=== PATIENT | female | born 1945 | race Caucasian/White ===

== ENCOUNTER → 2017-07-29 15:54 | Outpatient (CLI) | payer MEDICARE, OTHER, SELFPAY | PROVIDERS: Family Provider Family Medicine; PCP Family Medicine; Visit Provider Family Medicine | DX: R30.0 Dysuria (principal) | CPT/HCPCS: 87086; 87088 ==

== ENCOUNTER → 2017-09-05 12:55 | Outpatient (CLI) | payer MEDICARE, OTHER, SELFPAY ==
--- NOTE | 2017-09-05 12:58 | CT_ITS ---
STUDY: CT CHEST WITHOUT CONTRAST REASON FOR EXAM: Female, 71 years old. COPD /EMPHYSEMA FOLLOW UP PRIOR SMOKER-QUIT RADIATION DOSAGE (If Supplied By Facility): CTDIvol = ( 20.13 ) mGy, DLP = ( 726.59 ) mGycm TECHNIQUE: Transaxial imaging was performed without the administration of intravenous contrast material. Individualized dose optimization techniques were used for this CT. COMPARISON: 39 FINDINGS: There is no pneumothorax. There are emphysematous changes of the lungs with emphysematous blebs. There is no demonstrated pleural abnormality. There are calcifications of the coronary arteries. Normal mediastinum. Normal hilar regions. Normal pulmonary arteries. There is atherosclerotic calcification of the aortic arch with tortuosity and elongation of the aortic arch and descending thoracic aorta. There are multi-level degenerative changes of the thoracic spine. The gallbladder is not visualized. CT/Chest without Contrast IMPRESSION: Emphysematous changes of the lungs. There are coronary arterial calcifications. Electronically Signed: Saroj Dumont MD at 17:41 EDT , Service support ,
[2017-09-05 14:03] LABS: Erythrocyte Sedimentation Rate 16 mm/hr (0-30)
[2017-09-05 14:15] LABS: Rheumatoid Factor < 10.0 IU/mL (<15)
[2017-09-07 14:26] LABS: Angiotensin Convert Enzyme 26 U/L (14-82)
[2017-09-07 14:31] LABS: ANTINUCLEAR ANTIBODIES DIRECT Positive (Negative)
== END ==
PROVIDERS: Family Provider Family Medicine; PCP Family Medicine; Visit Provider Internal Medicine Pulmonary Disease
DX: J44.9 Chronic obstructive pulmonary disease, unspecified (principal)
CPT/HCPCS: 36415; 71250; 82164; 85652; 86038; 86431

== ENCOUNTER → 2017-12-12 07:13 | Outpatient (CLI) | payer MEDICARE, OTHER, SELFPAY ==
[2017-12-12 07:45] LABS: Absolute Lymphocyte Count 1.83 X10^3/ul (0.83-4.51); Absolute Neutrophil Count 5.8 X10^3/uL (2.0-7.7); Basophil# 0.09 X10^3/uL; Eosinophil# 0.28 X10^3/uL; Eosinophils% 3.2 % (0-5); Hematocrit 43.3 % (37-47); Hemoglobin 13.3 g/dl (12.0-15.0); Lymphocyte # 1.83 X10^3/ul (4.0); Lymphocyte % 20.7 % (19-41); Mean Corp Hgb Conc 30.7 g/gl (32-36); Mean Corpuscular Hgb 25.7 pg (27.0-32.0); Mean Corpuscular Volume 83.6 fL (81-99); Mean Platelet Vol. 10.1 fl (6.2-12.0); Monocyte# 0.89 X10^3/uL; Neutrophil # 5.76 X10^3/uL (2.7-7.7); Platelet Count 228 K/mm3 (150-450); RBC Distribution Width CV 13.5 % (11.6-14.6); RBC Distribution Width SD 41.1 fl (35.1-43.9); Red Blood Count 5.18 M/mm3 (4.2-5.4); White Blood Count 8.9 K/mm3 (4.4-11.0)
[2017-12-12 07:46] LABS: POSITIVE COUNT NO; POSITIVE DIFFERENTIAL NO; POSITIVE MORPHOLOGY NO
[2017-12-12 08:23] LABS: Hemoglobin A1c 6.7 % (4.2-6.3)
[2017-12-12 08:40] LABS: ALB/GLOB Ratio 0.9 RATIO (0.9-2.4); AST(SGOT) 73 U/L (15-37); Alanine Aminotransfer ALT/SGPT 84 U/L (13-56); Albumin, Serum 3.4 g/dL (3.2-5.0); Alkaline Phosphatase 145 U/L (45-117); Anion Gap 6 (5-15); BUN 10 mg/dL (7-18); BUN/Creat Ratio 11.8 RATIO (10-20); Calcium,Total 9.1 mg/dL (8.5-10.1); Chloride 101 mmol/L (98-107); Cholesterol 146 mg/dL (200); Creatinine, Serum 0.85 mg/dL (0.55-1.02); EST Glomerular Filtration Rate 70 mL/min (>60); Est Glom Filt Rate - Afr Amer 85 mL/min (>60); Globulin 3.9 g/dL (2.2-4.2); Glucose 105 mg/dL (74-106); High Density Lipoprotein 38 mg/dL; Potassium 4.7 mmol/L (3.5-5.1); Protein, Total 7.3 g/dL (6.4-8.2); Sodium Level 140 mmol/L (136-145); Thyroid Stim Hormone (TSH) 0.97 uIU/mL (0.358-3.74); Triglycerides 174 mg/dL; Very Low Density Lipoprotein 35 mg/dL (5-40)
== END ==
PROVIDERS: Family Provider Family Medicine; PCP Family Medicine; Visit Provider Family Medicine
DX: E11.9 Type 2 diabetes mellitus without complications (principal); E78.5 Hyperlipidemia, unspecified; E03.9 Hypothyroidism, unspecified; R53.83 Other fatigue; E55.9 Vitamin D deficiency, unspecified
CPT/HCPCS: 36415; 80053; 80061; 82306; 83036; 84443; 85025

== ENCOUNTER → 2018-03-06 08:00 | Outpatient (CLI) | payer MEDICARE, OTHER, SELFPAY | PROVIDERS: Family Provider Family Medicine; PCP Family Medicine; Visit Provider Family Medicine | DX: Z12.31 Encounter for screening mammogram for malignant neoplasm of breast (principal) | CPT/HCPCS: 77063; 77067 ==

== ENCOUNTER → 2018-05-02 10:42 | Outpatient (CLI) | payer MEDICARE, OTHER, SELFPAY ==
[2018-05-02 11:40] LABS: Erythrocyte Sedimentation Rate 19 mm/hr (0-30)
[2018-05-03 16:08] LABS: Anti-Scleroderma-70 AB <0.2 AI (0.0-0.9); RNP Ab 0.3 AI (0.0-0.9); SJOGREN'S Anti-SS-A test < 0.2 AI (0.0-0.9); SJOGREN'S Anti-SS-B test < 0.2 AI (0.0-0.9); Smith Ab <0.2 AI (0.0-0.9)
[2018-05-04 12:09] LABS: Anti-dsDNA Ab <1 IU/mL (0-9)
== END ==
PROVIDERS: Family Provider Family Medicine; PCP Family Medicine; Referring Provider Internal Medicine Pulmonary Disease; Visit Provider Internal Medicine Pulmonary Disease
DX: J84.10 Pulmonary fibrosis, unspecified (principal); R76.0 Raised antibody titer
CPT/HCPCS: 36415; 85652; 86225; 86235

== ENCOUNTER → 2018-12-04 | Outpatient (CLI) | payer MEDICARE, OTHER, SELFPAY ==
[2018-11-06 10:32] VITALS: BMI 33.4
[2018-12-04 10:21] LABS: Absolute Lymphocyte Count 1.45 X10^3/ul (0.83-4.51); Absolute Neutrophil Count 4.6 X10^3/uL (2.0-7.7); Basophil# 0.07 X10^3/uL; Eosinophil# 0.27 X10^3/uL; Eosinophils% 3.7 % (0-5); Hematocrit 41.6 % (37-47); Hemoglobin 12.8 g/dl (12.0-15.0); Lymphocyte # 1.45 X10^3/ul (4.0); Lymphocyte % 19.9 % (19-41); Mean Corp Hgb Conc 30.8 g/gl (32-36); Mean Corpuscular Volume 81.4 fL (81-99); Mean Platelet Vol. 10.1 fl (6.2-12.0); Monocyte# 0.86 X10^3/uL; Monocyte% 11.8 % (0-10); Neutrophil # 4.63 X10^3/uL (2.7-7.7); Neutrophil % 63.3 % (47-70); Platelet Count 289 K/mm3 (150-450); RBC Distribution Width CV 14.4 % (11.6-14.6); RBC Distribution Width SD 41.9 fl (35.1-43.9); Red Blood Count 5.11 M/mm3 (4.2-5.4); White Blood Count 7.3 K/mm3 (4.4-11.0)
[2018-12-04 10:31] LABS: POSITIVE COUNT NO; POSITIVE DIFFERENTIAL NO; POSITIVE MORPHOLOGY NO
[2018-12-04 10:47] LABS: Microalbumin,Random Urine < 5.0 mg/L (NO RANGE EST.)
[2018-12-04 10:51] LABS: Hemoglobin A1c 6.9 % (4.2-6.3)
[2018-12-04 10:53] LABS: ALB/GLOB Ratio 0.8 RATIO (0.9-2.4); AST(SGOT) 63 U/L (15-37); Alanine Aminotransfer ALT/SGPT 46 U/L (13-56); Alkaline Phosphatase 119 U/L (45-117); Anion Gap 4 (5-15); BUN 7 mg/dL (7-18); BUN/Creat Ratio 9.6 RATIO (10-20); Chloride 100 mmol/L (98-107); Cholesterol 170 mg/dL (200); Creatinine, Serum 0.73 mg/dL (0.55-1.02); EST Glomerular Filtration Rate 83 mL/min (>60); Est Glom Filt Rate - Afr Amer 101 mL/min (>60); Globulin 3.9 g/dL (2.2-4.2); Glucose 102 mg/dL (74-106); High Density Lipoprotein 37 mg/dL; Potassium 4.7 mmol/L (3.5-5.1); Protein, Total 6.9 g/dL (6.4-8.2); Sodium Level 137 mmol/L (136-145); T4 Free Direct 1.12 ng/dL (0.76-1.46); Thyroid Stim Hormone (TSH) 1.27 uIU/mL (0.358-3.74); Triglycerides 211 mg/dL; Very Low Density Lipoprotein 42 mg/dL (5-40)
== END | disposition home or self-care (01) ==
LOC: LAB 10:03
PROVIDERS: Family Provider Family Medicine; PCP Family Medicine; Referring Provider Family Medicine; Visit Provider Family Medicine
DX: E11.9 Type 2 diabetes mellitus without complications (principal); E03.9 Hypothyroidism, unspecified; E78.5 Hyperlipidemia, unspecified; R53.83 Other fatigue; Z51.81 Encounter for therapeutic drug level monitoring
CPT/HCPCS: 36415; 80053; 80061; 82043; 82570; 83036; 84439; 84443; 85025

== ENCOUNTER → 2018-12-14 | Outpatient (CLI) | payer MEDICARE, OTHER, SELFPAY ==
[2018-11-06 10:32] VITALS: BMI 33.4
--- NOTE | 2018-12-14 08:43 | RAD_ITS ---
HISTORY: CHRONIC PAIN, NKI ADDITIONAL HISTORY: None provided. COMPARISON: None TECHNIQUE: Right shoulder 4 views Number of images including paperwork: 4 FINDINGS: BONES: No acute fracture. JOINTS: No subluxation. Mild degenerative changes of the glenohumeral joint. Moderate degenerative changes of the acromion clavicular joint. SOFT TISSUES: No distinct foreign body. Mild apical pleural parenchymal scarring. RAD/Shoulder min 2 Views IMPRESSION: Degenerative changes without acute osseous abnormality. at 2220 Reported and signed by: Ifeoma Ramsey MD Electronically Signed: Ifeoma Ramsey MD at 22:20 EDT Tel , Service support ,
--- NOTE | 2018-12-14 08:46 | ECHOD_ITS ---
Reason For Study: murmur Procedure This was a 2D Doppler, Color Flow transthoracic echocardiogram. The study was technically difficult. Exam performed in department. Left Ventricle Normal LV size. Sigmoid septum. Left ventricular systolic function is normal. The estimated ejection fraction is 65 %. Diastolic function is indeterminate. No regional wall motion abnormalities noted. Right Ventricle Normal RV size. Normal systolic function. Atria The left atrium is mildly enlarged. Normal right atrium. Aneurysmal atrial septum. No doppler evidence for ASD. Mitral Valve There is mild mitral annular calcification. Mild diffuse mitral valve thickening. Equivocal mitral valve prolapse. Mild (1+) mitral valve insufficiency. Tricuspid Valve Normal tricuspid valve. Mild to moderate (1-2+) eccentric tricuspid valve insufficiency. Right ventricular systolic pressure estimated to be 37 mmHg. Aortic Valve Trisinus/trileaflet aortic valve. Mild diffuse aortic valve thickening. Pulmonic Valve The pulmonic valve is not well visualized. Mild (1+) pulmonic valve insufficiency. Great Vessels Normal sized aortic root. Pericardium/Pleural No pericardial effusion. MMode/2D Measurements & Calculations LVIDd: 4.2 cm IVSd: 1.7 cm Ao root diam: 3.0 cm LVIDs: 2.9 cm LVPWd: 1.0 cm RVDd: 3.5 cm FS: 30.3 % LAV(MOD-bp): 81.0 ml LA A4 area: 24.6 cm2 LA dimension(2D): 4.1 cm LAV(MOD-bp) Indexed: 40.9 ml/m2 LAV(MOD-sp2): 77.7 ml LAV(MOD-sp4): 85.0 ml RA A4 area: 17.2 cm2 Time Measurements MV dec time: 0.27 sec Doppler Measurements & Calculations MV E max erick: 71.0 cm/sec Lat Peak E' Erick: 10.1 cm/sec Med Peak E' Erick: 7.4 cm/sec MV A max erick: 80.2 cm/sec E/E' lat: 7.0 E/E' med: 9.7 MV E/A: 0.88 Ao V2 max: 141.8 cm/sec LV V1 max: 123.1 cm/sec PA V2 max: 85.9 cm/sec Ao max P.0 mmHg LV V1 max P.1 mmHg TR max erick: 292.8 cm/sec TR max P.4 mmHg Interpretation Summary Left ventricular systolic function is normal. The estimated ejection fraction is 65 %. Sigmoid septum. The left atrium is mildly enlarged. Aneurysmal atrial septum. There is mild mitral annular calcification. Equivocal mitral valve prolapse. Mild diffuse mitral valve thickening. Mild (1+) mitral valve insufficiency. Mild to moderate (1-2+) eccentric tricuspid valve insufficiency. Mild diffuse aortic valve thickening. Mild (1+) pulmonic valve insufficiency. Right ventricular systolic pressure estimated to be 37 mmHg. Diastolic function is indeterminate. Ordering Physician: Giancarlo Rodríguez Referring Physician: Lisa Lang Performed By: Belgica Alvares, JEY, RVT
== END | disposition home or self-care (01) ==
LOC: CVS 08:41
PROVIDERS: Family Provider Family Medicine; PCP Family Medicine; Referring Provider Internal Medicine Cardiovascular Disease; Visit Provider Internal Medicine Cardiovascular Disease
DX: I34.1 Nonrheumatic mitral (valve) prolapse (principal); I36.9 Nonrheumatic tricuspid valve disorder, unspecified; I47.1 Supraventricular tachycardia; I49.1 Atrial premature depolarization; I49.3 Ventricular premature depolarization; M25.511 Pain in right shoulder
CPT/HCPCS: 73030; 93306

== ENCOUNTER → 2019-04-03 | Outpatient (CLI) | payer MEDICARE, OTHER, SELFPAY ==
[2018-11-06 10:32] VITALS: BMI 33.4
--- NOTE | 2019-04-03 14:41 | CT_ITS ---
STUDY: CT PELVIS WITH CONTRAST REASON FOR EXAM: Female, 73 years old. Pelvic pain. Diabetes. RADIATION DOSAGE (If Supplied By Facility): CTDIvol = ( 17.64 ) mGy, DLP = ( 625.55 ) mGycm TECHNIQUE: Transaxial imaging of the pelvis was performed without oral contrast. IV/Oral Isovue 300 100ml was administered intravenously. Individualized dose optimization techniques were used for this CT. COMPARISON: None. FINDINGS: Normal urinary bladder. Normal visualized small intestine. There are multiple colonic diverticula of the sigmoid colon consistent with chronic diverticulosis. There is no pelvic fluid. There is no pelvic lymphadenopathy or mass lesion. There is atrophy of the uterus. There is diffuse atherosclerotic calcification of the pelvic arteries with elongation and tortuosity. Normal abdominal wall. There are diffuse degenerative changes of the visualized lumbar spine. Severe anterolisthesis of L5 seen in there is severe degenerative disc disease at L5-S1. CT/Pelvis WITH IV Contrast IMPRESSION: Degenerative changes of the lower lumbar spine. Otherwise no acute ecchymotic. Electronically Signed: John Tang MD at 14:32 EDT , Service support ,
[2019-04-03 15:01] LABS: CREATININE FINGERSTICK 0.6 mg/dL (0.55-1.02); EGFR FINGERSTICK > 60.0000 mL/min (>60)
--- NOTE | 2019-04-03 15:16 | BI_ITS ---
BILATERAL DIGITAL MAMMOGRAM WITH TOMOSYNTHESIS: Mediolateraloblique and craniocaudal views demonstrate a small 1 cm lobulated masslike lesion seen in the lateral aspect of the left breast at about the 2:00 position. This is of uncertain etiology and was not seen previously, on the prior exam obtained on 03/06/2018. Although this has a smooth margin and probably represents a fibroadenoma the new appearance of this lesion is suspicious and a follow-up targeted left breast ultrasound in the superior lateral positioning is recommended for additional evaluation. No cluster of microcalcifications or architectural distortion is seen. No evidence of skin thickening is identified. Breast Density: The breast tissue is almost entirely fatty. CAD was used to assist in final assessment. IMPRESSION: A lobular 1 cm nodular density seen in the lateral aspect of the left breast of uncertain etiology. This probably represents a fibroadenoma or possibly a cyst, however, since was previously not seen a tumor cannot be completely excluded and a targeted left breast ultrasound is recommended for further evaluation. FINAL ASSESSMENT: BI-RAD CATEGORY 0 INCOMPLETE: (NEEDS ADDITIONAL IMAGINING EVALUATION) YEARLY MAMMOGRAM RECOMMENDED Approximately 10% of breast cancers are not detected by mammography. A normal mammogram should not delay biopsy of a clinically suspicious abnormality. Electronically Signed: Monster Stanton, at 20:21 EDT Tel , Service support , BI/SCREEN MAMM (CAD) W/DENISE HOOPER
== END | disposition home or self-care (01) ==
PROVIDERS: Family Provider Family Medicine; PCP Family Medicine; Referring Provider Family Medicine; Visit Provider Family Medicine
DX: R10.2 Pelvic and perineal pain (principal); K41.20 Bilateral femoral hernia, without obstruction or gangrene, not specified as recurrent; Z12.31 Encounter for screening mammogram for malignant neoplasm of breast
CPT/HCPCS: 72193; 77063; 77067; Q9967

== ENCOUNTER → 2019-04-05 | Outpatient (CLI) | payer MEDICARE, OTHER, SELFPAY ==
[2018-11-06 10:32] VITALS: BMI 33.4
--- NOTE | 2019-04-05 15:07 | US_ITS ---
STUDY: ULTRASOUND BREAST - LEFT REASON FOR EXAM: Female, 73 years old. Ultrasound of a nodular density in the superior lateral left breast TECHNIQUE: Axial and longitudinal images of the LEFT breast were performed with a high resolution ultrasound transducer. COMPARISON: Previous mammogram taken on 04/03/2019 FINDINGS: LEFT Breast: There is a lobular 9 x 6 x 5 mm nodular density corresponding to a lobular density noted on the recent mammogram in the superior lateral aspect of the right breast. This lobular density has good through-transmission with a well-defined margin in good back wall and represents a simple cyst. US/Breast Limited Unilateral IMPRESSION: The lobular density in the left breast represents a small simple cyst. ASSESSMENT CATEGORY: FINAL ASSESSMENT: BI-RAD CATEGORY II (BENIGN FINDING) YEARLY MAMMOGRAPHY RECOMMENDED Electronically Signed: Monster Stanton, at 7:55 EDT Tel , Service support ,
== END | disposition home or self-care (01) ==
LOC: OPUS 15:01
PROVIDERS: Family Provider Family Medicine; PCP Family Medicine; Referring Provider Family Medicine; Visit Provider Family Medicine
DX: R92.2 Inconclusive mammogram (principal)
CPT/HCPCS: 76642

== ENCOUNTER → 2019-06-15 08:19 | Outpatient (CLI) | payer MEDICARE, OTHER, SELFPAY ==
[2018-11-06 10:32] VITALS: BMI 33.4
--- NOTE | 2019-06-15 08:35 | RAD_ITS ---
STUDY: X-RAY CHEST REASON FOR EXAM: Female, 73 years old. Chest pain TECHNIQUE: PA and lateral views of the chest. COMPARISON: 12/23/2014 FINDINGS: Right hemidiaphragm remains elevated but stable. There is no demonstrated pleural abnormality. Normal size heart. Normal mediastinum and scot. Normal visualized pulmonary arteries. Normal visualized aortic arch and descending thoracic aorta. There is demineralization of the osseous structures. Normal visualized ribs, clavicles, and shoulders. There is no demonstrated abnormality of the visualized soft tissue structures of the upper abdomen. RAD/Chest PA and Lateral IMPRESSION: 1. No acute cardiopulmonary process. Stable exam. Electronically Signed: Harsh Gale MD (Brooks) at 12:33 EST , Service support ,
[2019-06-15 09:01] LABS: Erythrocyte Sedimentation Rate 7 mm/hr (0-30)
[2019-06-15 09:03] LABS: Absolute Lymphocyte Count 1.54 X10^3/uL (0.83-4.51); Absolute Neutrophil Count 5.6 X10^3/uL (2.0-7.7); Basophil# 0.11 X10^3/uL; Basophil% 1.3 % (0-1); Eosinophil# 0.26 X10^3/uL; Eosinophils% 3.1 % (0-5); Hematocrit 42.2 % (37-47); Hemoglobin 12.6 g/dL (12.0-15.0); Lymphocyte # 1.54 X10^3/ul (4.0); Lymphocyte % 18.5 % (19-41); Mean Corp Hgb Conc 29.9 g/dL (32-36); Mean Corpuscular Hgb 25.3 pg (27.0-32.0); Mean Corpuscular Volume 84.7 fL (81-99); Mean Platelet Vol. 11.1 fl (6.2-12.0); Monocyte# 0.76 X10^3/uL; Monocyte% 9.1 % (0-10); NRBC Flagged by Analyzer 0 % (0-5); Neutrophil # 5.63 X10^3/uL (2.7-7.7); Neutrophil % 67.6 % (47-70); Platelet Count 226 K/mm3 (150-450); RBC Distribution Width CV 13.8 % (11.6-14.6); RBC Distribution Width SD 42.5 fl (35.1-43.9); Red Blood Count 4.98 M/mm3 (4.2-5.4); White Blood Count 8.3 K/mm3 (4.4-11.0)
[2019-06-15 09:16] LABS: Vitamin D,25 Hydroxy 50.9 ng/mL (29.95-100.01)
[2019-06-15 09:18] LABS: ALB/GLOB Ratio 0.9 RATIO (0.9-2.4); AST(SGOT) 46 U/L (15-37); Alanine Aminotransfer ALT/SGPT 46 U/L (13-56); Albumin, Serum 3.4 g/dL (3.2-5.0); Alkaline Phosphatase 128 U/L (45-117); Anion Gap 2 (5-15); BUN 8 mg/dL (7-18); BUN/Creat Ratio 9.9 RATIO (10-20); CRP 8.68 mg/L (0.0-3.0); Calcium,Total 8.6 mg/dL (8.5-10.1); Chloride 104 mmol/L (98-107); Creatinine, Serum 0.81 mg/dL (0.55-1.02); EST Glomerular Filtration Rate 74 mL/min (>60); Est Glom Filt Rate - Afr Amer 90 mL/min (>60); Free T3 2.7 pg/mL (2.18-3.98); Globulin 3.7 g/dL (2.2-4.2); Glucose 106 mg/dL (74-106); Potassium 4.9 mmol/L (3.5-5.1); Protein, Total 7.1 g/dL (6.4-8.2); Sodium Level 140 mmol/L (136-145); T4 Free Direct 1.36 ng/dL (0.76-1.46); Thyroid Stim Hormone (TSH) 1.12 uIU/mL (0.358-3.74)
== END ==
PROVIDERS: Family Provider Family Medicine; PCP Family Medicine; Referring Provider Family Medicine; Visit Provider Family Medicine
DX: E03.9 Hypothyroidism, unspecified (principal); M79.10 Myalgia, unspecified site; R07.9 Chest pain, unspecified; E55.9 Vitamin D deficiency, unspecified; R53.83 Other fatigue; M25.50 Pain in unspecified joint; Z51.81 Encounter for therapeutic drug level monitoring
CPT/HCPCS: 36415; 71046; 80053; 82306; 84439; 84443; 84481; 85025; 85652; 86140

== ENCOUNTER 2020-03-20 15:25 | Inpatient (IN) | payer MEDICARE, OTHER, SELFPAY ==
[2019-11-12 10:38] VITALS: BMI 31.6
[2020-03-20] VITALS (17 sets, daily range): BP systolic 107–146; BP diastolic 57–81; PULSE 60–79; RESP 11–18; TEMP 36.1–36.9; O2SAT 92–97; BMI 33.6; BMI 33.2
--- NOTE | 2020-03-20 15:35 | EKG12_ITS ---
Test Reason : AM EKG Blood Pressure : / mmHG Vent. Rate : 084 BPM Atrial Rate : 084 BPM P-R Int : 182 ms QRS Dur : 090 ms QT Int : 358 ms P-R-T Axes : 061 058 037 degrees QTc Int : 423 ms Normal sinus rhythm with sinus arrhythmia Normal ECG When compared with ECG of 20-MAR-2020 22:50, MANUAL COMPARISON REQUIRED, DATA IS UNCONFIRMED Confirmed by SUPA PHILLIPS, GREGORY ([id number]), editor magazine ANNITA ZAYAS ([id number]) on 03/25/2020 12:41:18 PM Referred By: LEEANNA Confirmed By:GREGORY COWART MD
--- NOTE | 2020-03-20 15:36 | ED.VISSUMM ---
- ER Visit Summary Date of Service: 03/20/20 Chief Complaint: [Chest pain] History of Present Illness: The patient is a 74 F [presents to the emergency department complaint of pain in her chest since around 9 AM. Discomfort is been continuous. She describes a tightness that radiates into her right shoulder. She feels somewhat short of breath with it. Patient she states that she tried her inhaler and seemed to maybe make a little bit of a difference and improvement. She currently rates her pain a 6 out of 10. She denies nausea or vomiting. She denies recent travel or surgery. Denies recent illness. She has had no COVID-19 exposures. Patient has history of COPD, GERD, diabetes, high cholesterol, history of SVT. Patient does not wear home oxygen. Patient tells me she had a stress test years ago and she thinks she had a heart cath more than 2 years ago that was unremarkable.] Physical Examination: [HEENT-PERRLA, EOMI. Cranial nerves II through XII grossly intact. TMs clear. Mucous membranes moist. No adenopathy. Cardiovascular-regular rate and rhythm without murmur or ectopy Lungs-clear to auscultation, chest wall stable without crepitus or subcu emphysema Abdomen-normoactive bowel sounds, soft, nontender, no rebound or rigidity, no peritoneal signs. Extremities-intact ?4, normal range of motion, normal pulses, atraumatic] Test Results: [EKG obtained arrival shows sinus rhythm with a ventricular rate of 70 bpm with no acute ST segment changes.] Chest x-ray obtained showed nothing acute. CBC with differential showed white count 12.9, hemoglobin 12.9, hematocrit 43, placed 232. Chemistries unremarkable. Troponin was less than 0.15. D-dimer was 0.61 however when corrected for age it is normal. Emergency Department Course and Treatment: [ Established on arrival. Patient was given normal saline. Patient given aspirin and sublingual nitro which resolved her pain. Patient had an inch of Nitropaste placed to the anterior chest wall. Patient received Tylenol for headache.] Treatment Plan: [Admit for further work-up and evaluation of her chest pain] Disposition: [Admit] Impression: [Chest pain-rule out acute coronary syndrome] This note was generated with [employer] software. It may contain incorrect words, spelling, and punctuation that were not noted in review of the chart prior to signing ED Disposition - Plan for ED Patient: Referrals: Lisa Lang DO [Primary Care Provider] -
[2020-03-20] MEDS: Aspirin 81 MG TAB.CHEW 324 MG PO (15:42)
[2020-03-20] MEDS: Nitroglycerin SL (ED/IMG/CATH) 0.4 MG TABLET SUBLINGUAL ×2 (15:43→15:48)
[2020-03-20] MEDS: 0.9% Normal Saline 1,000 ML 150 ML IV (15:44)
--- NOTE | 2020-03-20 15:55 | RAD_ITS ---
STUDY: X-RAY CHEST REASON FOR EXAM: Female, 74 years old. CHEST PAIN TECHNIQUE: AP portable COMPARISON: 06/15/2019 FINDINGS: Nonspecific elevation of the right hemidiaphragm.. Lungs are clear. There is no demonstrated pleural abnormality. Normal size heart. Normal mediastinum and scot. Normal visualized pulmonary arteries. Mildly calcified aortic arch and descending thoracic aorta. Dorsal spine and shoulders demonstrate mild degenerative change. Normal visualized ribs, clavicles, and shoulders. There is no demonstrated abnormality of the visualized soft tissue structures of the upper abdomen. No significant change since prior exam RAD/Chest 1 View (Portable) IMPRESSION: No acute cardiopulmonary pathology Electronically Signed: Tucker Ojeda MD at 16:14 EDT , Service support ,
[2020-03-20 16:00] LABS: Absolute Lymphocyte Count 1.78 X10^3/uL (0.83-4.51); Absolute Neutrophil Count 9.8 X10^3/uL (2.0-7.7); Basophil# 0.09 X10^3/uL; Basophil% 0.7 % (0-1); Eosinophil# 0.17 X10^3/uL; Eosinophils% 1.3 % (0-5); Hematocrit 43.5 % (37-47); Hemoglobin 12.9 g/dL (12.0-15.0); Lymphocyte # 1.78 X10^3/ul (4.0); Lymphocyte % 13.8 % (19-41); Mean Corp Hgb Conc 29.7 g/dL (32-36); Mean Corpuscular Hgb 25.2 pg (27.0-32.0); Mean Corpuscular Volume 85.1 fL (81-99); Monocyte# 1.04 X10^3/uL; Monocyte% 8.1 % (0-10); NRBC Flagged by Analyzer 0 % (0-5); Neutrophil # 9.77 X10^3/uL (2.7-7.7); Neutrophil % 75.7 % (47-70); Platelet Count 232 K/mm3 (150-450); RBC Distribution Width CV 13.5 % (11.6-14.6); RBC Distribution Width SD 42.2 fl (35.1-43.9); Red Blood Count 5.11 M/mm3 (4.2-5.4); White Blood Count 12.9 K/mm3 (4.4-11.0)
[2020-03-20] MEDS: Nitroglycerin Oint 1 INCH PACKET TRANSDERM. (16:03)
[2020-03-20] MEDS: Acetaminophen 500 MG Tablet 1000 MG PO (16:03)
[2020-03-20 16:11] LABS: Anion Gap 5 (5-15); BUN 8 mg/dL (7-18); BUN/Creat Ratio 10.3 RATIO (10-20); Chloride 102 mmol/L (98-107); Creatinine, Serum 0.78 mg/dL (0.55-1.02); EST Glomerular Filtration Rate 77 mL/min (>60); Est Glom Filt Rate - Afr Amer 94 mL/min (>60); Glucose 80 mg/dL (74-106); Potassium 3.9 mmol/L (3.5-5.1); Sodium Level 140 mmol/L (136-145)
[2020-03-20 16:49] LABS: D-Dimer Quantitative (DVT/PE) 0.61 FEU/ug/m (0.27-0.49)
--- NOTE | 2020-03-20 17:18 | PCM.HP.STD ---
<Valerie Ruiz STAFFING ADMINISTRATOR - Last Filed: 03/20/20 17:37> Problem List (1) Ectopic atrial tachycardia Status: Chronic (2) Premature ventricular contraction Status: Chronic (3) Premature atrial contraction Status: Chronic (4) Pure hypercholesterolemia Status: Chronic (5) Nonrheumatic mitral (valve) prolapse Status: Chronic (6) Nonrheumatic tricuspid valve disorder Status: Chronic (7) Paroxysmal SVT (supraventricular tachycardia) Status: Chronic (8) Abnormal EKG Status: Resolved (9) Angina pectoris Status: Acute (10) Right carotid bruit Status: Chronic History of Present Illness Date of Admission: 03/20/20 Chief Complaint: Chest tightness. The patient is a 74 year old F who presents to the emergency room due to chest pain. Patient reports chest tightness which began this morning and has continued throughout the day. She reports some pain radiation to her right shoulder area. She used her albuterol inhaler with mild improvement in symptoms. She denies any aggravating factors including activity. She denies shortness of breath, cough, fever, chills, lightheadedness. She denies recent illness. She states she has some mild underlying emphysema and occasionally has a cough and tightness in her chest. Her past medical history includes PACs/PVCs/ectopic atrial tachycardia, mitral valve prolapse/tricuspid valve regurgitation, hyperlipidemia, type 2 diabetes mellitus, anxiety, depression, hypothyroidism. Past Medical History Past Medical History (Chronic Problems): Chronic Problems (Last Reviewed 11/12/19 @ 10:42 by Bruna Armenta) Ectopic atrial tachycardia (Chronic) Premature ventricular contraction (Chronic) Premature atrial contraction (Chronic) Pure hypercholesterolemia (Chronic) Nonrheumatic mitral (valve) prolapse (Chronic) Nonrheumatic tricuspid valve disorder (Chronic) Paroxysmal SVT (supraventricular tachycardia) (Chronic) Right carotid bruit (Chronic) Medical History: Medical History (Last Reviewed 11/12/19 @ 10:42 by Bruna Armenta) Ectopic atrial tachycardia (Acute) I47.1 Premature ventricular contraction (Chronic) I49.3 Premature atrial contraction (Chronic) I49.1 Pure hypercholesterolemia (Chronic) E78.00 Nonrheumatic mitral (valve) prolapse (Chronic) I34.1 Nonrheumatic tricuspid valve disorder (Chronic) I36.9 Paroxysmal SVT (supraventricular tachycardia) (Chronic) I47.1 Palpitations (Acute) R00.2 Diabetes mellitus type 2, noninsulin dependent E11.9 GERD (gastroesophageal reflux disease) K21.9 COPD (chronic obstructive pulmonary disease) J44.9 Hyperlipidemia (Inactive) E78.5 Allergies cyclobenzaprine Allergy (Verified 03/20/20 15:26) Unknown diclofenac Allergy (Verified 03/20/20 15:26) Unknown trifluoperazine Allergy (Verified 03/20/20 15:26) Unknown Home Medications: Ambulatory Orders Medication Instructions Recorded Duloxetine Hcl [Cymbalta] 60 mg PO DAILY 02/17/15 Ergocalciferol [Vitamin D] 50,000 unit PO WE 02/17/15 Esomeprazole Mag Trihydrate 40 mg PO DAILY 02/17/15 [Nexium] Metoprolol(XL)Succ [Toprol Xl 100 mg PO DAILY 02/17/15 (Beta Mustapha)] Pravastatin [Pravachol] 20 mg PO QHS 02/17/15 albuterol sulfate 90 mcg/actuation 2 puff INHALATION Q4H PRN g 11/12/19 aerosol inhaler amitriptyline 10 mg tablet 20 mg PO QHS tab 11/12/19 metformin 500 mg tablet 500 mg PO TIDCM tab 11/12/19 Levothyroxine [Synthroid] 100 mcg PO DAILY 03/20/20 Multivitamin 1 tab PO DAILY 03/20/20 Surgical History: Surgical History (Last Reviewed 03/20/20 @ 17:29 by Valerie Ruiz NP, STAFFING ADMINISTRATOR-C) History of breast surgery Z98.890 Rt History of cholecystectomy Z98.890, Z90.49 History of tonsillectomy Z98.890, Z90.89 Psychiatric History: No pertinent psych hx 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 Smoking Status: Former smoker Alcohol: None Drugs: None - *Family History Maternal Family History: Family History (Last Reviewed 03/20/20 @ 17:29 by Valerie Ruiz NP, STAFFING ADMINISTRATOR-C) Mother Heart disease Brother Myocardial infarction, Onset Age: 63 Brother Diabetes Paternal Family History: Family History (Last Reviewed 03/20/20 @ 17:29 by Valerie Ruiz NP, STAFFING ADMINISTRATOR-C) Mother Heart disease Brother Myocardial infarction, Onset Age: 63 Brother Diabetes History Items: Heart Disease Review of Systems Constitutional: Denies: Chills, Fever, Weight Change HEENT: Denies: Head Aches, Sinus Congestion, Sinus Drainage Cardiovascular: Reports: Chest Tightness. Denies: Edema, Light Headedness, Palpitations, Syncope Respiratory: Denies: Cough, Shortness of breath at rest, Sputum production Gastrointestinal: Denies: Abdominal Pain, Nausea, Vomiting Genitourinary: Denies: Dysuria Musculoskeletal: Denies: Joint Pain, Joint Tenderness Skin: Denies: Rash, Wounds Neurological: Denies: Numbness, Tingling, Focal weakness Psychiatric: Denies: Anxiety, Depression, Homicidal Ideations, Suicidal Ideations Hematologic/ Lymphatic: Denies: Easy Bruising, Easy Bleeding VTE Information - Inpt Only VTE Present on Admission: No VTE Mechan Device Prophylaxis: None VTE Pharm Prophylaxis ordered?: Yes - Physical Exam Vitals/I&O's: Vital Signs Temp Pulse Resp BP Pulse Ox 97.8 F 64 16 128/61 H 97 03/20/20 17:05 03/20/20 17:05 03/20/20 17:05 03/20/20 17:05 03/20/20 17:05 Oxygen Flow Rate (L/min) 2 Oxygen Delivery Method Room Air Weight: 208 lb 6.4 oz Body Mass Index (BMI) 33.6 General: Alert, Oriented x3, Cooperative HEENT: Atraumatic, PERRLA, EOMI, Normocephalic Neck: Supple, No JVD, Negative Carotid Bruits Lungs: Clear to auscultation, Diminished Cardiovascular: Regular rate, No murmurs Abdomen: Bowel Sounds Present, Soft, Non Tender, Non-Distended, Obese Extremities: No clubbing, No cyanosis, No edema, Capillary Refill Less than 3 Seconds Skin: No rashes, No breakdown Musculoskeletal: No Tenderness to Palpation of Joints or Extremities Neurological: Cranial nerves II-XII grossly intact, Neuro grossly intact Psych/Mental Status: Normal Affect, Appropriate Laboratory Results 03/20/20 15:30: WBC 12.9 H, RBC 5.11, Hgb 12.9, Hct 43.5, MCV 85.1, MCH 25.2 L, MCHC 29.7 L, RDW Std Deviation 42.2, RDW Coeff of Fernie 13.5, Plt Count 232, MPV 11.0, Immature Gran % (Auto) 0.400, Neut % (Auto) 75.7 H, Lymph % (Auto) 13.8 L, [place] % (Auto) 8.1, Eos % (Auto) 1.3, Baso % (Auto) 0.7, Absolute Neuts (auto) 9.8 H, Absolute Lymphs (auto) 1.78, Nucleated RBC % 0 03/20/20 15:30: D-Dimer Quant (PE/DVT) 0.61 H* 03/20/20 15:30: Sodium 140, Potassium 3.9, Chloride 102, Carbon Dioxide 33.0 H, Anion Gap 5, BUN 8, Creatinine 0.78, Estim Creat Clear Calc 46.90, Est GFR (MDRD) Af Amer 94, Est GFR (MDRD) Non-Af 77, BUN/Creatinine Ratio 10.3, Glucose 80, Calcium 9.0, Troponin I < 0.015 Current Medications Sodium Chloride () 1,000 mls @ 150 mls/hr IV .Q6H40M LESLI Last Admin: 03/20/20 15:44 Dose: 150 mls/hr Documented by: Nitroglycerin (Nitrostat) 0.4 mg SUBLINGUAL Q5M PRN PRN Reason: Chest pain Last Admin: 03/20/20 15:48 Dose: 0.4 mg Documented by: Assessment/Plan All Active Problems (Last Reviewed 11/12/19 @ 10:42 by Bruna Armenta) Abnormal EKG (Resolved) Angina pectoris (Acute) 1. Chest pain, atypical-initial troponin negative. EKG without ST-T changes. Trend enzymes. Plan for stress test in a.m. Chest x-ray unremarkable. Heart cath in 2014 showed normal coronary arteries. 2. PACs/PVCs/ectopic atrial tachycardia- follows with Dr. Rodríguez. Denies recent palpitations. Continue metoprolol. 3. Mitral valve prolapse/tricuspid valve regurgitation-mild per echo November 2018. 4. Hyperlipidemia-continue statin. 5. Type 2 diabetes mellitus-hold oral regimen. Accu-Cheks with sliding scale insulin. 6. Anxiety/depression-continue duloxetine, amitriptyline. 7. Hypothyroidism-continue Synthroid regimen. DVT prophylaxis-Lovenox subcu This patient was seen by ARMANI Finney under the supervision of Dr. Bird. <Estefani Bird - Last Filed: 03/20/20 17:58> History of Present Illness The patient is a 74 year old F [] Past Medical History Medical History: Medical History (Last Reviewed 11/12/19 @ 10:42 by Bruna Armenta) Ectopic atrial tachycardia (Acute) I47.1 Premature ventricular contraction (Chronic) I49.3 Premature atrial contraction (Chronic) I49.1 Pure hypercholesterolemia (Chronic) E78.00 Nonrheumatic mitral (valve) prolapse (Chronic) I34.1 Nonrheumatic tricuspid valve disorder (Chronic) I36.9 Paroxysmal SVT (supraventricular tachycardia) (Chronic) I47.1 Palpitations (Acute) R00.2 Diabetes mellitus type 2, noninsulin dependent E11.9 GERD (gastroesophageal reflux disease) K21.9 COPD (chronic obstructive pulmonary disease) J44.9 Hyperlipidemia (Inactive) E78.5 Allergies cyclobenzaprine Allergy (Verified 03/20/20 15:26) Unknown diclofenac Allergy (Verified 03/20/20 15:26) Unknown trifluoperazine Allergy (Verified 03/20/20 15:26) Unknown Surgical History: Surgical History (Last Reviewed 03/20/20 @ 17:29 by Valerie Ruiz NP, STAFFING ADMINISTRATOR-C) History of breast surgery Z98.890 Rt History of cholecystectomy Z98.890, Z90.49 History of tonsillectomy Z98.890, Z90.89 - *Family History Maternal Family History: Family History (Last Reviewed 03/20/20 @ 17:29 by Valerie Ruiz NP, STAFFING ADMINISTRATOR-C) Mother Heart disease Brother Myocardial infarction, Onset Age: 63 Brother Diabetes Paternal Family History: Family History (Last Reviewed 03/20/20 @ 17:29 by Valerie Ruiz NP, STAFFING ADMINISTRATOR-C) Mother Heart disease Brother Myocardial infarction, Onset Age: 63 Brother Diabetes - Physical Exam Vitals/I&O's: Vital Signs Temp Pulse Resp BP Pulse Ox 97.8 F 64 16 128/61 H 97 03/20/20 17:05 03/20/20 17:05 03/20/20 17:05 03/20/20 17:05 03/20/20 17:05 Oxygen Flow Rate (L/min) 2 Oxygen Delivery Method Room Air Weight: 208 lb 6.4 oz Body Mass Index (BMI) 33.6 Laboratory Results 03/20/20 15:30: WBC 12.9 H, RBC 5.11, Hgb 12.9, Hct 43.5, MCV 85.1, MCH 25.2 L, MCHC 29.7 L, RDW Std Deviation 42.2, RDW Coeff of Fernie 13.5, Plt Count 232, MPV 11.0, Immature Gran % (Auto) 0.400, Neut % (Auto) 75.7 H, Lymph % (Auto) 13.8 L, [place] % (Auto) 8.1, Eos % (Auto) 1.3, Baso % (Auto) 0.7, Absolute Neuts (auto) 9.8 H, Absolute Lymphs (auto) 1.78, Nucleated RBC % 0 03/20/20 15:30: D-Dimer Quant (PE/DVT) 0.61 H* 03/20/20 15:30: Sodium 140, Potassium 3.9, Chloride 102, Carbon Dioxide 33.0 H, Anion Gap 5, BUN 8, Creatinine 0.78, Estim Creat Clear Calc 46.90, Est GFR (MDRD) Af Amer 94, Est GFR (MDRD) Non-Af 77, BUN/Creatinine Ratio 10.3, Glucose 80, Calcium 9.0, Troponin I < 0.015 Current Medications Sodium Chloride () 1,000 mls @ 150 mls/hr IV .Q6H40M LESLI Last Admin: 03/20/20 15:44 Dose: 150 mls/hr Documented by: Nitroglycerin (Nitrostat) 0.4 mg SUBLINGUAL Q5M PRN PRN Reason: Chest pain Last Admin: 03/20/20 15:48 Dose: 0.4 mg Documented by: Assessment/Plan Patient seen by Valerie LOMELI under my supervision Patient is a 74 y/o with a PMH as outlined who was admitted via the ED on 03/20/2020 with a complaint of chest pain. Chest pain she described as pressure-like and tightness in her chest. She denied any palpitations or dizziness, nausea vomiting or diarrhea. She had no aggravating or relieving factors loose and was given to the ED, chest pain was relieved by sublingual nitroglycerin. Initial troponin was negative and EKG showed no acute ST changes. O/E: Vital Signs Temp Pulse Resp BP Pulse Ox 97.8 F 64 16 128/61 H 97 03/20/20 17:05 03/20/20 17:05 03/20/20 17:05 03/20/20 17:05 03/20/20 17:05 General: Alert, Oriented x3, Cooperative HEENT: Atraumatic, PERRLA, EOMI, Normocephalic Neck: Supple, No JVD, Negative Carotid Bruits Lungs: Clear to auscultation, Diminished Cardiovascular: Regular rate, No murmurs Abdomen: Bowel Sounds Present, Soft, Non Tender, Non-Distended, Obese Extremities: No clubbing, No cyanosis, No edema, Capillary Refill Less than 3 Seconds Skin: No rashes, No breakdown Musculoskeletal: No Tenderness to Palpation of Joints or Extremities Neurological: Cranial nerves II-XII grossly intact, Neuro grossly intact Psych/Mental Status: Normal Affect, Appropriate She is being admitted to be managed for chest pain to r/o ACS. Initial troponin was negative. We will cycle troponins x3. She did have a heart cath in 2014 which showed normal coronaries. Chest x-ray was also unremarkable. To have stress test in the morning if troponins are negative. Rest as per ARMANI Finney's notes which I have reviewed and endorsed. Code status: Full code Patient and daughter counseled extensively about different types of CODE STATUS including full code, DNR CCA and DNR CCA. Patient elects to be full code. Total [id number] time 16 minutes. OBSV E&M: 82388 Initial observation care L2 Procedures: 18016 Advncd Care Plan 30 Min
--- NOTE | 2020-03-20 18:15 | EKG12_ITS ---
Test Reason : ADMISSION EKG Blood Pressure : / mmHG Vent. Rate : 065 BPM Atrial Rate : 065 BPM P-R Int : 198 ms QRS Dur : 090 ms QT Int : 430 ms P-R-T Axes : 061 055 042 degrees QTc Int : 447 ms Normal sinus rhythm with sinus arrhythmia Normal ECG When compared with ECG of 20-MAR-2020 15:33, MANUAL COMPARISON REQUIRED, DATA IS UNCONFIRMED Confirmed by SUPA PHILLIPS, GREGORY ([id number]), order editor ANNITA ZAYAS ([id number]) on 03/25/2020 12:41:39 PM Referred By: LEEANNA Confirmed By:GREGORY COWART MD
[2020-03-20] MEDS: Pravastatin 20 MG Tablet PO (21:16)
[2020-03-20] MEDS: Amitriptyline 10 MG Tablet 20 MG PO (21:16)
[2020-03-20 21:41] LABS: Bedside Glucose 148 mg/dL (70-110)
--- NOTE | 2020-03-20 22:34 | EKG12_ITS ---
Test Reason : CP Blood Pressure : / mmHG Vent. Rate : 067 BPM Atrial Rate : 067 BPM P-R Int : 194 ms QRS Dur : 094 ms QT Int : 404 ms P-R-T Axes : 053 054 041 degrees QTc Int : 426 ms Normal sinus rhythm Normal ECG When compared with ECG of 20-MAR-2020 18:44, MANUAL COMPARISON REQUIRED, DATA IS UNCONFIRMED Confirmed by SUPA PHILLIPS, GREGORY ([id number]), newspaper or periodical editor ANNITA ZAYAS ([id number]) on 03/25/2020 12:41:30 PM Referred By: LEEANNA Confirmed By:GREGORY COWART MD
--- NOTE | 2020-03-20 22:37 | NURSING ---
Addendum entered by Feli Iglesias 03/21/20 00:46: CP increased to 8/10 around 0000, aggravated by movement/changing position. CP in back, right arm/breast, and chest area. MD notified, 4th troponin and x1 dose morphine 1 mg IV ordered. Cnocha Iglesias RN Addendum entered by Feli Iglesias 03/20/20 23:17: Nitro SL given x3, CP down to 5/10, still in back/breast/arm/chest. Tylenol given for headache. VS stable, BP 118/63, HR 67. MD notified. Concha Iglesias RN Original Note: This RN entered the room around 2230, pt c/o of chest pain 8/10 radiating from her sternum to her right arm/breast area. VS obtained, BP 126/56, HR 65, SpO2 95% 2 L, RR 18. Pt denies shortness of breath. EKG ordered, called RT to obtain. Concha Iglesias RN
[2020-03-20] MEDS: Nitroglycerin (INPATIENT USE) 0.4 MG TAB.SUBL SUBLINGUAL ×3 (22:50→23:10)
[2020-03-20] MEDS: Acetaminophen 325 MG Tablet 650 MG PO (23:06)
[2020-03-21] VITALS (16 sets, daily range): BP systolic 104–124; BP diastolic 53–67; PULSE 62–101; RESP 14–20; TEMP 36.3–37.6; O2SAT 92–97
[2020-03-21] MEDS: Morphine 2 MG/ML Syringe 1 MG IV (00:14)
[2020-03-21] MEDS: 0.9% Saline Lock 10 ML Syringe IV ×6 (00:15→21:59)
[2020-03-21] MEDS: LORazepam 2 MG/ML Syringe 0.5 MG IV (02:44)
[2020-03-21] MEDS: Ondansetron 4 MG/2 ML Vial IV (04:58)
--- NOTE | 2020-03-21 05:00 | EKG12_ITS ---
Test Reason : CP Blood Pressure : / mmHG Vent. Rate : 070 BPM Atrial Rate : 070 BPM P-R Int : 184 ms QRS Dur : 088 ms QT Int : 392 ms P-R-T Axes : 040 054 045 degrees QTc Int : 423 ms Normal sinus rhythm Normal ECG Confirmed by CELESTINE PHILLIPS, DIAMOND ([id number]), telegraph editor ANNITA ZAYAS ([id number]) on 03/27/2020 12:49:11 P M Referred By: TRISH Confirmed By:JEAN MARIE SPRAGUE MD
[2020-03-21 05:09] LABS: Absolute Lymphocyte Count 0.92 X10^3/uL (0.83-4.51); Absolute Neutrophil Count 11.7 X10^3/uL (2.0-7.7); Basophil# 0.06 X10^3/uL; Basophil% 0.4 % (0-1); Eosinophil# 0.06 X10^3/uL; Eosinophils% 0.4 % (0-5); Hemoglobin 12.1 g/dL (12.0-15.0); Lymphocyte # 0.92 X10^3/ul (4.0); Lymphocyte % 6.5 % (19-41); Mean Corp Hgb Conc 29.5 g/dL (32-36); Mean Corpuscular Hgb 25.4 pg (27.0-32.0); Mean Corpuscular Volume 86.1 fL (81-99); Mean Platelet Vol. 10.1 fl (6.2-12.0); Monocyte# 1.27 X10^3/uL; NRBC Flagged by Analyzer 0 % (0-5); Neutrophil # 11.66 X10^3/uL (2.7-7.7); Neutrophil % 83.1 % (47-70); Platelet Count 182 K/mm3 (150-450); RBC Distribution Width CV 13.7 % (11.6-14.6); RBC Distribution Width SD 43.6 fl (35.1-43.9); Red Blood Count 4.76 M/mm3 (4.2-5.4); White Blood Count 14.1 K/mm3 (4.4-11.0)
[2020-03-21] MEDS: Aspirin E.C. 81 MG Tablet PO (06:03)
[2020-03-21] MEDS: Levothyroxine 100 MCG Tablet PO (06:03)
[2020-03-21] MEDS: Acetaminophen 325 MG Tablet 650 MG PO ×2 (06:08→16:38)
--- NOTE | 2020-03-21 06:30 | CT_ITS ---
HISTORY: CHEST PAIN, SOB ADDITIONAL HISTORY: None provided. EXAMINATION/TECHNIQUE: CTA Chest WO/W Contrast Injection PULMONARY EMBOLISM PROTOCOL: 2D and 3D images to include MIP and/or volume rendered images CONTRAST: IV 100mL [id number] Number of images including paperwork: 537 A radiation dose optimization technique was used for this scan. COMPARISON: CT chest 09/05/2017 FINDINGS: PULMONARY ARTERIES: No pulmonary arterial filling defects. AORTA AND GREAT VESSELS: Unremarkable. HEART/PERICARDIUM: Stably enlarged. Coronary calcification. Small amount of pericardial fluid. MEDIASTINUM: Unremarkable. ADENOPATHY: No pathologic appearing adenopathy. THYROID: Unremarkable visualized portions. LUNG PARENCHYMA: Left lower lobe opacity with volume loss. Dependent pulmonary opacities elsewhere suggestive of atelectasis. Emphysema. PLEURAL SPACES: Small left pleural effusion. UPPER ABDOMEN: Unremarkable. OSSEOUS AND SOFT TISSUE STRUCTURES: No acute skeletal findings. CT/CTA Chest W/WO Contrast IMPRESSION: 1. No pulmonary embolus detected. 2. Small left pleural effusion with associated left lower lobe atelectasis versus infiltrate. 3. Additional findings above. Individualized dose optimization techniques were used for this CT. at 0707 Reported and signed by: Ifeoma Ramsey MD Electronically Signed: Ifeoma Ramsey MD at 7:07 EDT Tel , Service support ,
[2020-03-21 07:41] LABS: Bedside Glucose 158 mg/dL (70-110)
[2020-03-21 08:52] LABS: BNP,B-Type NATRIURETIC PEPTIDE 161.4 pg/mL (0-100)
[2020-03-21] MEDS: Furosemide 40 MG/4 ML Vial IV (09:33)
[2020-03-21 10:39] LABS: M R Staph aureus DNA By PCR Negative (Negative); Probe Check PASS; Specimen Processing Control PASS
[2020-03-21] MEDS: Pantoprazole Sodium 40 MG Tablet PO (11:38)
[2020-03-21] MEDS: DULoxetine Hcl 60 MG Capsule PO (11:38)
[2020-03-21] MEDS: Metoprolol(XL)Succ 100 MG Tablet PO (11:38)
[2020-03-21] MEDS: guaiFENesin 1,200 MG Tablet 1200 MG PO ×2 (11:42→21:57)
--- NOTE | 2020-03-21 11:49 | PN_ITS ---
<Valerie Ruiz PITCH FILLER - Last Filed: 03/21/20 11:56> Subjective: Patient seen and examined. Denies further chest pain. Reports increased shortness of breath and cough overnight. Low-grade fever this morning. Placed on supplemental oxygen. - Physical Exam Vitals/I&O's: Vital Signs Temp Pulse Resp BP Pulse Ox 98.8 F 100 20 H 122/60 H 97 03/21/20 11:45 03/21/20 11:45 03/21/20 11:45 03/21/20 11:45 03/21/20 11:45 Oxygen Flow Rate (L/min) 4 Oxygen Delivery Method Nasal Cannula Weight: 206 lb Body Mass Index (BMI) 33.2 Intake and Output for Last 24 Hours 03/19/20 03/20/20 03/21/20 23:59 23:59 23:59 Intake Total 1140 / 1140 305 / 305 Balance 1140 / 1140 305 / 305 General: Alert, Oriented x3, Cooperative HEENT: Atraumatic, PERRLA, EOMI, Normocephalic Neck: Supple, No JVD, Negative Carotid Bruits Lungs: Diminished, - - Crackles left base Cardiovascular: Regular rate, No murmurs Abdomen: Bowel Sounds Present, Soft, Non Tender, Non-Distended Extremities: No clubbing, No cyanosis, No edema, Capillary Refill Less than 3 Seconds Skin: No rashes, No breakdown Musculoskeletal: No Tenderness to Palpation of Joints or Extremities Neurological: Cranial nerves II-XII grossly intact, Neuro grossly intact Psych/Mental Status: Normal Affect, Appropriate Microbiology Past 72 Hours 03/21/20 08:34 Interface Orders Respiratory Panel (PCR) - Final 03/21/20 09:53 Urine, Clean Catch Legionella Antigen - Final 03/21/20 09:53 Urine, Clean Catch Streptococcus pneumoniae Antigen (M - Final Laboratory Results 03/20/20 15:30: WBC 12.9 H, RBC 5.11, Hgb 12.9, Hct 43.5, MCV 85.1, MCH 25.2 L, MCHC 29.7 L, RDW Std Deviation 42.2, RDW Coeff of Fernie 13.5, Plt Count 232, MPV 11.0, Immature Gran % (Auto) 0.400, Neut % (Auto) 75.7 H, Lymph % (Auto) 13.8 L, [place] % (Auto) 8.1, Eos % (Auto) 1.3, Baso % (Auto) 0.7, Absolute Neuts (auto) 9.8 H, Absolute Lymphs (auto) 1.78, Nucleated RBC % 0 03/20/20 15:30: D-Dimer Quant (PE/DVT) 0.61 H* 03/20/20 15:30: Sodium 140, Potassium 3.9, Chloride 102, Carbon Dioxide 33.0 H, Anion Gap 5, BUN 8, Creatinine 0.78, Estim Creat Clear Calc 46.90, Est GFR (MDRD) Af Amer 94, Est GFR (MDRD) Non-Af 77, BUN/Creatinine Ratio 10.3, Glucose 80, Calcium 9.0, Troponin I < 0.015 03/20/20 18:57: Troponin I < 0.015 03/20/20 21:15: POC Glucose 148 H 03/20/20 21:38: Troponin I < 0.015 03/21/20 00:23: Troponin I < 0.015 03/21/20 04:55: WBC 14.1 H, RBC 4.76, Hgb 12.1, Hct 41.0, MCV 86.1, MCH 25.4 L, MCHC 29.5 L, RDW Std Deviation 43.6, RDW Coeff of Fernie 13.7, Plt Count 182, MPV 10.1, Immature Gran % (Auto) 0.600, Neut % (Auto) 83.1 H, Lymph % (Auto) 6.5 L, [place] % (Auto) 9.0, Eos % (Auto) 0.4, Baso % (Auto) 0.4, Absolute Neuts (auto) 11.7 H, Absolute Lymphs (auto) 0.92, Nucleated RBC % 0 03/21/20 04:55: B-Natriuretic Peptide 161.4 H 03/21/20 07:01: POC Glucose 158 H 03/21/20 08:30: MRSA (PCR) Negative 03/21/20 08:35: Lactic Acid 1.0 Current Medications Acetaminophen (Tylenol) 650 mg PO Q6H PRN PRN PRN Reason: Pain Score 1-10/Temp > 100.7 F Last Admin: 03/21/20 06:08 Dose: 650 mg Documented by: Albuterol Sulfate (Ventolin Aerosols) 2.5 mg INHALATION Q2H PRN PRN PRN Reason: SOB/Wheezing Albuterol/Ipratropium (Duoneb) 3 ml INHALATION Q6H.RT [facility] Amitriptyline HCl (Elavil) 20 mg PO QHS [facility] Last Admin: 03/20/20 21:16 Dose: 20 mg Documented by: Aspirin (Ecotrin) 81 mg PO DAILY@0800 [facility] Last Admin: 03/21/20 06:03 Dose: 81 mg Documented by: Duloxetine HCl (Cymbalta) 60 mg PO DAILY [facility] Last Admin: 03/21/20 11:38 Dose: 60 mg Documented by: Enoxaparin Sodium (Lovenox) 40 mg SC DAILY [facility] Guaifenesin (Robitussin) 20 ml PO Q4H PRN PRN PRN Reason: COUGH Guaifenesin (Mucinex) 1,200 mg PO BID [facility] Last Admin: 03/21/20 11:42 Dose: 1,200 mg Documented by: Ceftriaxone Sodium 2 gm/ (Sodium Chloride) 50 mls @ 100 mls/hr IV Q24 [facility] Stop: 03/28/20 10:01 Last Infusion: 03/21/20 09:34 Dose: Infused Documented by: Azithromycin 500 mg/ Dextrose 255 mls @ 250 mls/hr IV Q24 [facility] Stop: 03/26/20 10:01 Last Admin: 03/21/20 11:38 Dose: 250 mls/hr Documented by: Insulin Human Lispro (Humalog Kwikpen (Bkc)) 0 unit SC [facility]; Protocol Last Admin: 03/21/20 11:44 Dose: Not Given Documented by: Levothyroxine Sodium (Synthroid) 100 mcg PO DAILY@0600 [facility] Last Admin: 03/21/20 06:03 Dose: 100 mcg Documented by: Metoprolol Succinate (Toprol Xl (Beta Mustapha)) 100 mg PO DAILY [facility] Last Admin: 03/21/20 11:38 Dose: 100 mg Documented by: Nitroglycerin (Nitrostat) 0.4 mg SUBLINGUAL Q5M PRN PRN Reason: CARDIAC/CHEST PAIN Last Admin: 03/20/20 23:10 Dose: 1 tablet Documented by: Pantoprazole Sodium (Protonix) 40 mg PO DAILY [facility] Last Admin: 03/21/20 11:38 Dose: 40 mg Documented by: Pravastatin Sodium (Pravachol) 20 mg PO QHS [facility] Last Admin: 03/20/20 21:16 Dose: 20 mg Documented by: Sodium Chloride () 10 - 40 ml IV UD PRN PRN Reason: SALINE FLUSH Last Admin: 03/21/20 09:33 Dose: 10 ml Documented by: Medical Necessity - Tobacco Use Smoking Status: Former smoker Tobacco Use: Non-smoker, Secondhand, Cigarettes Assessment/Plan All Active Problems (Last Reviewed 11/12/19 @ 10:42 by Bruna Armenta) Abnormal EKG (Resolved) Angina pectoris (Acute) 1. Chest pain, atypical-initial troponin negative. EKG without ST-T changes. Heart cath in 2014 showed normal coronary arteries. Patient underwent nuclear stress test this morning, results pending. Continue aspirin. 2. Acute hypoxic respiratory insufficiency secondary to left lower lobe community-acquired pneumonia-patient developed shortness of breath and cough overnight. CTA obtained which was negative for PE. Left lower lobe infiltrate. Placed on IV Rocephin and IV azithromycin. Albuterol and DuoNeb aerosols. Sputum culture ordered. Respiratory panel negative. Continue supplement oxygen to maintain O2 at or above 90%. Wean as tolerated. 3. PACs/PVCs/ectopic atrial tachycardia- follows with Dr. Rodríguez. Denies recent palpitations. Continue metoprolol. 4. Mitral valve prolapse/tricuspid valve regurgitation-mild per echo November 2018. 5. Hyperlipidemia-continue statin. 6. Type 2 diabetes mellitus-hold oral regimen. Accu-Cheks with sliding scale insulin. 7. Anxiety/depression-continue duloxetine, amitriptyline. 8. Hypothyroidism-continue Synthroid regimen. DVT prophylaxis-Lovenox subcu This patient was seen by ARMANI Finney under the supervision of Dr. Fonseca. <Matthew Fonseca - Last Filed: 03/21/20 12:37> Subjective: History was taken from the patient. She has history of early emphysema and has appointment with Dr. Michelle. She has shortness of breath on exertion, MCCABE for about 10 days. She also has chronic cough and sometimes bring phlegm but there is no change in last 2 weeks. She felt mild chest pain/tightness from right to left chest across but she is not specific to the characteristic of pain will sometimes sharp and sometimes pressure. She had 4 troponins negative. 3 EKGs did not show any ischemic changes. She does not have history of ME or coronary artery disease. She has history of smoking started in teenage and quit about 30 years ago. Therefore probably 25 to 30 pack years of smoking cigarettes Physical exam General: Alert, Oriented x3, Cooperative HEENT: Atraumatic, PERRLA, EOMI, Normocephalic Oral: No Gingival or Mucosal Lesions/ Ulcerations Neck: Supple, No JVD, Negative Carotid Bruits Lungs: Air entry diminished in posterior half of left chest. No crepitation/rhonchi. Currently on 4 L of oxygen. No tachypnea. Cardiovascular: Regular rate, Regular Rhythm, Normal S1, Normal S2, No murmurs. Sinus rhythm on cardiac nurse specialist Abdomen: Bowel Sounds Present, Soft, Non Tender, Non-Distended : No renal angle tenderness. No suprapubic tenderness. Extremities: No edema, Capillary Refill Less than 3 Seconds Skin: No rashes, No breakdown Musculoskeletal: No Tenderness to Palpation of Joints or Extremities Neurological: Cranial nerves II-XII grossly intact, Deep Tendon Reflexes 2+/4 and Symmetrical, Neuro grossly intact Psych/Mental Status: Normal Affect, Appropriate. - Physical Exam Vitals/I&O's: Vital Signs Temp Pulse Resp BP Pulse Ox 98.8 F 100 20 H 122/60 H 97 03/21/20 11:45 03/21/20 11:45 03/21/20 11:45 03/21/20 11:45 03/21/20 11:45 Oxygen Flow Rate (L/min) 4 Oxygen Delivery Method Nasal Cannula Weight: 206 lb Body Mass Index (BMI) 33.2 Intake and Output for Last 24 Hours 03/19/20 03/20/20 03/21/20 23:59 23:59 23:59 Intake Total 1140 / 1140 305 / 305 Balance 1140 / 1140 305 / 305 Microbiology Past 72 Hours 03/21/20 08:34 Interface Orders Respiratory Panel (PCR) - Final 03/21/20 09:53 Urine, Clean Catch Legionella Antigen - Final 03/21/20 09:53 Urine, Clean Catch Streptococcus pneumoniae Antigen (M - Final Laboratory Results 03/20/20 15:30: WBC 12.9 H, RBC 5.11, Hgb 12.9, Hct 43.5, MCV 85.1, MCH 25.2 L, MCHC 29.7 L, RDW Std Deviation 42.2, RDW Coeff of Fernie 13.5, Plt Count 232, MPV 11.0, Immature Gran % (Auto) 0.400, Neut % (Auto) 75.7 H, Lymph % (Auto) 13.8 L, [place] % (Auto) 8.1, Eos % (Auto) 1.3, Baso % (Auto) 0.7, Absolute Neuts (auto) 9.8 H, Absolute Lymphs (auto) 1.78, Nucleated RBC % 0 03/20/20 15:30: D-Dimer Quant (PE/DVT) 0.61 H* 03/20/20 15:30: Sodium 140, Potassium 3.9, Chloride 102, Carbon Dioxide 33.0 H, Anion Gap 5, BUN 8, Creatinine 0.78, Estim Creat Clear Calc 46.90, Est GFR (MDRD) Af Amer 94, Est GFR (MDRD) Non-Af 77, BUN/Creatinine Ratio 10.3, Glucose 80, Calcium 9.0, Troponin I < 0.015 03/20/20 18:57: Troponin I < 0.015 03/20/20 21:15: POC Glucose 148 H 03/20/20 21:38: Troponin I < 0.015 03/21/20 00:23: Troponin I < 0.015 03/21/20 04:55: WBC 14.1 H, RBC 4.76, Hgb 12.1, Hct 41.0, MCV 86.1, MCH 25.4 L, MCHC 29.5 L, RDW Std Deviation 43.6, RDW Coeff of Fernie 13.7, Plt Count 182, MPV 10.1, Immature Gran % (Auto) 0.600, Neut % (Auto) 83.1 H, Lymph % (Auto) 6.5 L, [place] % (Auto) 9.0, Eos % (Auto) 0.4, Baso % (Auto) 0.4, Absolute Neuts (auto) 11.7 H, Absolute Lymphs (auto) 0.92, Nucleated RBC % 0 03/21/20 04:55: B-Natriuretic Peptide 161.4 H 03/21/20 07:01: POC Glucose 158 H 03/21/20 08:30: MRSA (PCR) Negative 03/21/20 08:35: Lactic Acid 1.0 03/21/20 11:44: POC Glucose 126 H Current Medications Acetaminophen (Tylenol) 650 mg PO Q6H PRN PRN PRN Reason: Pain Score 1-10/Temp > 100.7 F Last Admin: 03/21/20 06:08 Dose: 650 mg Documented by: Albuterol Sulfate (Ventolin Aerosols) 2.5 mg INHALATION Q2H PRN PRN PRN Reason: SOB/Wheezing Albuterol/Ipratropium (Duoneb) 3 ml INHALATION Q6H.RT [facility] Amitriptyline HCl (Elavil) 20 mg PO QHS [facility] Last Admin: 03/20/20 21:16 Dose: 20 mg Documented by: Aspirin (Ecotrin) 81 mg PO DAILY@0800 [facility] Last Admin: 03/21/20 06:03 Dose: 81 mg Documented by: Duloxetine HCl (Cymbalta) 60 mg PO DAILY [facility] Last Admin: 03/21/20 11:38 Dose: 60 mg Documented by: Enoxaparin Sodium (Lovenox) 40 mg SC DAILY [facility] Guaifenesin (Robitussin) 20 ml PO Q4H PRN PRN PRN Reason: COUGH Guaifenesin (Mucinex) 1,200 mg PO BID [facility] Last Admin: 03/21/20 11:42 Dose: 1,200 mg Documented by: Ceftriaxone Sodium 2 gm/ (Sodium Chloride) 50 mls @ 100 mls/hr IV Q24 [facility] Stop: 03/28/20 10:01 Last Infusion: 03/21/20 09:34 Dose: Infused Documented by: Azithromycin 500 mg/ Dextrose 255 mls @ 250 mls/hr IV Q24 [facility] Stop: 03/26/20 10:01 Last Admin: 03/21/20 11:38 Dose: 250 mls/hr Documented by: Insulin Human Lispro (Humalog Kwikpen (Bkc)) 0 unit SC [facility]; Protocol Last Admin: 03/21/20 11:44 Dose: Not Given Documented by: Levothyroxine Sodium (Synthroid) 100 mcg PO DAILY@0600 [facility] Last Admin: 03/21/20 06:03 Dose: 100 mcg Documented by: Metoprolol Succinate (Toprol Xl (Beta Mustapha)) 100 mg PO DAILY [facility] Last Admin: 03/21/20 11:38 Dose: 100 mg Documented by: Nitroglycerin (Nitrostat) 0.4 mg SUBLINGUAL Q5M PRN PRN Reason: CARDIAC/CHEST PAIN Last Admin: 03/20/20 23:10 Dose: 1 tablet Documented by: Pantoprazole Sodium (Protonix) 40 mg PO DAILY [facility] Last Admin: 03/21/20 11:38 Dose: 40 mg Documented by: Pravastatin Sodium (Pravachol) 20 mg PO QHS [facility] Last Admin: 03/20/20 21:16 Dose: 20 mg Documented by: Sodium Chloride () 10 - 40 ml IV UD PRN PRN Reason: SALINE FLUSH Last Admin: 03/21/20 09:33 Dose: 10 ml Documented by: Assessment/Plan This patient was seen in conjunction with Valerie ADDISON. I have independently interviewed and examined the patient and reviewed pertinent history, examination findings, laboratory and plan of management. I have reviewed the note and ag ree with the documented findings with the few additional points. In brief, patient is admitted for atypical chest pain it seems more pleuritic probably from pneumonia/pleuritis. Serial troponin and EKG are negative. Stress test as scheduled. BNP slightly elevated 161.4. Lasix 40 mg IV 1 dose ordered if BP permits more than 120 systolic. Patient recently had echo in November 2018 reported as EF 65% with normal LV systolic function. LA mildly enlarged. Mild MR, mild TR mild [place]. RVSP 37 mmHg. Patient also empirically started on IV Rocephin and Zithromax for left lower lobe consolidation/opacity. She has emphysema therefore COPD exacerbation as she is short of breath and hypoxic. On bronchodilator, IV Solu-Medrol, incentive spirometry and Mucinex. She has PVCs and PACs on cardiac nurse specialist. Diabetes mellitus type 2: On Accu-Cheks as mentioned above. Other comorbidities as mentioned above I have discussed my assessment with Valerie ADDISON and orders have been reviewed. Inpatient E&M: 34049 Subs Hosp L2
[2020-03-21 12:11] LABS: Bedside Glucose 126 mg/dL (70-110)
--- NOTE | 2020-03-21 12:48 | STRESSREP_ITS ---
Stress Test Report Date: 03-21-2020 Procedure: Pharmacologic stress nuclear imaging study Indications: Chest pain; cardiac dysrhythmia; mitral valve prolapse Consent: Per the patient Procedure: The patient underwent pharmacologic (Regadenoson) evaluation with a peak heart rate of 126 beats per minute (85%predicted maximal heart rate) and a peak blood pressure of 112/66 mmHg. The baseline ECG demonstrated sinus rhythm; nonspecific ST/T wave abnormality. The peak pharmacologic ECG demonstrated continued nonspecific ST/T wave abnormality. There was a 5 beat narrow complex tachycardia in recovery appearing compatible with an ectopic atrial rhythm/tachycardia. There was no complaint of chest discomfort during pharmacologic infusion or recovery. The examination was discontinued secondary to completion of protocol. Impression: 1. Pharmacologic (Regadenoson) evaluation 2. Peak pharmacologic ECG with continued nonspecific ST/T wave abnormality. 3. There were no cardiac dysrhythmias pretest, during pharmacologic infusion, or recovery. 4. Nuclear images pending Myocardial perfusion imaging study: Technique: The patient was injected with 13.7 millicuries of technetium 99m Cardiolite and subsequently rest SPECT Cardiolite nuclear imaging was obtained in the horizontal long, vertical long, and short axis views. The patient underwent pharmacologic (Regadenoson) evaluation with a peak heart rate of 126 beats per minute (85% percent predicted maximal heart rate) and a peak blood pressure of 112/66 mmHg. The patient was injected with 42.4 millicuries of technetium 99m Cardiolite and subsequently stress SPECT Cardiolite nuclear imaging was obtained in the horizontal long, vertical long, and short axis views. A gated Cardiolite study at peak stress was obtained. Interpretation: Rest and stress SPECT Cardiolite nuclear imaging status post realignment, normalization, and attenuation correction demonstrate relative uniform tracer uptake and myocardial perfusion appearing within normal limits. There is end systolic thickening and brightening. The gated Cardiolite study demonstrates myocardial thickening and inward wall motion. The reported LVEF is 55%. Impression: 1. Rest and stress SPECT Cardiolite nuclear imaging demonstrate relative uniform tracer uptake and myocardial perfusion appearing within normal limits. 2. The gated Cardiolite study reports an LVEF of 55%. This note was generated with [employer] software. It may contain incorrect words, spelling, and punctuation that were not noted in checking the note before signing.
[2020-03-21] MEDS: Ipratropium/Albuterol Sulfate 3 ML AMPUL.NEB INHALATION ×2 (13:22→20:06)
[2020-03-21] MEDS: Enoxaparin 40 MG/0.4 ML Syringe SC (13:23)
--- NOTE | 2020-03-21 15:20 | CASEMGMT ---
RN CM Assessment Note Introduced role of CM to patient in room. She is awake, alert and able to participate in assessment. The patient states she is independent, has no care needs. She lives with her daughter Faith and plans to return on discharge. Presentation: presented with shortness of breath. Diagnosis: chest pain, COPD PCP: Dr. Lang Specialists: none Insurance: [facility]erred [facility]acy: [facility] Pres[facility] Benefit: yes LNOK: Daefe and son. Hedy Ojeda is listed as next of kin. Living Arrangements: Lives in one story home with her daughter, Faith. States she has no care needs and is independent in ADL's. Patient drives and can do own shopping, cooking. Tranportation: drives DME: cane, does not use. May need Home Oxygen. Explained procedure for testing prior to dc. List of area DME suppliers reviewed with patient and she prefers [employer]. Green sheet is on chart for weekend discharge. HHC: no Patient DC Goals: Home DC Plan: Home. Patient may need home oxygen on dc. . CM available for discharge planning coordination. Contact CM for any concerns/needs that may arise. Andrew SHEIKH RN ACM
[2020-03-21 16:40] LABS: Bedside Glucose 169 mg/dL (70-110)
[2020-03-21] MEDS: Amitriptyline 10 MG Tablet 20 MG PO (21:56)
[2020-03-21] MEDS: Insulin Lispro 100 UNIT/ML INSULN.PEN SC (21:57)
[2020-03-21] MEDS: Pravastatin 20 MG Tablet PO (21:57)
[2020-03-21 22:16] LABS: Bedside Glucose 208 mg/dL (70-110)
[2020-03-22] VITALS (9 sets, daily range): BP systolic 114–116; BP diastolic 55–60; PULSE 70–83; RESP 18; TEMP 36.7–36.8; O2SAT 84–96
[2020-03-22] MEDS: Levothyroxine 100 MCG Tablet PO (06:26)
[2020-03-22] MEDS: Insulin Lispro 100 UNIT/ML INSULN.PEN SC ×2 (06:30→11:42)
[2020-03-22 06:40] LABS: Bedside Glucose 161 mg/dL (70-110)
[2020-03-22] MEDS: Ipratropium/Albuterol Sulfate 3 ML AMPUL.NEB INHALATION (07:02)
[2020-03-22 07:43] LABS: Absolute Lymphocyte Count 0.91 X10^3/uL (0.83-4.51); Absolute Neutrophil Count 12.1 X10^3/uL (2.0-7.7); Basophil# 0.02 X10^3/uL; Basophil% 0.1 % (0-1); Hematocrit 39.3 % (37-47); Hemoglobin 11.8 g/dL (12.0-15.0); Lymphocyte # 0.91 X10^3/ul (4.0); Lymphocyte % 6.5 % (19-41); Mean Corpuscular Volume 86.6 fL (81-99); Monocyte# 0.72 X10^3/uL; Monocyte% 5.2 % (0-10); NRBC Flagged by Analyzer 0 % (0-5); Neutrophil # 12.13 X10^3/uL (2.7-7.7); Neutrophil % 87.2 % (47-70); Platelet Count 193 K/mm3 (150-450); RBC Distribution Width CV 13.9 % (11.6-14.6); RBC Distribution Width SD 43.8 fl (35.1-43.9); Red Blood Count 4.54 M/mm3 (4.2-5.4); White Blood Count 13.9 K/mm3 (4.4-11.0)
[2020-03-22] MEDS: Aspirin E.C. 81 MG Tablet PO (07:48)
[2020-03-22 08:01] LABS: Anion Gap 3 (5-15); BUN 12 mg/dL (7-18); BUN/Creat Ratio 16.7 RATIO (10-20); Calcium,Total 8.8 mg/dL (8.5-10.1); Chloride 100 mmol/L (98-107); Creatinine, Serum 0.72 mg/dL (0.55-1.02); EST Glomerular Filtration Rate 84 mL/min (>60); Est Glom Filt Rate - Afr Amer 102 mL/min (>60); Glucose 167 mg/dL (74-106); Magnesium 2.2 mg/dL (1.6-2.6); Potassium 3.8 mmol/L (3.5-5.1); Sodium Level 136 mmol/L (136-145)
[2020-03-22] MEDS: guaiFENesin 1,200 MG Tablet 1200 MG PO (09:02)
[2020-03-22] MEDS: Pantoprazole Sodium 40 MG Tablet PO (09:02)
[2020-03-22] MEDS: Metoprolol(XL)Succ 100 MG Tablet PO (09:02)
[2020-03-22] MEDS: DULoxetine Hcl 60 MG Capsule PO (09:02)
[2020-03-22] MEDS: 0.9% Saline Lock 10 ML Syringe IV (09:05)
[2020-03-22] MEDS: Enoxaparin 40 MG/0.4 ML Syringe SC (09:08)
--- NOTE | 2020-03-22 10:34 | DCINST_ITS ---
You will use the following diet at home:: Calorie/Carbohydrate Controlled (specify 1200, 1400, etc) Discharge Activity: Return to Normal Activity Call your doctor if you observe: Shortness of breath, Dizziness, Fainting spells, Chest pain Allergies/Adverse Reactions: Allergies cyclobenzaprine Allergy (Verified 03/20/20 15:26) Unknown diclofenac Allergy (Verified 03/20/20 15:26) Unknown trifluoperazine Allergy (Verified 03/20/20 15:26) Unknown Medications to take at Discharge Duloxetine Hcl [Cymbalta] 60 mg PO DAILY 02/17/15 Ergocalciferol [Vitamin D] 50,000 unit PO WE 02/17/15 Esomeprazole Mag Trihydrate [Nexium] 40 mg PO DAILY 02/17/15 Metoprolol(XL)Succ [Toprol Xl (Beta Mustapha)] 100 mg PO DAILY 02/17/15 Pravastatin [Pravachol] 20 mg PO QHS 02/17/15 albuterol sulfate 90 mcg/actuation aerosol inhaler 2 puff INHALATION Q4H PRN g 11/12/19 amitriptyline 10 mg tablet 20 mg PO QHS tab 11/12/19 metformin 500 mg tablet 500 mg PO TIDCM tab 11/12/19 Levothyroxine [Synthroid] 100 mcg PO DAILY 03/20/20 Multivitamin 1 tab PO DAILY 03/20/20 Amox/Clavulanate Tablet [Augmentin Tablet] 875 mg PO Q12H #14 tab 03/22/20 Prednisone See Taper PO DAILY #30 tab 03/22/20 The following prescriptions were given: Amox/Clavulanate Tablet [Augmentin Tablet] 875 mg PO Q12H #14 tab Transmission Status: Pending to [id number] Prednisone See Taper PO DAILY #30 tab Transmission Status: Pending to [id number] Primary Care Physician: Lisa Lang DO [Primary Care Provider] - Please follow up with your Primary Care Physician in: 1 Week Test Results: Test results from this visit will be discussed in further detail at your follow- up appointment, if applicable. Please Follow Up With: Giancarlo Rodríguez MD When: As scheduled 04/16/2020 Please Follow Up With: Sravan Velasco DO - Pulmonary medicine When: 2 Weeks, follow up previous PFTs Proposed Discharge Date: 03/22/20
--- NOTE | 2020-03-22 10:40 | DS.PCM_ITS ---
<Valerie Ruiz [employer] - Last Filed: 03/22/20 10:49> Discharge Date and Diagnosis Date of Admission: 03/20/20 Date of Discharge: 03/22/20 - Primary Discharge Diagnosis Acute Problems: 1. Acute hypoxic respiratory insufficiency secondary to left lower lobe co mmunity-acquired pneumonia and probable exacerbation of COPD 2. Chest pain, atypical-ACS ruled out. Secondary to #1. 3. PACs/PVCs/ectopic atrial tachycardia 4. Mitral valve prolapse/tricuspid valve regurgitation 5. Hyperlipidemia 6. Type 2 diabetes mellitus 7. Anxiety/depression 8. Hypothyroidism - Secondary Discharge Diagnosis Chronic Problems: Chronic Problems (Last Reviewed 11/12/19 @ 10:42 by Bruna Armenta) Ectopic atrial tachycardia (Chronic) Premature ventricular contraction (Chronic) Premature atrial contraction (Chronic) Pure hypercholesterolemia (Chronic) Nonrheumatic mitral (valve) prolapse (Chronic) Nonrheumatic tricuspid valve disorder (Chronic) Paroxysmal SVT (supraventricular tachycardia) (Chronic) Right carotid bruit (Chronic) Hospital Course and Treatment Imaging Results: Diagnostic Data Chest X-Ray 03/20/20 15:55 IMPRESSION: No acute cardiopulmonary pathology Electronically Signed: Tucker Ojeda MD at 16:14 EDT , Service support , Chest CTA 03/21/20 06:30 IMPRESSION: 1. No pulmonary embolus detected. 2. Small left pleural effusion with associated left lower lobe atelectasis versus infiltrate. 3. Additional findings above. Individualized dose optimization techniques were used for this CT. at 0707 Reported and signed by: Ifeoma Ramsey MD Electronically Signed: Ifeoma Ramsey MD at 7:07 EDT Tel , Service support , Operations: None Procedures: Stress test Summary of Care Provided: The patient is a 74 year old F admitted 03/20/2020 due to chest tightness, shortness of breath and cough. 1. Acute hypoxic respiratory insufficiency secondary to left lower lobe community-acquired pneumonia and probable exacerbation of COPD- CTA obtained which was negative for PE. Left lower lobe infiltrate. Placed on IV Rocephin and IV azithromycin during admission. Augmentin at discharge to complete course. Sputum culture growing 4+ gram-positive cocci, 2+ WBC. Final pending. Respiratory panel negative. Prednisone taper at discharge. Ambulatory pulse ox completed and patient O2 84% on room air. Patient will need to continue 2 L nasal cannula continuous supplemental oxygen. She is ambulatory in the home. Patient had PFTs in 2017 which showed mild restrictive ventilatory defect with associated moderate reduction in diffusing capacity. Patient states she was told she has mild emphysema. She has not since followed up with pulmonary medicine. Follow-up with pulmonary medicine in 2 weeks. 2. Chest pain, atypical-ACS ruled out. Chest tightness secondary to #1. EKG without ST-T changes. Heart cath in 2014 showed normal coronary arteries. Patient underwent nuclear stress test which was negative for ischemia. LVEF 55%. 3. PACs/PVCs/ectopic atrial tachycardia- follows with Dr. Rodríguez. Denies recent palpitations. Continue metoprolol. 4. Mitral valve prolapse/tricuspid valve regurgitation-mild per echo November 2018. 5. Hyperlipidemia-continue statin. 6. Type 2 diabetes mellitus-continue home oral regimen. 7. Anxiety/depression-continue duloxetine, amitriptyline. 8. Hypothyroidism-continue Synthroid regimen. General: Alert, Oriented x3, Cooperative HEENT: Atraumatic, PERRLA, EOMI, Normocephalic Neck: Supple, No JVD, Negative Carotid Bruits Lungs: Diminished, clear to auscultation Cardiovascular: Regular rate, No murmurs Abdomen: Bowel Sounds Present, Soft, Non Tender, Non-Distended Extremities: No clubbing, No cyanosis, No edema, Capillary Refill Less than 3 Seconds Skin: No rashes, No breakdown Musculoskeletal: No Tenderness to Palpation of Joints or Extremities Neurological: Cranial nerves II-XII grossly intact, Neuro grossly intact Psych/Mental Status: Normal Affect, Appropriate Patient seen and examined prior to discharge. Physical assessment as noted above. Patient is stable for discharge with follow up recommendations as noted above. This patient was seen by ARMANI Finney under the supervision of Dr. Fonseca. - Physical Exam Vitals/I&O's: Vital Signs Temp Pulse Resp BP Pulse Ox 98.1 F 78 18 116/55 L 84 03/22/20 09:00 03/22/20 09:02 03/22/20 09:00 03/22/20 09:02 03/22/20 09:10 Oxygen Flow Rate (L/min) [ 1 AMBULATING on Room Air] Oxygen Flow Rate (L/min) [ 2 AMBULATION with Oxygen] Oxygen Flow Rate (L/min) 2 Oxygen Delivery Method Nasal Cannula Weight: 206 lb Body Mass Index (BMI) 33.2 Intake and Output for Last 24 Hours 03/20/20 03/21/20 03/22/20 23:59 23:59 23:59 Intake Total 1140 / 1140 1040 / 1280 480 / 480 Balance 1140 / 1140 1040 / 1280 480 / 480 Microbiology Past 72 Hours 03/21/20 11:50 Sputum, Expectorated/Coughed Gram Stain - Final 03/21/20 08:34 Interface Orders Respiratory Panel (PCR) - Final 03/21/20 09:53 Urine, Clean Catch Legionella Antigen - Final 03/21/20 09:53 Urine, Clean Catch Streptococcus pneumoniae Antigen (M - Final Laboratory Results 03/21/20 11:44: POC Glucose 126 H 03/21/20 16:32: POC Glucose 169 H 03/21/20 21:53: POC Glucose 208 H 03/22/20 06:20: Sodium 136, Potassium 3.8, Chloride 100, Carbon Dioxide 33.0 H, Anion Gap 3 L, BUN 12, Creatinine 0.72, Estim Creat Clear Calc 46.90, Est GFR (MDRD) Af Amer 102, Est GFR (MDRD) Non-Af 84, BUN/Creatinine Ratio 16.7, Glucose 167 H, Calcium 8.8, Magnesium 2.2 03/22/20 06:29: POC Glucose 161 H 03/22/20 06:35: WBC 13.9 H, RBC 4.54, Hgb 11.8 L, Hct 39.3, MCV 86.6, MCH 26.0 L , MCHC 30.0 L, RDW Std Deviation 43.8, RDW Coeff of Fernie 13.9, Plt Count 193, MPV 11.0, Immature Gran % (Auto) 1.000 H, Neut % (Auto) 87.2 H, Lymph % (Auto) 6.5 L , [facility] % (Auto) 5.2, Eos % (Auto) 0.0, Baso % (Auto) 0.1, Absolute Neuts (auto) 12.1 H, Absolute Lymphs (auto) 0.91, Nucleated RBC % 0 Current Medications Acetaminophen (Tylenol) 650 mg PO Q6H PRN PRN PRN Reason: Pain Score 1-10/Temp > 100.7 F Last Admin: 03/21/20 16:38 Dose: 650 mg Documented by: Albuterol Sulfate (Ventolin Aerosols) 2.5 mg INHALATION Q2H PRN PRN PRN Reason: SOB/Wheezing Albuterol/Ipratropium (Duoneb) 3 ml INHALATION Q6H.RT [facility] Last Admin: 03/22/20 07:02 Dose: 3 ml Documented by: Amitriptyline HCl (Elavil) 20 mg PO QHS [facility] Last Admin: 03/21/20 21:56 Dose: 20 mg Documented by: Aspirin (Ecotrin) 81 mg PO DAILY@0800 [facility] Last Admin: 03/22/20 07:48 Dose: 81 mg Documented by: Duloxetine HCl (Cymbalta) 60 mg PO DAILY [facility] Last Admin: 03/22/20 09:02 Dose: 60 mg Documented by: Enoxaparin Sodium (Lovenox) 40 mg SC DAILY [facility] Last Admin: 03/22/20 09:08 Dose: 40 mg Documented by: Guaifenesin (Mucinex) 1,200 mg PO BID [facility] Last Admin: 03/22/20 09:02 Dose: 1,200 mg Documented by: Ceftriaxone Sodium 2 gm/ (Sodium Chloride) 50 mls @ 100 mls/hr IV Q24 [facility] Stop: 03/28/20 10:01 Last Infusion: 03/21/20 09:34 Dose: Infused Documented by: Azithromycin 500 mg/ Dextrose 255 mls @ 250 mls/hr IV Q24 [facility] Stop: 03/26/20 10:01 Last Infusion: 03/21/20 13:27 Dose: Infused Documented by: Insulin Human Lispro (Humalog Kwikpen (Bkc)) 0 unit SC [facility]; Protocol Last Admin: 03/22/20 06:30 Dose: 1 units Documented by: Levothyroxine Sodium (Synthroid) 100 mcg PO DAILY@0600 [facility] Last Admin: 03/22/20 06:26 Dose: 100 mcg Documented by: Methylprednisolone (Solu-Medrol) 40 mg IV Q12 [facility] Last Admin: 03/22/20 09:05 Dose: 40 mg Documented by: Metoprolol Succinate (Toprol Xl (Beta Mustapha)) 100 mg PO DAILY [facility] Last Admin: 03/22/20 09:02 Dose: 100 mg Documented by: Nitroglycerin (Nitrostat) 0.4 mg SUBLINGUAL Q5M PRN PRN Reason: CARDIAC/CHEST PAIN Last Admin: 03/20/20 23:10 Dose: 1 tablet Documented by: Pantoprazole Sodium (Protonix) 40 mg PO DAILY [facility] Last Admin: 03/22/20 09:02 Dose: 40 mg Documented by: Pravastatin Sodium (Pravachol) 20 mg PO QHS [facility] Last Admin: 03/21/20 21:57 Dose: 20 mg Documented by: Sodium Chloride () 10 - 40 ml IV UD PRN PRN Reason: SALINE FLUSH Last Admin: 03/22/20 09:05 Dose: 10 ml Documented by: Discharge Diet: No Restrictions Discharge Activity: Return to Normal Activity Call your doctor if you observe: Shortness of breath, Dizziness, Fainting spells, Chest pain Home Medications: Medications to take at Discharge Duloxetine Hcl [Cymbalta] 60 mg PO DAILY 02/17/15 Ergocalciferol [Vitamin D] 50,000 unit PO WE 02/17/15 Esomeprazole Mag Trihydrate [Nexium] 40 mg PO DAILY 02/17/15 Metoprolol(XL)Succ [Toprol Xl (Beta Mustapha)] 100 mg PO DAILY 02/17/15 Pravastatin [Pravachol] 20 mg PO QHS 02/17/15 albuterol sulfate 90 mcg/actuation aerosol inhaler 2 puff INHALATION Q4H PRN g 11/12/19 amitriptyline 10 mg tablet 20 mg PO QHS tab 11/12/19 metformin 500 mg tablet 500 mg PO TIDCM tab 11/12/19 Levothyroxine [Synthroid] 100 mcg PO DAILY 03/20/20 Multivitamin 1 tab PO DAILY 03/20/20 Amox/Clavulanate Tablet [Augmentin Tablet] 875 mg PO Q12H #14 tab 03/22/20 Prednisone See Taper PO DAILY #30 tab 03/22/20 Following Prescriptions Were Given to Patient: Amox/Clavulanate Tablet [Augmentin Tablet] 875 mg PO Q12H #14 tab Transmission Status: Received by [facility] Prednisone See Taper PO DAILY #30 tab Transmission Status: Received by [facility] Primary Care Physician: Lisa Lang DO [Primary Care Provider] - Please follow up with your Primary Care Physician in: 1 Week Please Follow Up With: Giancarlo Rodríguez MD When: As scheduled 04/16/2020 Please Follow Up With: Sravan Velasco DO - Pulmonary medicine When: 2 Weeks, follow up previous PFTs Disposition: Home Minutes spent on discharge:: 35 Patient Condition:: Stable Medical Necessity - Tobacco Use Smoking Status: Former smoker Tobacco Use: Non-smoker, Secondhand, Cigarettes Meaningful Use Info Meaningful Use Diagnoses (Choose all that apply): None applicable <Matthew Fonseca - Last Filed: 03/22/20 13:56> Discharge Date and Diagnosis - Secondary Discharge Diagnosis Chronic Problems: Chronic Problems (Last Reviewed 11/12/19 @ 10:42 by Bruna Armenta) Ectopic atrial tachycardia (Chronic) Premature ventricular contraction (Chronic) Premature atrial contraction (Chronic) Pure hypercholesterolemia (Chronic) Nonrheumatic mitral (valve) prolapse (Chronic) Nonrheumatic tricuspid valve disorder (Chronic) Paroxysmal SVT (supraventricular tachycardia) (Chronic) Right carotid bruit (Chronic) Hospital Course and Treatment Summary of Care Provided: [facility] conjunction with [employer], Valerie. I have independently interviewed and examined the patient and reviewed pertinent history, examination findings, laboratory and plan of management. I have reviewed the note and agree with the documented findings with the few additional points. In brief, patient is admitted for atypical chest pain it seems more pleuritic probably from pneumonia/pleuritis. Serial troponin and EKG are negative. Stress test as scheduled. BNP slightly elevated 161. Lasix 40 mg IV 1 dose was given. Patient recently had echo in November 2018 reported as EF 65% with normal LV systolic function. LA mildly enlarged. Mild MR, mild TR mild NV. RVSP 37 mmHg. Patient had nuclear stress test which were negative for ischemia. Patient also empirically started on IV Rocephin and Zithromax for left lower lobe consolidation/opacity. She has COPD exacerbation as she is short of breath and hypoxic. On bronchodilator, IV Solu-Medrol, incentive spirometry and Mucinex. Patient is discharged on Augmentin, prednisone taper and Mucinex. 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 Diabetes mellitus type 2: On Accu-Cheks as mentioned above. Other comorbidities as mentioned above Discharge medication reconciliation done. Discharge follow-up instructions completed. Discharge process discussed with the patient and all questions were answered to patient's satisfaction. Total time spent, exact 35 minutes on discharge meds reconciliation, examination, coordination of care with nurses and ancillary staff, review of imaging and blood test and discussion with the patient on follow-up instructions I have discussed my assessment with [employer] and orders have been reviewed.[] - Physical Exam Vitals/I&O's: Vital Signs Temp Pulse Resp BP Pulse Ox 98.1 F 78 18 116/55 L 96 03/22/20 11:14 03/22/20 11:14 03/22/20 11:14 03/22/20 11:14 03/22/20 11:14 Oxygen Flow Rate (L/min) [ 1 AMBULATING on Room Air] Oxygen Flow Rate (L/min) [ 2 AMBULATION with Oxygen] Oxygen Flow Rate (L/min) 2 Oxygen Delivery Method Nasal Cannula Weight: 206 lb Body Mass Index (BMI) 33.2 Intake and Output for Last 24 Hours 03/20/20 03/21/20 03/22/20 23:59 23:59 23:59 Intake Total 1140 / 1140 1040 / 1280 720 / 720 Balance 1140 / 1140 1040 / 1280 720 / 720 Microbiology Past 72 Hours 03/21/20 11:50 Sputum, Expectorated/Coughed Gram Stain - Final 03/21/20 08:34 Interface Orders Respiratory Panel (PCR) - Final 03/21/20 09:53 Urine, Clean Catch Legionella Antigen - Final 03/21/20 09:53 Urine, Clean Catch Streptococcus pneumoniae Antigen (M - Final Laboratory Results 03/21/20 16:32: POC Glucose 169 H 03/21/20 21:53: POC Glucose 208 H 03/22/20 06:20: Sodium 136, Potassium 3.8, Chloride 100, Carbon Dioxide 33.0 H, Anion Gap 3 L, BUN 12, Creatinine 0.72, Estim Creat Clear Calc 46.90, Est GFR (MDRD) Af Amer 102, Est GFR (MDRD) Non-Af 84, BUN/Creatinine Ratio 16.7, Glucose 167 H, Calcium 8.8, Magnesium 2.2 03/22/20 06:29: POC Glucose 161 H 03/22/20 06:35: WBC 13.9 H, RBC 4.54, Hgb 11.8 L, Hct 39.3, MCV 86.6, MCH 26.0 L , MCHC 30.0 L, RDW Std Deviation 43.8, RDW Coeff of Fernie 13.9, Plt Count 193, MPV 11.0, Immature Gran % (Auto) 1.000 H, Neut % (Auto) 87.2 H, Lymph % (Auto) 6.5 L , [facility] % (Auto) 5.2, Eos % (Auto) 0.0, Baso % (Auto) 0.1, Absolute Neuts (auto) 12.1 H, Absolute Lymphs (auto) 0.91, Nucleated RBC % 0 03/22/20 11:41: POC Glucose 190 H Inpatient E&M: 39969 Disch Hosp
--- NOTE | 2020-03-22 11:02 | NURSING ---
[employer] faxed oxygen prescription, oxygen testing, face to face, demographics, and insurance information.
[2020-03-22 11:55] LABS: Bedside Glucose 190 mg/dL (70-110)
== END 2020-03-22 12:52 | disposition home or self-care (01) | DRG 194 ==
LOC: ED 15:54 → PCU 17:13
PROVIDERS: Family Medicine; Nurse Practitioner Family; Admitting Provider Student in an Organized Health Care Education/Training Program; Emergency Provider Emergency Medicine; PCP Family Medicine; Visit Provider Internal Medicine
DX: J18.9 Pneumonia, unspecified organism (principal); J44.0 Chronic obstructive pulmonary disease with (acute) lower respiratory infection; I47.1 Supraventricular tachycardia; J44.1 Chronic obstructive pulmonary disease with (acute) exacerbation; R09.02 Hypoxemia; R06.89 Other abnormalities of breathing; I49.3 Ventricular premature depolarization; I08.1 Rheumatic disorders of both mitral and tricuspid valves; E78.5 Hyperlipidemia, unspecified; E11.9 Type 2 diabetes mellitus without complications; F32.9 Major depressive disorder, single episode, unspecified; F41.9 Anxiety disorder, unspecified; E03.9 Hypothyroidism, unspecified; K21.9 Gastro-esophageal reflux disease without esophagitis; Z79.84 Long term (current) use of oral hypoglycemic drugs; Z79.51 Long term (current) use of inhaled steroids; Z79.899 Other long term (current) drug therapy; Z87.891 Personal history of nicotine dependence
CPT/HCPCS: 36415; 71045; 71275; 78452; 80048; 82962; 83605; 83735; 83880; 84484; 85025; 85379; 87040; 87070; 87205; 87449; 87633; 87641; 93005; 93017; 94640; 99285; A9500; J7030; Q9967; A4216; J0696; J1940; J2405; J2785

== ENCOUNTER → 2020-04-02 | Outpatient (CLI) | payer MEDICARE, OTHER, SELFPAY ==
[2020-03-20 18:25] VITALS: BMI 33.2
== END | disposition home or self-care (01) ==
LOC: MTLAB 14:45
PROVIDERS: PCP Family Medicine; Referring Provider Internal Medicine Gastroenterology; Visit Provider Internal Medicine Gastroenterology
DX: R19.7 Diarrhea, unspecified (principal)
CPT/HCPCS: 87493

== ENCOUNTER → 2020-04-05 | Outpatient (CLI) | payer MEDICARE, OTHER, SELFPAY ==
[2020-03-20 18:25] VITALS: BMI 33.2
[2020-04-05 09:00] LABS: AST(SGOT) 18 U/L (15-37); Alanine Aminotransfer ALT/SGPT 42 U/L (13-56); Albumin, Serum 3.1 g/dL (3.2-5.0); Alkaline Phosphatase 83 U/L (45-117); Bilirubin, Direct 0.14 mg/dL (0.00-0.30); Cholesterol 168 mg/dL (200); Globulin 3.7 g/dL (2.2-4.2); High Density Lipoprotein 48 mg/dL; Protein, Total 6.8 g/dL (6.4-8.2); Triglycerides 194 mg/dL; Very Low Density Lipoprotein 39 mg/dL (5-40)
== END | disposition home or self-care (01) ==
LOC: LAB 08:06
PROVIDERS: PCP Family Medicine; Referring Provider Internal Medicine Cardiovascular Disease; Visit Provider Internal Medicine Cardiovascular Disease
DX: E78.00 Pure hypercholesterolemia, unspecified (principal)
CPT/HCPCS: 36415; 80061; 80076

== ENCOUNTER → 2020-08-05 12:26 | Outpatient (CLI) | payer MEDICARE, OTHER, SELFPAY ==
[2020-04-16 10:09] VITALS: BMI 33.5
--- NOTE | 2020-08-05 12:29 | BI_ITS ---
MAMMOGRAPHY - BILATERAL SCREENING REASON FOR EXAM: Female, 74 years old. Routine annual screening examination. PERTINENT HISTORY: Aunt with breast cancer. History of prior right stereotactic and right excisional breast biopsies. TECHNIQUE: Digital bilateral breast denise (3D mammographic acquisition) in the CC and MLO projections. 2-D mediolateral oblique (MLO) and craniocaudad (CC) views of both breasts were obtained. CAD: Full Field Digital Mammography with Computer Added Detection was performed. COMPARISON: Comparison is made with prior study dated 04/03/2019. FINDINGS: Breast Composition: There are scattered areas of fibroglandular density. There are no dominant masses or suspicious calcifications. Stable 1 cm nodular density in the lateral anterior upper aspect of the left breast. This was demonstrated to be a cyst on prior sonogram. Stable benign appearing axillary lymph nodes. No other significant abnormalities are identified. There has been no significant change since the prior study. BI/SCRN MAMM (CAD)W/DENISE BILAT IMPRESSION: Stable bilateral screening mammogram. Yearly follow-up mammogram recommended. (A) ASSESSMENT CATEGORY: BIRADS Category 2: Benign. A letter regarding these results will be sent to the patient by the facility within 30 days. Approximately 10% of breast cancers are not detected by mammography. A normal mammogram should not delay biopsy of a clinically suspicious abnormality. [id number] Electronically Signed: Tino Garcia MD at 13:28 EST , Service support ,
--- NOTE | 2020-08-05 12:32 | BD_ITS ---
STUDY: DUAL ENERGY X-RAY ABSORPTIOMETRY / DXA REASON FOR EXAM: Female, 74 years old. 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 COMPARISON: Comparison is made with prior examination dated 05/14/2014. FINDINGS: Lumbar Spine (L1-L4): g/cm2 (1.132) / T-score (-0.4) / Z-score (1.3) Findings are suggestive of normal bone density with a low fracture risk. Left Femur Total: g/cm2 (0.993) / T-score (-0.1) / Z-score (1.5) Left Femoral Neck: g/cm2 (1.016) / T-score (-0.2) / Z-score (1.7) Right Femur Total: g/cm2 (0.947) / T-score (-0.5) / Z-score (1.2) Right Femoral Neck: g/cm2 (0.926) / T-score (-0.8) / Z-score (1.0) The T-Scores on the most recent prior examination were: Lumbar Spine (L1-L4): There has been improvement of bone density since the previous examination. Left Femur Total: which represents a worsening of 1.7%. Right Femur Total: which represents a worsening of 2.2%. BD/Dexa Bone Density Study IMPRESSION: The patient is considered normal as outlined below according to World [place] Organization (WHO) criteria with a low fracture risk. There has been worsening of bone density since the previous examination. Reference Information: The T-score is the number of standard deviations above or below the standard which is normal for young adults at their peak bone mineral density. The World Health Organization (WHO) interprets the T-scores as follows: Above -1 Normal bone density Between -1 and -2.5 Osteopenia Equal to / or below -2.5 Osteoporosis As a practical clinical guideline, osteopenia may be graded as follows: Mild -1 through -1.5 Moderate -1.6 through -2.0 Severe -2.1 through -2.4 The Z-score is the number of standard deviations above or below age-matched controls. A Z-score of less than -1.5 would be considered abnormal. References: 1. NIH Osteoporosis and Related Bone Diseases www osteo.org 2. International Society for Clinical Densitometry www iscd.org 3. National Osteoporosis Foundation www nof.org Electronically Signed: Tino Garcia MD at 14:03 EST , Service support ,
== END ==
PROVIDERS: PCP Family Medicine; Referring Provider Family Medicine; Visit Provider Family Medicine
DX: M81.0 Age-related osteoporosis without current pathological fracture (principal); Z12.31 Encounter for screening mammogram for malignant neoplasm of breast
CPT/HCPCS: 77063; 77067; 77080

== ENCOUNTER 2020-09-02 11:35 | Outpatient (RCR) | payer MEDICARE, SELFPAY ==
[2020-04-16 10:09] VITALS: BMI 33.5
[2020-09-02] MEDS: COVID-19 VACC, MRNA(PFIZER)/PF 30 MCG/0.3 ML SYRINGE IM (09:00)
[2020-09-23] MEDS: COVID-19 VACC, MRNA(PFIZER)/PF 30 MCG/0.3 ML SYRINGE IM (08:46)
== END 2020-12-02 23:59 ==
LOC: IMMUN 11:35
PROVIDERS: PCP Family Medicine; Referring Provider Family Medicine; Visit Provider Family Medicine
DX: Z23 Encounter for immunization (principal)
CPT/HCPCS: 0001A; 0002A; 91300

== ENCOUNTER → 2021-01-23 08:32 | Outpatient (CLI) | payer MEDICARE, OTHER, SELFPAY ==
[2020-10-13 10:38] VITALS: BMI 32.5
--- NOTE | 2021-01-23 08:52 | RAD_ITS ---
STUDY: X-RAY - CERVICAL SPINE REASON FOR EXAM: Female, 75 years old. Neck pain and headache TECHNIQUE: 5 view(s) of the cervical spine were obtained. COMPARISON: None FINDINGS: Normal anterior atlantoaxial articulation. Normal odontoid process. There is straightening of the normal cervical lordosis. There is diffuse demineralization of the cervical spine. There is multi-level degenerative disc disease with multilevel disc space narrowing. There is bilateral foraminal narrowing at C5-6 The soft tissue structures are unremarkable. RAD/Cerv Spine 4 or 5 Views IMPRESSION: Multilevel degenerative changes, no acute findings Electronically Signed: Conor Queen MD at 9:44 EDT , Service support ,
[2021-01-23 10:53] LABS: AST(SGOT) 19 U/L (15-37); Alanine Aminotransfer ALT/SGPT 32 U/L (13-56); Albumin, Serum 3.5 g/dL (3.2-5.0); Alkaline Phosphatase 96 U/L (45-117); Anion Gap 4 (5-15); BUN 7 mg/dL (7-18); BUN/Creat Ratio 9.6 RATIO (10-20); Calcium,Total 8.8 mg/dL (8.5-10.1); Chloride 102 mmol/L (98-107); Creatinine, Serum 0.73 mg/dL (0.55-1.02); EST Glomerular Filtration Rate 83 mL/min (>60); Est Glom Filt Rate - Afr Amer 100 mL/min (>60); Free T3 2.6 pg/mL (2.18-3.98); Globulin 3.6 g/dL (2.2-4.2); Glucose 104 mg/dL (74-106); Potassium 4.5 mmol/L (3.5-5.1); Protein, Total 7.1 g/dL (6.4-8.2); Sodium Level 140 mmol/L (136-145); T4 Free Direct 1.32 ng/dL (0.76-1.46); Thyroid Stim Hormone (TSH) 0.11 uIU/mL (0.358-3.74)
== END ==
PROVIDERS: PCP Family Medicine; Referring Provider Family Medicine; Visit Provider Family Medicine
DX: E03.9 Hypothyroidism, unspecified (principal); M54.2 Cervicalgia; Z51.81 Encounter for therapeutic drug level monitoring
CPT/HCPCS: 36415; 72050; 80053; 84439; 84443; 84481

== ENCOUNTER → 2021-04-20 12:37 | Outpatient (CLI) | payer MEDICARE, OTHER, SELFPAY ==
[2020-10-13 10:38] VITALS: BMI 32.5
--- NOTE | 2021-04-20 12:39 | CT_ITS ---
STUDY: CT CHEST WITHOUT CONTRAST REASON FOR EXAM: Female, 75 years old. Idiopathic pulmonary fibrosis. RADIATION DOSAGE (If Supplied By Facility): CTDIvol = ( 13.66 ) mGy, DLP = ( 481.45 ) mGycm TECHNIQUE: Transaxial imaging was performed without the administration of intravenous contrast material. Multiplanar coronal and sagittal images were reformatted. Individualized dose optimization techniques were used for this CT. COMPARISON: Comparison is made with prior examination of 03/21/2020. FINDINGS: Persistent mild degree of increased interstitial markings at the lung bases suggestive of scarring. The previously seen infiltrates more prominent at the left lung base have almost completely resolved. There is no demonstrated pleural abnormality. There are calcifications of the coronary arteries. Normal mediastinum. Calcified left hilar lymph nodes. Normal unenhanced pulmonary arteries. There is atherosclerotic calcification of the aortic arch with tortuosity and elongation of the aortic arch and descending thoracic aorta. There are multi-level degenerative changes of the thoracic spine. Small hiatal hernia. Status post cholecystectomy. CT/Chest without Contrast IMPRESSION: Mild increased markings at the lung bases suggestive of scarring. The previously seen infiltrates at the lung bases have cleared. Electronically Signed: Tino Garcia MD at 15:34 EDT , Service support ,
== END ==
PROVIDERS: PCP Family Medicine; Referring Provider Internal Medicine Pulmonary Disease; Visit Provider Internal Medicine Pulmonary Disease
DX: J84.112 Idiopathic pulmonary fibrosis (principal)
CPT/HCPCS: 71250

== ENCOUNTER → 2021-04-30 10:48 | Outpatient (CLI) | payer MEDICARE, OTHER, SELFPAY ==
[2021-04-30 11:29] LABS: Absolute Lymphocyte Count 1.56 X10^3/uL (0.83-4.51); Absolute Neutrophil Count 7.4 X10^3/uL (2.0-7.7); Basophil# 0.14 X10^3/uL; Basophil% 1.4 % (0-1); Eosinophils% 2.9 % (0-5); Hematocrit 41.2 % (37-47); Hemoglobin 12.7 g/dL (12.0-15.0); Lymphocyte # 1.56 X10^3/ul (0.83-4.51); Lymphocyte % 15.2 % (19-41); Mean Corp Hgb Conc 30.8 g/dL (32-36); Mean Corpuscular Hgb 25.5 pg (27.0-32.0); Mean Corpuscular Volume 82.6 fL (81-99); Mean Platelet Vol. 10.4 fl (6.2-12.0); Monocyte# 0.84 X10^3/uL; Monocyte% 8.2 % (0-10); NRBC Flagged by Analyzer 0 % (0-5); Neutrophil # 7.39 X10^3/uL (2.7-7.7); Neutrophil % 71.9 % (47-70); Platelet Count 272 K/mm3 (150-450); RBC Distribution Width CV 13.4 % (11.6-14.6); RBC Distribution Width SD 40.2 fl (35.1-43.9); Red Blood Count 4.99 M/mm3 (4.2-5.4); White Blood Count 10.3 K/mm3 (4.4-11.0)
[2021-04-30 12:05] LABS: ALB/GLOB Ratio 0.9 RATIO (0.9-2.4); AST(SGOT) 25 U/L (15-37); Alanine Aminotransfer ALT/SGPT 39 U/L (13-56); Albumin, Serum 3.5 g/dL (3.2-5.0); Alkaline Phosphatase 116 U/L (45-117); Anion Gap 4 (5-15); BUN 8 mg/dL (7-18); BUN/Creat Ratio 10.2 RATIO (10-20); Chloride 100 mmol/L (98-107); Creatinine, Serum 0.78 mg/dL (0.55-1.02); EST Glomerular Filtration Rate 76 mL/min (>60); Est Glom Filt Rate - Afr Amer 92 mL/min (>60); Ferritin 25 ng/mL (8-252); Free T3 2.4 pg/mL (2.18-3.98); Globulin 3.8 g/dL (2.2-4.2); Glucose 99 mg/dL (74-106); Iron 56 ug/dL (50-170); Potassium 4.6 mmol/L (3.5-5.1); Protein, Total 7.3 g/dL (6.4-8.2); Sodium Level 136 mmol/L (136-145); T4 Free Direct 1.39 ng/dL (0.76-1.46); Thyroid Stim Hormone (TSH) 0.13 uIU/mL (0.358-3.74)
[2021-05-04 17:49] LABS: H. PYLORI STOOL AG Negative (Negative)
== END ==
PROVIDERS: PCP Family Medicine; Referring Provider Family Medicine; Visit Provider Family Medicine
DX: E03.9 Hypothyroidism, unspecified (principal); E11.9 Type 2 diabetes mellitus without complications; R19.7 Diarrhea, unspecified; D64.9 Anemia, unspecified; E61.1 Iron deficiency; Z51.81 Encounter for therapeutic drug level monitoring
CPT/HCPCS: 36415; 80053; 82728; 83540; 83630; 84439; 84443; 84481; 85025; 87177; 87209; 87493; 87506

== ENCOUNTER 2021-08-11 08:28 | Outpatient (CLI) | payer MEDICARE, OTHER, SELFPAY | END 2021-08-11 23:59 | disposition home or self-care (01) | LOC: LABSPEC 08-12 08:31 | PROVIDERS: PCP Family Medicine; Visit Provider Family Medicine | DX: Z20.822 Contact with and (suspected) exposure to COVID-19 (principal) | CPT/HCPCS: 87635; U0003; U0005 ==

== ENCOUNTER 2021-09-07 11:24 | Outpatient (CLI) | payer MEDICARE, OTHER, SELFPAY ==
[2021-09-07 13:23] LABS: AST(SGOT) 20 U/L (15-37); Alanine Aminotransfer ALT/SGPT 22 U/L (13-56); Albumin, Serum 3.4 g/dL (3.2-5.0); Alkaline Phosphatase 86 U/L (45-117); Bilirubin, Direct 0.14 mg/dL (0.00-0.30); Cholesterol 163 mg/dL (200); Globulin 3.6 g/dL (2.2-4.2); High Density Lipoprotein 44 mg/dL; Triglycerides 126 mg/dL; Very Low Density Lipoprotein 25 mg/dL (5-40)
== END 2021-09-07 23:59 | disposition home or self-care (01) ==
LOC: LAB 11:26
PROVIDERS: Internal Medicine Cardiovascular Disease; PCP Family Medicine; Referring Provider Family Medicine; Visit Provider Family Medicine
DX: E78.00 Pure hypercholesterolemia, unspecified (principal); I20.9 Angina pectoris, unspecified
CPT/HCPCS: 36415; 80061; 80076

== ENCOUNTER 2021-09-16 13:44 | Outpatient (CLI) | payer MEDICARE, OTHER, SELFPAY ==
--- NOTE | 2021-09-16 13:47 | BI_ITS ---
MAMMOGRAPHY - BILATERAL SCREENING REASON FOR EXAM: Female, 75 years old. Routine annual screening examination. PERTINENT HISTORY: Grandmother with breast cancer. Aunt with breast cancer. Remote right excisional and stereotactic breast biopsies. TECHNIQUE: Digital bilateral breast denise (3D mammographic acquisition) in the CC and MLO projections. 2-D mediolateral oblique (MLO) and craniocaudad (CC) views of both breasts were obtained. CAD: Full Field Digital Mammography with Computer Added Detection was performed. COMPARISON: Comparison is made with prior examination of 08/05/2020 and 04/03/2019. FINDINGS: Breast Composition: There are scattered areas of fibroglandular density. There are no dominant masses or suspicious calcifications. Interval decrease in size of the nodular density in the lateral anterior aspect of the left breast. A tissue clip marker is seen in the central portion of the right breast. Stable small benign-appearing bilateral axillary lymph nodes. No other significant abnormalities are identified. There has been no significant change since the prior study. BI/SCRN MAMM (CAD)W/DENISE BILAT IMPRESSION: Stable bilateral screening mammogram. Yearly follow-up mammogram recommended. (A) ASSESSMENT CATEGORY: BIRADS Category 2: Benign. A letter regarding these results will be sent to the patient by the facility within 30 days. Approximately 10% of breast cancers are not detected by mammography. A normal mammogram should not delay biopsy of a clinically suspicious abnormality. [id number] Electronically Signed: Tino Garcia MD at 14:47 EDT ,
[2021-09-16 15:39] LABS: Free T3 2.1 pg/mL (2.18-3.98); T4 Free Direct 0.92 ng/dL (0.76-1.46); Thyroid Stim Hormone (TSH) 2.82 uIU/mL (0.358-3.74)
== END 2021-09-16 23:59 | disposition home or self-care (01) ==
PROVIDERS: PCP Family Medicine; Visit Provider Family Medicine
DX: Z12.31 Encounter for screening mammogram for malignant neoplasm of breast (principal); E03.9 Hypothyroidism, unspecified
CPT/HCPCS: 36415; 77063; 77067; 84439; 84443; 84481; 85025; 85652; 86140

== ENCOUNTER 2021-10-05 13:44 | Emergency (ER) | payer MEDICARE, OTHER, SELFPAY ==
[2021-10-05 13:44] VITALS: BP 162/71; PULSE 63; RESP 18; TEMP 36.2; O2SAT 93; BMI 29.6
--- NOTE | 2021-10-05 15:18 | CT_ITS ---
STUDY: CT BRAIN WITHOUT CONTRAST REASON FOR EXAM: Female, 75 years old. Head injury due to a fall. RADIATION DOSAGE (If Supplied By Facility): CTDIvol = ( 44.99 ) mGy, DLP = ( 796.11 ) mGycm TECHNIQUE: Transaxial CT imaging of the brain was performed without administration of intravenous contrast material. Individualized dose optimization techniques were used for this CT. COMPARISON: No relevant priors. FINDINGS: Normal soft tissue structures. Normal calvarium. There is mild cerebral atrophy with widening of the extra-axial spaces and ventricular dilatation. There are areas of decreased attenuation within the white matter tracts of the supratentorial brain, consistent with microvascular disease changes. Normal basal ganglia and thalami. Normal brainstem. Normal cerebellum. There is no intracranial hemorrhage. There are no findings of an acute ischemic infarction. Atherosclerotic plaque formation of the cavernous portions of the internal carotid arteries bilaterally. Normal visualized paranasal sinuses. CT/Brain/Head without Contrast IMPRESSION: Chronic involutional changes of the brain. Electronically Signed: Tino Garcia MD at 15:30 EDT ,
--- NOTE | 2021-10-05 15:41 | EDS_ITS ---
HPI HPI - Fall History of Present Illness Chief Complaint: Fall Narrative Narrative: Patient presenting with head injury that happened at home. Patient was trying to walk her dog and the dog pulled away. She states she tugged back hard to pull the dog back but the collar came off and this made her fall backwards hitting her head. No LOC. She states she was a little confused for a couple of seconds. No blurry vision. No dizziness. Steady gait so far. No nausea or vomiting. She complains of a very mild headache. She not on anticoagulation. [facility] Medical History COPD (chronic obstructive pulmonary disease) Diabetes mellitus type 2, noninsulin dependent Ectopic atrial tachycardia Encounter for screening for COVID-19 GERD (gastroesophageal reflux disease) Hyperlipidemia Nonrheumatic mitral (valve) prolapse Nonrheumatic tricuspid valve disorder Paroxysmal SVT (supraventricular tachycardia) Premature atrial contraction Premature ventricular contraction Pure hypercholesterolemia URI (upper respiratory infection) Home Medications duloxetine 60 mg PO DAILY 02/17/15 [History Last Taken Unknown] ergocalciferol (vitamin D2) 50,000 unit PO WE 02/17/15 [History Last Taken 03/19/20] esomeprazole magnesium 40 mg PO DAILY 02/17/15 [History Last Taken 03/20/20] metoprolol succinate 100 mg PO DAILY 02/17/15 [History Last Taken 03/19/20] pravastatin 20 mg PO QHS 02/17/15 [History Last Taken 03/19/20] albuterol sulfate 90 mcg/actuation aerosol inhaler 2 puff INHALATION Q4H PRN g 11/12/19 [History Last Taken 03/20/20] amitriptyline 10 mg tablet 20 mg PO QHS tab 11/12/19 [History Last Taken Unknown] B-complex with vitamin C 1 tablet PO DAILY 10/13/20 [History Last Taken Unknown] alpha lipoic acid 600 mg capsule 600 mg PO DAILY 10/13/20 [History Last Taken Unknown] fluticasone fur. 100 mcg-umeclid 62.5 mcg-vilant 25 mcg inhalat.powder 1 inh INHALATION DAILY 10/13/20 [History Last Taken Unknown] multivitamin 1 tablet PO DAILY 10/13/20 [History Last Taken Unknown] levothyroxine 75 mcg tablet 75 mcg PO DAILY 08/07/21 [History Last Taken Unknown] metformin 500 mg tablet 500 mg PO BID tab 08/07/21 [History Last Taken Unknown] benzonatate 200 mg capsule 200 mg PO TID PRN #30 cap 08/13/21 [Rx Last Taken Unknown] Allergy/AdvReac Type Severity Reaction Status Date / Time cyclobenzaprine Allergy Unknown Verified 10/05/21 13:47 diclofenac Allergy Unknown Verified 10/05/21 13:47 trifluoperazine Allergy Unknown Verified 10/05/21 13:47 Family History Mother Heart disease Brother Myocardial infarction, Onset Age: 63 Brother Diabetes Surgical History History of breast surgery History of cholecystectomy History of colonoscopy (~02/2020) History of tonsillectomy Social History Smoking Status: Former smoker alcohol intake: never substance use type: does not use diet: diabetic caffeine: No what type of physical activity do you participate in: walking frequency: daily duration: 30-45 minutes/day seatbelt use: always do you feel safe at home: Yes ROS ROS ED Constitutional Constitutional ED: Denies chills or fever(s) Eyes Eyes: Denies blurry vision or change in vision ENT ENT ED: Denies rhinorrhea or sore throat Cardiovascular Cardiovascular: Denies chest pain or palpitations Respiratory/Chest Respiratory/Chest: Denies cough or dyspnea Gastrointestinal Gastrointestinal: Denies abdominal pain, nausea or vomiting Genitourinary Genitourinary ED: Denies dysuria or hematuria Musculoskeletal Musculoskeletal: Denies arthralgias, myalgias or neck pain Integumentary Denies rash Neurologic Neurologic: Denies headache(s) or weakness Psychiatric Psychiatric: Denies anxiety or depression EXAM Physical Exam Const Vital Signs: 10/05/21 13:44 Temperature 97.1 F L Temperature Source Temporal Pulse Rate 63 Respiratory Rate 18 Blood Pressure 162/71 H Blood Pressure Mean 101 Pulse Ox 93 Oxygen Delivery Method Room Air Positive well nourished General Appearance ED: NAD HEENT Reports normocephalic atraumatic Eyes PERRL and EOMs intact bilaterally Resp normal respiratory effort and clear to auscultation bilaterally Cardio regular rate and regular rhythm GI Palpation: soft Back/Spine Cervical Spine: Negative for cervical spine tenderness Thoracic Spine / Upper Back: Negative for thoracic spinal tenderness Lumbar Spine / Lower Back: Negative for lumbar spinal tenderness Neuro oriented x3, CN's II-XII intact bilaterally, moves all extremities, no focal motor deficits and no sensory deficits noted Neuro Narrative: Ambulates with steady gait. Sensorium / Orientation: alert Psych mental status grossly normal and thought process normal Skin Lesions: no lesions Rashes: no rashes MDM MDM MDM Narrative Medical decision making narrative: Patient with mild headache and possible mild concussion after hitting her head. She only has a mild headache and took Tylenol prior to arrival. She has no nausea or vomiting. She states initially she felt off but she feels back to her baseline now. I obtained a CT of the brain which is negative. Feel the patient is safe for discharge home. Counseled her on concussion symptoms and return precautions. Patient stable discharge. Impression 1. Mechanical fall 2. Closed head injury 3. Concussion Lab Data Attestation: I reviewed the patient's lab results. Radiography Diagnostic Testing: Clinical Impression(s) from Imaging Studies Brain CT 10/05/21 15:18 IMPRESSION: Chronic involutional changes of the brain. Electronically Signed: Tino Garcia MD at 15:30 EDT , Discharge Plan Triage Chief Complaint: Fall ED Provider: Johnathon Banda Dx/Rx/DC Orders Prescriptions: No Action metformin 500 mg tablet 500 mg PO BID RF: 0 albuterol sulfate [ProAir HFA] 90 mcg/actuation HFA aerosol inhaler 2 puff INHALATION Q4H PRN (Reason: Sob &/Or Wheezing) RF: 0 Trelegy Ellipta 100-62.5-25 mcg blister with device 1 inh INHALATION DAILY RF: 0 multivitamin Tablet 1 tablet PO DAILY RF: 0 B-complex with vitamin C [Super B Complex-Vitamin C] Tablet 1 tablet PO DAILY RF: 0 alpha lipoic acid 600 mg capsule 600 mg PO DAILY RF: 0 levothyroxine 75 mcg tablet 75 mcg PO DAILY RF: 0 benzonatate 200 mg capsule 200 mg PO TID PRN (Reason: cough) Qty: 30 RF: 0 metoprolol succinate 100 MG tablet 100 mg PO DAILY RF: 0 esomeprazole magnesium 40 MG capsule 40 mg PO DAILY RF: 0 pravastatin 20 MG tablet 20 mg PO QHS RF: 0 ergocalciferol (vitamin D2) 50,000 UNIT capsule 50,000 unit PO WE RF: 0 duloxetine 60 MG capsule 60 mg PO DAILY RF: 0 amitriptyline 10 mg tablet 20 mg PO QHS RF: 0 Primary Care Provider: Lisa Lang
== END 2021-10-05 16:03 | disposition home or self-care (01) ==
PROVIDERS: Emergency Provider Student in an Organized Health Care Education/Training Program; PCP Family Medicine; Visit Provider Student in an Organized Health Care Education/Training Program
DX: S06.0X0A Concussion without loss of consciousness, initial encounter (principal); J44.9 Chronic obstructive pulmonary disease, unspecified; E11.9 Type 2 diabetes mellitus without complications; W19.XXXA Unspecified fall, initial encounter; Z87.891 Personal history of nicotine dependence; E78.5 Hyperlipidemia, unspecified; K21.9 Gastro-esophageal reflux disease without esophagitis; Z79.899 Other long term (current) drug therapy; Z79.84 Long term (current) use of oral hypoglycemic drugs; Y93.K9 Activity, other involving animal care; Y99.9 Unspecified external cause status; Y92.009 Unspecified place in unspecified non-institutional (private) residence as the place of occurrence of the external cause
CPT/HCPCS: 70450; 99282

== ENCOUNTER → 2021-11-04 | Outpatient (CLI) | payer MEDICARE, OTHER, SELFPAY ==
--- NOTE | 2021-11-04 09:38 | US_ITS ---
STUDY: SUPERFICIAL ULTRASOUND - CERVICAL REGION. REASON FOR EXAM: Female, 75 years old. TENDER LYMPHADENOPATHY L NECK TECHNIQUE: A superficial ultrasound was performed with real-time and static valadez-scale imaging. COMPARISON: None. FINDINGS: There are 2 well-defined lymph nodes in the left submandibular area. The larger measures 1.1 cm x 1.1 cm x 0.4 cm. Incidental note is also made of a 0.9 cm x 1.1 cm x 0.3 cm lymph node in the right submandibular region. US/Head/Neck Soft Tissue IMPRESSION: Small bilateral submandibular lymph nodes. Electronically Signed: Tino Garcia MD at 13:01 EDT ,
[2021-11-04 10:26] LABS: Erythrocyte Sedimentation Rate 6 mm/hr (0-30)
[2021-11-04 10:29] LABS: Absolute Lymphocyte Count 1.59 X10^3/uL (0.83-4.51); Absolute Neutrophil Count 6.6 X10^3/uL (2.0-7.7); Basophil# 0.15 X10^3/uL; Basophil% 1.6 % (0-1); Eosinophil# 0.42 X10^3/uL; Eosinophils% 4.4 % (0-5); Hematocrit 41.8 % (37-47); Lymphocyte # 1.59 X10^3/ul (0.83-4.51); Lymphocyte % 16.7 % (19-41); Mean Corp Hgb Conc 31.1 g/dL (32-36); Mean Corpuscular Hgb 26.5 pg (27.0-32.0); Mean Corpuscular Volume 85.1 fL (81-99); Mean Platelet Vol. 10.4 fl (6.2-12.0); Monocyte# 0.72 X10^3/uL; Monocyte% 7.6 % (0-10); NRBC Flagged by Analyzer 0 % (0-5); Neutrophil # 6.59 X10^3/uL (2.7-7.7); Neutrophil % 69.3 % (47-70); Platelet Count 225 K/mm3 (150-450); RBC Distribution Width CV 13.6 % (11.6-14.6); RBC Distribution Width SD 42.1 fl (35.1-43.9); Red Blood Count 4.91 M/mm3 (4.2-5.4); White Blood Count 9.5 K/mm3 (4.4-11.0)
[2021-11-04 10:56] LABS: CRP < 2.90 mg/L (0.0-3.0); Free T3 2.1 pg/mL (2.18-3.98); Thyroid Stim Hormone (TSH) 4.82 uIU/mL (0.358-3.74)
== END | disposition home or self-care (01) ==
PROVIDERS: PCP Family Medicine; Referring Provider Family Medicine; Visit Provider Family Medicine
DX: R59.1 Generalized enlarged lymph nodes (principal); R19.7 Diarrhea, unspecified
CPT/HCPCS: 36415; 76536; 84439; 84443; 84481; 85025; 85652; 86140

== ENCOUNTER → 2022-02-25 | Outpatient (CLI) | payer MEDICARE, OTHER, SELFPAY ==
[2022-02-25 09:00] LABS: AST(SGOT) 11 U/L (15-37); Alanine Aminotransfer ALT/SGPT 19 U/L (13-56); Albumin, Serum 3.2 g/dL (3.2-5.0); Alkaline Phosphatase 88 U/L (45-117); Bilirubin, Direct 0.17 mg/dL (0.00-0.30); Cholesterol 140 mg/dL (200); Free T3 2.3 pg/mL (2.18-3.98); Globulin 3.3 g/dL (2.2-4.2); High Density Lipoprotein 44 mg/dL; Protein, Total 6.5 g/dL (6.4-8.2); T4 Free Direct 1.16 ng/dL (0.76-1.46); Thyroid Stim Hormone (TSH) 0.52 uIU/mL (0.358-3.74); Triglycerides 108 mg/dL; Very Low Density Lipoprotein 22 mg/dL (5-40)
== END | disposition home or self-care (01) ==
LOC: LAB 08:04
PROVIDERS: Internal Medicine Cardiovascular Disease; PCP Family Medicine; Visit Provider Family Medicine
DX: E03.9 Hypothyroidism, unspecified (principal)
CPT/HCPCS: 36415; 80061; 80076; 84439; 84443; 84481

== ENCOUNTER → 2022-04-27 | Outpatient (CLI) | payer MEDICARE, OTHER, SELFPAY ==
--- NOTE | 2022-04-27 08:30 | MRI_ITS ---
STUDY: MRI BRAIN WITH AND WITHOUT CONTRAST REASON FOR EXAM: Female, 76 years old. RIGHT SIDED WEAKNESS TECHNIQUE: Standardized multiplanar fat and water weighted pulse sequences were obtained. IV 17ml Clariscan was administered for the contrast portion of the examination. COMPARISON: CT 10/05/2021 FINDINGS: There is mild cerebral atrophy with widening of the extra-axial spaces and ventricular dilatation. There are a limited number of small white matter hyperintensities, distributed throughout the deep white matter tracts of the cerebral hemispheres, consistent with mild chronic white matter ischemic changes. There is no evidence for recent intracranial ischemia or other cause of cytotoxic edema on diffusion weighted imaging (DWI). Normal T2* images of the brain without demonstrated susceptibility artifact. There is no demonstrated hemosiderin stain. Normal bilateral basal ganglia. Normal thalami. There is no extra-axial fluid accumulation. Normal flow voids within the major intracranial circulation suggesting patency by spin echo criteria. Normal venous enhancement. There is no enhancing intra-axial or extra-axial abnormality. Normal sella turcica, pituitary gland, infundibular stalk, optic chiasm and hypothalamus. Normal tectal plate and pineal gland. Normal midbrain, rick and medulla. Normal cerebellum. Normal basal cisterns. Normal bilateral temporal bones. Normal bilateral internal auditory canals. No demonstrated orbital abnormality, within the constraints of a routine brain study. Normal visualized paranasal sinuses. Normal calvarium and skull base. Normal visualized soft tissue structures. Normal visualized upper cervical spine. MRI/Brain W/WO Contrast IMPRESSION: Involutional changes of the brain, as described above. No acute infarct. Electronically Signed: Elmer Bean MD at 9:55 EDT ,
[2022-04-27 09:05] LABS: CREATININE FINGERSTICK < 0.9 mg/dL (0.55-1.02); EGFR FINGERSTICK > 60.0000 mL/min (>60)
== END | disposition home or self-care (01) ==
LOC: MRI 07:49
PROVIDERS: PCP Family Medicine; Referring Provider Family Medicine; Visit Provider Family Medicine
DX: E11.9 Type 2 diabetes mellitus without complications (principal); R29.90 Unspecified symptoms and signs involving the nervous system
CPT/HCPCS: 70553; A9575

== ENCOUNTER → 2022-06-04 | Outpatient (CLI) | payer MEDICARE, OTHER, SELFPAY ==
--- NOTE | 2022-06-04 10:02 | CDU_ITS ---
Reason For Study: RTsided weakness & pain Rt. Velocities/BP Lt. Velocities/BP Prox CCA 96.3*14.9 cm/sec. Prox CCA 79.9/12.8 cm/sec. Mid CCA 57.8/16.0 cm/sec. Mid CCA 69.5/14.7 cm/sec. Dist CCA 64.4/17.1 cm/sec. Dist CCA 66.7/14.7 cm/sec. Prox ICA 56.7/17.1 cm/sec. Prox ICA 56.3/7.2 cm/sec. Mid ICA 63.3/21.5 cm/sec. Mid ICA 56.3/14.7 cm/sec. Dist ICA 83.1/25.9 cm/sec. Dist ICA 68.0/21.9 cm/sec. Rt. ICA/CCA = 83.1/57.8=1.4. Lt. ICA/CCA = 68.0/69.5=1.0. Prox ECA 69.9/9.5 cm/sec. Prox ECA 68.6/7.2 cm/sec. Rt. Vert. 46.9/13.5 cm/sec. Lt. Vert. 74.3/21.4 cm/sec. Right Extracranial There is intimal thickening but no significant atherosclerotic plaque noted in the right common carotid artery. There is intimal thickening but no significant atherosclerotic plaque noted in the right internal carotid artery. There is no significant atherosclerotic plaque noted in the right external carotid artery. Antegrade flow is noted in the right vertebral artery. Left Extracranial There is intimal thickening but no significant atherosclerotic plaque noted in the left common carotid artery. There is intimal thickening but no significant atherosclerotic plaque noted in the left internal carotid artery. The left internal carotid artery is not well visualized. The left internal carotid artery is very tortuous. There is no significant atherosclerotic plaque noted in the left external carotid artery. Antegrade flow is noted in the left vertebral artery. Procedure Carotid Duplex [id number]. This is a Carotid Duplex examination using B-mode, color flow and specral Doppler. Exam performed in department. VL/Carotid Duplex Ultrasound Interpretation Summary Normal right extracranial internal carotid. Normal left extracranial internal carotid. Patent and antegrade vertebrals bilaterally. Ordering Physician: Alisha Corey Referring Physician: Alisha Corey Performed By: Belgica Alvares, JEY, RVT
== END | disposition home or self-care (01) ==
LOC: CVS 10:00
PROVIDERS: PCP Family Medicine; Referring Provider Family Medicine; Visit Provider Family Medicine
DX: R42 Dizziness and giddiness (principal)
CPT/HCPCS: 93880

== ENCOUNTER → 2022-08-16 | Outpatient (CLI) | payer MEDICARE, OTHER, SELFPAY ==
[2022-08-16 11:05] LABS: Absolute Lymphocyte Count 1.68 X10^3/uL (0.83-4.51); Absolute Neutrophil Count 6.9 X10^3/uL (2.0-7.7); Basophil# 0.12 X10^3/uL; Basophil% 1.2 % (0-1); Eosinophil# 0.59 X10^3/uL; Eosinophils% 5.8 % (0-5); Hematocrit 43.1 % (37-47); Hemoglobin 12.9 g/dL (12.0-15.0); Lymphocyte # 1.68 X10^3/ul (0.83-4.51); Lymphocyte % 16.6 % (19-41); Mean Corp Hgb Conc 29.9 g/dL (32-36); Mean Corpuscular Hgb 25.3 pg (27.0-32.0); Mean Corpuscular Volume 84.7 fL (81-99); Mean Platelet Vol. 10.4 fl (6.2-12.0); Monocyte# 0.82 X10^3/uL; Monocyte% 8.1 % (0-10); NRBC Flagged by Analyzer 0 % (0-5); Neutrophil # 6.86 X10^3/uL (2.7-7.7); Neutrophil % 67.8 % (47-70); Platelet Count 254 K/mm3 (150-450); RBC Distribution Width CV 13.8 % (11.6-14.6); RBC Distribution Width SD 42.5 fl (35.1-43.9); Red Blood Count 5.09 M/mm3 (4.2-5.4); White Blood Count 10.1 K/mm3 (4.4-11.0)
[2022-08-16 11:41] LABS: ALB/GLOB Ratio 0.9 RATIO (0.9-2.4); AST(SGOT) 20 U/L (15-37); Alanine Aminotransfer ALT/SGPT 29 U/L (13-56); Albumin, Serum 3.4 g/dL (3.2-5.0); Alkaline Phosphatase 119 U/L (45-117); Anion Gap 4 (5-15); BUN 8 mg/dL (7-18); BUN/Creat Ratio 11.3 RATIO (10-20); Calcium,Total 9.3 mg/dL (8.5-10.1); Chloride 103 mmol/L (98-107); EST Glomerular Filtration Rate 86 mL/min (>60); Est Glom Filt Rate - Afr Amer 104 mL/min (>60); Globulin 3.9 g/dL (2.2-4.2); Glucose 137 mg/dL (74-106); Potassium 4.3 mmol/L (3.5-5.1); Protein, Total 7.3 g/dL (6.4-8.2); Sodium Level 142 mmol/L (136-145)
== END | disposition home or self-care (01) ==
LOC: LAB 10:39
PROVIDERS: PCP Family Medicine; Referring Provider Family Medicine; Visit Provider Family Medicine
DX: R53.83 Other fatigue (principal); R42 Dizziness and giddiness
CPT/HCPCS: 36415; 80053; 85025

== ENCOUNTER → 2022-09-24 | Outpatient (CLI) | payer MEDICARE, OTHER, SELFPAY ==
[2022-09-24 14:04] LABS: AST(SGOT) 24 U/L (15-37); Alanine Aminotransfer ALT/SGPT 40 U/L (13-56); Albumin, Serum 3.7 g/dL (3.2-5.0); Alkaline Phosphatase 137 U/L (45-117); Bilirubin, Direct 0.13 mg/dL (0.00-0.30); Cholesterol 148 mg/dL (200); Globulin 4.1 g/dL (2.2-4.2); High Density Lipoprotein 42 mg/dL; Protein, Total 7.8 g/dL (6.4-8.2); Triglycerides 126 mg/dL; Very Low Density Lipoprotein 25 mg/dL (5-40)
== END | disposition home or self-care (01) ==
PROVIDERS: PCP Family Medicine; Referring Provider Internal Medicine Cardiovascular Disease; Visit Provider Internal Medicine Cardiovascular Disease
DX: E78.00 Pure hypercholesterolemia, unspecified (principal)
CPT/HCPCS: 36415; 80061; 80076

== ENCOUNTER → 2022-12-02 | Outpatient (CLI) | payer MEDICARE, OTHER, SELFPAY | END | disposition home or self-care (01) | LOC: LABSPEC 16:00 | PROVIDERS: PCP Family Medicine; Referring Provider Family Medicine; Visit Provider Family Medicine | DX: R30.0 Dysuria (principal) | CPT/HCPCS: 87086; 87088; 87186 ==

== ENCOUNTER → 2023-01-21 | Outpatient (CLI) | payer MEDICARE, OTHER, SELFPAY ==
--- NOTE | 2023-01-21 12:58 | BI_ITS ---
MAMMOGRAPHY - BILATERAL SCREENING REASON FOR EXAM: Female, 77 years old. Routine annual screening examination. PERTINENT HISTORY: Grandmother with breast cancer. Aunt with breast cancer. Prior right stereotactic and excisional breast biopsies. TECHNIQUE: Digital bilateral breast denise (3D mammographic acquisition) in the CC and MLO projections. 2-D mediolateral oblique (MLO) and craniocaudad (CC) views of both breasts were obtained. CAD: Full Field Digital Mammography with Computer Added Detection was performed. COMPARISON: Comparison is made with prior study of September 16, 2021 and August 05, 2020. FINDINGS: Breast Composition: There are scattered areas of fibroglandular density. There are no dominant masses or suspicious calcifications. A tissue clip marker is once again seen in the central portion of the right breast. No other significant abnormalities are identified. There has been no significant change since the prior study. BI/SCRN MAMM (CAD)W/DENISE BILAT IMPRESSION: Stable bilateral screening mammogram. Yearly follow-up mammogram recommended. (A) ASSESSMENT CATEGORY: BIRADS Category 2: Benign. A letter regarding these results will be sent to the patient by the facility within 30 days. Approximately 10% of breast cancers are not detected by mammography. A normal mammogram should not delay biopsy of a clinically suspicious abnormality. [id number] Electronically Signed: Tino Garcia MD at 13:43 EDT ,
== END | disposition home or self-care (01) ==
LOC: OPBI 12:56
PROVIDERS: PCP Family Medicine; Referring Provider Family Medicine; Visit Provider Family Medicine
DX: Z12.31 Encounter for screening mammogram for malignant neoplasm of breast (principal)
CPT/HCPCS: 77063; 77067

== ENCOUNTER → 2023-04-18 | Outpatient (CLI) | payer MEDICARE, OTHER, SELFPAY ==
[2023-04-18 11:13] LABS: Hemoglobin A1c 6.5 % (3.8-5.6)
[2023-04-18 11:17] LABS: ALB/GLOB Ratio 0.9 RATIO (0.9-2.4); AST(SGOT) 15 U/L (15-37); Alanine Aminotransfer ALT/SGPT 25 U/L (13-56); Albumin, Serum 3.5 g/dL (3.2-5.0); Alkaline Phosphatase 101 U/L (45-117); Anion Gap 1 (5-15); BUN 11 mg/dL (7-18); BUN/Creat Ratio 14.6 RATIO (10-20); Bilirubin, Direct 0.11 mg/dL (0.00-0.30); Calcium,Total 9.1 mg/dL (8.5-10.1); Chloride 101 mmol/L (98-107); Cholesterol 150 mg/dL (200); Creatinine, Serum 0.75 mg/dL (0.55-1.02); EST Glomerular Filtration Rate 79 mL/min (>60); Est Glom Filt Rate - Afr Amer 96 mL/min (>60); Free T3 1.8 pg/mL (2.18-3.98); Globulin 3.7 g/dL (2.2-4.2); Glucose 111 mg/dL (74-106); High Density Lipoprotein 36 mg/dL; Protein, Total 7.2 g/dL (6.4-8.2); Sodium Level 136 mmol/L (136-145); T4 Free Direct 1.02 ng/dL (0.76-1.46); Thyroid Stim Hormone (TSH) 7.29 uIU/mL (0.358-3.74); Triglycerides 212 mg/dL; Very Low Density Lipoprotein 42 mg/dL (5-40)
[2023-04-18 11:49] LABS: Microalbumin,Random Urine < 5.0 mg/L (NO RANGE EST.)
== END | disposition home or self-care (01) ==
LOC: LAB 10:22
PROVIDERS: PCP Family Medicine; Referring Provider Physician Assistant Medical; Visit Provider Physician Assistant Medical
DX: E03.9 Hypothyroidism, unspecified (principal); E11.9 Type 2 diabetes mellitus without complications; Z51.81 Encounter for therapeutic drug level monitoring
CPT/HCPCS: 36415; 80053; 80061; 82043; 82248; 82570; 83036; 84439; 84443; 84481

== ENCOUNTER 2023-07-16 12:01 | Emergency (ER) | payer MEDICARE, OTHER, SELFPAY ==
[2023-07-16] VITALS (11 sets, daily range): BP systolic 69–129; BP diastolic 52–85; PULSE 67–141; RESP 14–22; TEMP 36.1; O2SAT 90–96; BMI 31.1
--- NOTE | 2023-07-16 12:28 | EX.ED.DYSGE1 ---
HPI History of Present Illness Chief Complaint: Palpitations Informant: patient Onset/Context/Timing Onset: Yesterday Timing: Intermittent Quality: palpitations Location: chest Current Severity: Gone Maximum Severity: Moderate Narrative Narrative: Patient presents feeling palpitations in her chest intermittently. She felt a last night and again this morning but she does not feel anything right now. No associated symptoms. No chest discomfort/heaviness, dyspnea, lightheadedness, leg edema, recent illness. She drinks a large Diet Coke every day as far as caffeine intake, but no other sources and no recent changes. No recent [id number] medications, no decongestants. She has been compliant with her medications, which include metoprolol succinate 25 mg nightly for mitral valve prolapse (she thought the dose was 25 mg but it appears to be higher at 100). She has history of COPD, she has been on the metoprolol for a long time and it does not bother her breathing, which has been stable she uses oxygen at nighttime. [facility] Medical History COPD (chronic obstructive pulmonary disease) Diabetes mellitus type 2, noninsulin dependent Ectopic atrial tachycardia Encounter for screening for COVID-19 GERD (gastroesophageal reflux disease) Hyperlipidemia Nonrheumatic mitral (valve) prolapse Nonrheumatic tricuspid valve disorder Paroxysmal SVT (supraventricular tachycardia) Premature atrial contraction Premature ventricular contraction Pure hypercholesterolemia URI (upper respiratory infection) Home Medications duloxetine 60 mg capsule,delayed release 60 mg PO DAILY FIBROMYALGA 02/17/15 [History Last Taken Unknown] ergocalciferol (vitamin D2) 1,250 mcg (50,000 unit) capsule 50,000 unit PO WE SUPPLEMENT 02/17/15 [History Last Taken 03/19/20] esomeprazole magnesium 40 mg capsule,delayed release 40 mg PO DAILY GERD 02/17/15 [History Last Taken 03/20/20] metoprolol succinate 100 mg tablet,extended release 24 hr 100 mg PO DAILY HEART 02/17/15 [History Last Taken 03/19/20] pravastatin 20 mg tablet 20 mg PO QHS CHOLESTEROL 02/17/15 [History Last Taken 03/19/20] albuterol sulfate 90 mcg/actuation aerosol inhaler (ProAir HFA) 2 puff inhalation Q4H PRN Sob &/Or Wheezing 11/12/19 [History Last Taken 03/20/20] amitriptyline 10 mg tablet 20 mg PO QHS SLEEP 11/12/19 [History Last Taken Unknown] B-complex with vitamin C (Super B Complex-Vitamin C tablet) 1 tablet PO DAILY 10/13/20 [History Last Taken Unknown] alpha lipoic acid 600 mg capsule 600 mg PO DAILY 10/13/20 [History Last Taken Unknown] fluticasone fur. 100 mcg-umeclid 62.5 mcg-vilant 25 mcg inhalat.powder (Trelegy Ellipta) 1 inh inhalation DAILY 10/13/20 [History Last Taken Unknown] multivitamin 1 tablet PO DAILY 10/13/20 [History Last Taken Unknown] metformin 500 mg tablet 500 mg PO BID DM 08/07/21 [History Last Taken Unknown] aspirin 81 mg tablet,delayed release (Adult Aspirin Regimen) 81 mg PO DAILY 11/08/22 [History Last Taken Unknown] apixaban 5 mg tablet (Eliquis) 5 mg PO BID #60 tabs 07/16/23 [Rx Last Taken Unknown] diltiazem HCl 120 mg capsule,extended release 24 hr (Cardizem CD) 120 mg PO DAILY #30 caps 07/16/23 [Rx Last Taken Unknown] levothyroxine 88 mcg capsule 88 mcg PO DAILY 07/16/23 [History Last Taken Unknown] Allergy/AdvReac Type Severity Reaction Status Date / Time cyclobenzaprine Allergy Unknown Verified 07/16/23 12:15 diclofenac Allergy Unknown Verified 07/16/23 12:15 trifluoperazine Allergy Unknown Verified 07/16/23 12:15 Family History Mother Heart disease Brother Myocardial infarction, Onset Age: 63 Brother Diabetes Surgical History History of breast surgery History of cholecystectomy History of colonoscopy (~02/2020) History of tonsillectomy Social History household members: family housing: house Smoking Status: Former smoker alcohol intake: never substance use type: does not use diet: diabetic caffeine: No what type of physical activity do you participate in: walking frequency: daily duration: 30-45 minutes/day seatbelt use: always do you feel safe at home: Yes ROS ROS ED Constitutional Constitutional ED: Denies chills or fever(s) Eyes Eyes: Denies change in vision or diplopia ENT ENT ED: Denies rhinorrhea or sore throat Cardiovascular Cardiovascular: Reports palpitations; Denies chest pain, orthopnea, orthostatic symptoms, pedal edema or radiating jaw, neck or arm pain Respiratory/Chest Respiratory/Chest: Denies cough, dyspnea or orthopnea Gastrointestinal Gastrointestinal: Denies abdominal pain, diarrhea, nausea or vomiting Genitourinary Genitourinary ED: Denies dysuria or hematuria Musculoskeletal Musculoskeletal: Denies back pain or neck pain Integumentary Denies abscess or rash Neurologic Neurologic: Denies headache(s), paresthesias or weakness Psychiatric Psychiatric: Denies anxiety or suicidal thoughts EXAM Physical Exam Const Vital Signs: 07/16/23 12:02 07/16/23 12:11 07/16/23 12:12 Temperature 97 F L Temperature Source Temporal Pulse Rate 101 H 141 H Respiratory Rate 16 20 H Respiratory Effort Non-Labored Blood Pressure 125/85 H Blood Pressure Mean 98 Pulse Ox 96 94 Oxygen Delivery Method Room Air Room Air Oxygen Flow Rate (L/min) 07/16/23 12:26 07/16/23 12:33 07/16/23 12:44 Temperature Temperature Source Pulse Rate 126 H 72 Respiratory Rate 14 18 Respiratory Effort Blood Pressure 96/74 69/52 L Blood Pressure Mean 81 57 Pulse Ox 93 90 Oxygen Delivery Method Room Air Oxygen Flow Rate (L/min) 07/16/23 12:49 07/16/23 13:00 07/16/23 13:15 Temperature Temperature Source Pulse Rate 74 67 74 Respiratory Rate 22 H 14 14 Respiratory Effort Blood Pressure 84/60 L 102/66 102/64 Blood Pressure Mean 68 78 76 Pulse Ox 96 95 95 Oxygen Delivery Method Nasal Cannula Oxygen Flow Rate (L/min) 4 07/16/23 14:00 07/16/23 15:00 07/16/23 16:07 Temperature Temperature Source Pulse Rate 76 88 86 Respiratory Rate 21 H 18 17 Respiratory Effort Blood Pressure 118/68 123/73 H 129/74 H Blood Pressure Mean 84 89 92 Pulse Ox 92 94 92 Oxygen Delivery Method Nasal Cannula Nasal Cannula Oxygen Flow Rate (L/min) 2 2 Positive well nourished and well developed General Appearance ED: well developed and NAD HEENT Reports moist mucous membranes normocephalic and atraumatic Eyes PERRL and EOMs intact bilaterally Neck full ROM and supple Resp normal respiratory effort and clear to auscultation bilaterally Cardio no murmurs Rate: tachycardic Rhythm: abnormal rhythm irregularly irregular GI non-tender and non-distended Auscultation: normoactive bowel sounds Palpation: soft Back/Spine no CVA tenderness General Back: other FROM Extremity normal to inspection General Extremety ED: Negative for edema, pulses abnormal or tenderness General Extremity: Negative for edema or pulses abnormal Neuro oriented x3, CN's II-XII intact bilaterally and no sensory deficits noted Sensorium / Orientation: awake and alert Motor Exam: strength 5/5 throughout Skin no rashes or lesions noted and no wounds MDM MDM MDM Narrative Medical decision making narrative: Monitor and EKG show atrial fibrillation with RVR. At that time the patient is wavering between 120-140 and she is asymptomatic. Given this I do not know exactly how long she has been in atrial fibrillation, so emergent cardioversion is not indicated or recommended. While working her up I gave her a dose of Cardizem to slow her down. In the meantime calculated [id number] score, which is 4, see below. She is on baby aspirin daily, but anticoagulation is recommended given this. MARY KAY<sub>2</sub>DS<sub>2</sub>-VASc Score for Atrial Fibrillation Stroke Risk from [employer] on 07/16/2023 All calculations should be rechecked by clinician prior to use RESULT SUMMARY: 4 points Stroke risk was 4.8% per year in >90,000 patients (the [place] Atrial Fibrillation Cohort Study) and 6.7% risk of stroke/TIA/systemic embolism. One recommendation suggests a 0 score for men or 1 score for women (no clinical risk factors) is ?low? risk and may not require anticoagulation; a 1 score for men or 2 score for women is ?low-moderate? risk and should consider antiplatelet or anticoagulation; and a score >= for men or >= for women is ?moderate-high? risk and should otherwise be an anticoagulation candidate. INPUTS: Age ?> 2 = >=5 Sex ?> 1 = Female CHF history ?> 0 = No Hypertension history ?> 0 = No Stroke/TIA/thromboembolism history ?> 0 = No Vascular disease history (prior [place], peripheral artery disease, or aortic plaque) ?> 0 = No Diabetes history ?> 1 = Yes Treated the patient while waiting for lab results, which were unremarkable, with Cardizem 20 mg IV. This controlled her rate into the 70-80 range throughout the rest of her ED stay, she transiently was hypotensive this came up with IV fluids and she was asymptomatic throughout. Discussed with cardiology Dr. Ley. Advises adding low-dose long-acting once daily Cardizem to her regimen and prescribing her a apixaban which is done. She was given initial doses of both here and given appropriate reasons to return to the hospital she is comfortable with that plan will follow-up with cardiology. History & Record Review Additional record(s) reviewed:: Prior labs Lab Data Attestation: I reviewed the patient's lab results. Labs: Laboratory Results - last 24 hr 07/16/23 12:31 WBC 9.6 RBC 5.12 Hgb 13.0 Hct 42.9 MCV 83.8 MCH 25.4 L MCHC 30.3 L RDW Std Deviation 41.9 RDW Coeff of Fernie 13.6 Plt Count 220 MPV 9.7 Immature Gran % (Auto) 0.400 Neut % (Auto) 71.3 H Lymph % (Auto) 15.8 L Monroe % (Auto) 7.9 Eos % (Auto) 3.3 Baso % (Auto) 1.3 H Absolute Neuts (auto) 6.8 Absolute Lymphs (auto) 1.51 Nucleated RBC % 0 Sodium 139 Potassium 4.0 Chloride 105 Carbon Dioxide 32.0 Anion Gap 2 L BUN 9 Creatinine 0.75 Estim Creat Clear Calc 64.33 Est GFR (MDRD) Af Amer 97 Est GFR (MDRD) Non-Af 80 BUN/Creatinine Ratio 12.0 Glucose 176 H Calcium 9.0 Troponin I High Sens 49 Rhythm Strip Rhythm Strip: A-fib Rate: 122 Ectopy: None EKG Initial EKG: Attestation: I personally reviewed and interpreted this EKG as follows: Interpretation: No Acute Injury Pattern, Atrial Fibrillation and Non-Specific ST Changes Prior: Changed (NSR prior) Management Discussion w/another healthcare provider: [employer] Machine [employer] ([facility]) Discharge Plan Triage Chief Complaint: Palpitations ED Provider: Americo De La Cruz Dx/Rx/DC Orders Clinical Impression: Atrial fibrillation with RVR Instructions: AFib Dc Prescriptions: New diltiazem HCl [Cardizem CD] 120 mg capsule,extended release 24hr 120 mg PO DAILY Qty: 30 0RF Eliquis 5 mg tablet 5 mg PO BID Qty: 60 0RF No Action metformin 500 mg tablet 500 mg PO BID Rx Instructions: Patient states that she does not take it every day albuterol sulfate [ProAir HFA] 90 mcg/actuation HFA aerosol inhaler 2 puff INHALATION Q4H PRN (Reason: Sob &/Or Wheezing) Trelegy Ellipta 100-62.5-25 mcg blister with device 1 inh INHALATION DAILY multivitamin Tablet 1 tablet PO DAILY B-complex with vitamin C [Super B Complex-Vitamin C] Tablet 1 tablet PO DAILY alpha lipoic acid 600 mg capsule 600 mg PO DAILY aspirin [Adult Aspirin Regimen] 81 mg tablet,delayed release (DR/EC) 81 mg PO DAILY metoprolol succinate 100 MG tablet 100 mg PO DAILY esomeprazole magnesium 40 MG capsule 40 mg PO DAILY pravastatin 20 MG tablet 20 mg PO QHS ergocalciferol (vitamin D2) 50,000 UNIT capsule 50,000 unit PO WE duloxetine 60 MG capsule 60 mg PO DAILY amitriptyline 10 mg tablet 20 mg PO QHS levothyroxine 88 mcg capsule 88 mcg PO DAILY Primary Care Provider: Lisa Lang Referrals: Tano Ley MD [Med Staff - Active Staff] - As soon as possible (call for appt to be seen by first available provider) Lisa Lang, [Primary Care Provider] - Activity Restrictions/Additional Instructions: You will take the new Cardizem in the morning. The blood thinner will be twice daily, stop your aspirin now that you are on that. Disposition Disposition: Home, Self Care Discharge Date/Time: 07/16/23 16:10
[2023-07-16 12:39] LABS: Absolute Lymphocyte Count 1.51 X10^3/uL (0.83-4.51); Absolute Neutrophil Count 6.8 X10^3/uL (2.0-7.7); Basophil# 0.12 X10^3/uL; Basophil% 1.3 % (0-1); Eosinophil# 0.32 X10^3/uL; Eosinophils% 3.3 % (0-5); Hematocrit 42.9 % (37-47); Lymphocyte # 1.51 X10^3/ul (0.83-4.51); Lymphocyte % 15.8 % (19-41); Mean Corp Hgb Conc 30.3 g/dL (32-36); Mean Corpuscular Hgb 25.4 pg (27.0-32.0); Mean Corpuscular Volume 83.8 fL (81-99); Mean Platelet Vol. 9.7 fl (6.2-12.0); Monocyte# 0.76 X10^3/uL; Monocyte% 7.9 % (0-10); NRBC Flagged by Analyzer 0 % (0-5); Neutrophil # 6.83 X10^3/uL (2.7-7.7); Neutrophil % 71.3 % (47-70); Platelet Count 220 K/mm3 (150-450); RBC Distribution Width CV 13.6 % (11.6-14.6); RBC Distribution Width SD 41.9 fl (35.1-43.9); Red Blood Count 5.12 M/mm3 (4.2-5.4); White Blood Count 9.6 K/mm3 (4.4-11.0)
[2023-07-16] MEDS: dilTIAZem 25 MG/5 ML Vial 20 MG IV BOLUS (12:42)
[2023-07-16] MEDS: 0.9% Normal Saline (500mL Bag) 500 ML 999 ML IV (12:54)
[2023-07-16 12:57] LABS: Anion Gap 2 (5-15); BUN 9 mg/dL (7-18); Chloride 105 mmol/L (98-107); Creatinine, Serum 0.75 mg/dL (0.55-1.02); EST Glomerular Filtration Rate 80 mL/min (>60); Est Glom Filt Rate - Afr Amer 97 mL/min (>60); Estimated Creatinine Clearance 64.33 ml/min; Glucose 176 mg/dL (74-106); Sodium Level 139 mmol/L (136-145); Troponin-I HS 49 pg/mL (3.0-54.0)
[2023-07-16] MEDS: APIXABAN 5 MG TABLET PO (16:06)
[2023-07-16] MEDS: dilTIAZem CD 120 MG Capsule PO (16:06)
== END 2023-07-16 16:10 | disposition home or self-care (01) ==
PROVIDERS: Emergency Provider Emergency Medicine; PCP Family Medicine; Visit Provider Emergency Medicine
DX: I48.91 Unspecified atrial fibrillation (principal); J44.9 Chronic obstructive pulmonary disease, unspecified; E11.9 Type 2 diabetes mellitus without complications; I34.1 Nonrheumatic mitral (valve) prolapse; Z87.891 Personal history of nicotine dependence; E78.00 Pure hypercholesterolemia, unspecified; Z79.890 Hormone replacement therapy; Z79.899 Other long term (current) drug therapy
CPT/HCPCS: 80048; 84484; 85025; 93005; 96361; 96374; 99285; J7040; A4216

== ENCOUNTER → 2023-07-21 | Outpatient (CLI) | payer MEDICARE, OTHER, SELFPAY ==
[2023-07-21 11:27] LABS: Free T3 1.9 pg/mL (2.18-3.98); Thyroid Stim Hormone (TSH) 5.99 uIU/mL (0.358-3.74)
== END | disposition home or self-care (01) ==
LOC: LAB 09:27
PROVIDERS: PCP Family Medicine; Referring Provider Nurse Practitioner Gerontology; Visit Provider Nurse Practitioner Gerontology
DX: I48.91 Unspecified atrial fibrillation (principal)
CPT/HCPCS: 36415; 83735; 84439; 84443; 84481

== ENCOUNTER → 2023-09-02 | Outpatient (CLI) | payer MEDICARE, OTHER, SELFPAY ==
--- NOTE | 2023-09-02 08:57 | ECHOD_ITS ---
Reason For Study: Afib, Aflutter Procedure This was a 2D Doppler, Color Flow transthoracic echocardiogram. Contrast injection was performed. Exam performed in department. Left Ventricle Normal LV size. The estimated ejection fraction is 60 %. No regional wall motion abnormalities noted. Right Ventricle Normal RV size. Normal systolic function. Atria The left atrium is mildly enlarged. Normal right atrium. No doppler evidence for ASD. Mitral Valve There is no mitral valve stenosis. Mild (1+) mitral valve insufficiency. Tricuspid Valve There is no tricuspid stenosis. Moderate (2+) tricuspid valve insufficiency. Pulmonary artery systolic pressure is 40 mmHg. Aortic Valve Trisinus/trileaflet aortic valve. There is no aortic stenosis. No aortic valve insufficiency. Pulmonic Valve There is no pulmonic valvular stenosis. Trivial pulmonic valve insufficiency. Great Vessels Normal aortic root. Pericardium/Pleural No pericardial effusion. MMode/2D Measurements & Calculations LVIDd: 5.1 cm IVSd: 0.96 cm Ao root diam: 3.7 cm LVIDs: 3.2 cm LVPWd: 0.84 cm RVDd: 3.3 cm FS: 36.9 % LAV(MOD-bp): 60.5 ml LVAd ap4: 14.4 cm2 SV(MOD-sp4): 14.0 ml LAV(MOD-bp) Indexed: 36.1 ml/m2 LVLd ap4: 6.7 cm LAV(MOD-sp2): 51.5 ml EDV(MOD-sp4): 25.1 ml LAV(MOD-sp4): 64.5 ml EDV(sp4-el): 26.3 ml LVAs ap4: 8.6 cm2 LVLs ap4: 5.8 cm ESV(MOD-sp4): 11.1 ml ESV(sp4-el): 10.8 ml EF(MOD-sp4): 55.8 % EF(sp4-el): 58.8 % SV(sp4-el): 15.5 ml LA A4 area: 23.2 cm2 LA dimension(2D): 5.2 cm RA A4 area: 18.0 cm2 TAPSE: 1.6 cm Doppler Measurements & Calculations MV E max erick: 89.1 cm/sec Lat Peak E' Erick: 14.7 cm/sec Med Peak E' Erick: 7.1 cm/sec E/E' lat: 6.1 E/E' med: 12.5 Ao V2 max: 109.9 cm/sec LV V1 max: 88.2 cm/sec PA V2 max: 67.1 cm/sec Ao max P.8 mmHg LV V1 max P.1 mmHg Ao V2 mean: 85.1 cm/sec LV V1 mean P.0 mmHg Ao mean P.0 mmHg LV V1 mean: 69.4 cm/sec Ao V2 VTI: 21.2 cm LV V1 VTI: 16.8 cm AV (velocity ratio): 0.79 PI end-d erick: 115.5 cm/sec TR max erick: 294.7 cm/sec TR max P.7 mmHg ECHO/Echo Complete Interpretation Summary The estimated ejection fraction is 60 %. The left atrium is mildly enlarged. Mild (1+) mitral valve insufficiency. Ordering Physician: Hedy Cordero Referring Physician: Lisa Lang Performed By: Zina Van, RDCS, RVT
== END | disposition home or self-care (01) ==
LOC: CVS 08:57
PROVIDERS: PCP Family Medicine; Referring Provider Nurse Practitioner Gerontology; Visit Provider Nurse Practitioner Gerontology
DX: I34.1 Nonrheumatic mitral (valve) prolapse (principal); I48.91 Unspecified atrial fibrillation
CPT/HCPCS: 93306

== ENCOUNTER 2023-09-19 10:19 | Day surgery (SDC) | payer MEDICARE, OTHER, SELFPAY ==
--- NOTE | 2023-09-12 08:22 | RAD_ITS ---
STUDY: X-RAY CHEST REASON FOR EXAM: Female, 77 years old. Preop for cardioversion TECHNIQUE: PA and lateral views of the chest. COMPARISON: 2019 FINDINGS: Chronic elevation of the right hemidiaphragm The lungs are clear and expanded. There is no demonstrated pleural abnormality. Normal size heart. Normal mediastinum and scot. Normal visualized pulmonary arteries. There is atherosclerotic calcification of the aortic arch with tortuosity. Normal visualized thoracic spine. Normal visualized ribs, clavicles, and shoulders. There is no demonstrated abnormality of the visualized soft tissue structures of the upper abdomen. RAD/Chest PA and Lateral IMPRESSION: No acute pulmonary process Electronically Signed: Conor Queen MD at 23:40 EDT ,
[2023-09-12 09:34] LABS: Anion Gap 2 (5-15); BUN 7 mg/dL (7-18); BUN/Creat Ratio 9.5 RATIO (10-20); Calcium,Total 9.1 mg/dL (8.5-10.1); Chloride 104 mmol/L (98-107); Creatinine, Serum 0.74 mg/dL (0.55-1.02); EST Glomerular Filtration Rate 82 mL/min (>60); Est Glom Filt Rate - Afr Amer 99 mL/min (>60); Glucose 142 mg/dL (74-106); Potassium 4.3 mmol/L (3.5-5.1); Sodium Level 138 mmol/L (136-145)
[2023-09-16 13:48] VITALS: BMI 31.6
--- NOTE | 2023-09-19 13:37 | PRO.PCM_ITS ---
Procedure Report Date of Procedure: 09/19/23 DC cardioversion 77-year-old lady with a history of atrial fibrillation who has been on antic oagulation here for DC cardioversion. Patient was seen by Dr. Garcia of the critical care division. Informed consent was obtained. Anterior-posterior pads were applied. 200 J of biphasic DC cardioversion energy were applied after patient had received 60 mg of intravenous propofol. The patient converted back to sinus rhythm immediately and tolerated the procedure well. Conclusion: Successful DC cardioversion from atrial fibrillation to sinus rhythm. Follow-up as per office protocol.
--- NOTE | 2023-09-19 14:17 | PCM.OP.PRO ---
Procedure Report Date of Procedure: 09/19/23 CONSCIOUS SEDATION REPORT BRIEF HISTORY OF PRESENT ILLNESS: The patient is a 77-year-old female who presented to [facility] for an elective outpatient cardioversion due to underlying atrial fibrillation. The patient reports no PO intake since midnight, but is currently therapeutic on anticoagulation. The patient does not have a history of MARK. The patient reports a history of previous smoking and COPD. Patient states that she is on Trelegy and compliant with therapy. The patient denies any recent constitutional symptoms such as fevers, chills, nausea or vomiting. The patient denies previous applicable anesthetic complications. Patient's last ejection fraction was noted to be 60% PHYSICAL EXAMINATION: VITAL SIGNS: Reviewed and were acceptable. GENERAL: The patient is a female, in no apparent distress, speaking in full sentences. HEENT: Normocephalic, atraumatic. Mucous membranes are moist and pink. Good mouth opening noted. Trachea is midline. Good neck mobility. MP II CHEST: S1, S2 irregularly irregular. No murmurs, rubs or gallops were noted. LUNGS: Clear to auscultation bilaterally without appreciable wheezes, rales or rhonchi. ABDOMEN: Soft, nontender, nondistended. Positive bowel sounds. EXTREMITIES: There is no clubbing, cyanosis or edema. ASA Class: II DESCRIPTION OF PROCEDURE: After confirmation of informed consent, the patient's anesthesia plan was reviewed in detail. Propofol was chosen. Risks and benefits were reviewed and the patient agreed to proceed. At 1:31 PM, the patient was given 40 mg of propofol. The patient required a total of 50 mg of propofol throughout the procedure to achieve appropriate sedation. The patient achieved an appropriate level of sedation and received 1 attempt synchronized cardioversion, at [address] Eric at the bedside. This was successful in achieving normal sinus rhythm. The patient was monitored until 1:45 PM, at which time the patient reached their baseline mental status and function. The patient tolerated the procedure well. COMPLICATIONS: None ESTIMATED BLOOD LOSS: None RECOMMENDATIONS: Okay to recover in usual fashion. Procedures Pulmonary 9xxxx: [id number] Con Sedation
== END 2023-09-19 14:30 | disposition home or self-care (01) ==
PROVIDERS: Nurse Practitioner Gerontology; PCP Family Medicine; Referring Provider Internal Medicine Cardiovascular Disease; Visit Provider Internal Medicine Cardiovascular Disease
DX: I48.91 Unspecified atrial fibrillation (principal); J44.9 Chronic obstructive pulmonary disease, unspecified; E11.9 Type 2 diabetes mellitus without complications; Z79.84 Long term (current) use of oral hypoglycemic drugs; Z79.01 Long term (current) use of anticoagulants; Z79.899 Other long term (current) drug therapy; Z79.890 Hormone replacement therapy; K21.9 Gastro-esophageal reflux disease without esophagitis; E78.00 Pure hypercholesterolemia, unspecified; Z87.891 Personal history of nicotine dependence; I08.1 Rheumatic disorders of both mitral and tricuspid valves; Z79.51 Long term (current) use of inhaled steroids
CPT/HCPCS: 36415; 71046; 80048; 92960; 93005; J7040

== ENCOUNTER → 2023-10-21 | Outpatient (CLI) | payer MEDICARE, OTHER, SELFPAY ==
[2023-10-21 10:26] LABS: Absolute Lymphocyte Count 1.56 X10^3/uL (0.83-4.51); Basophil# 0.14 X10^3/uL; Basophil% 1.3 % (0-1); Eosinophils% 2.8 % (0-5); Hematocrit 41.7 % (37-47); Hemoglobin 12.9 g/dL (12.0-15.0); Lymphocyte # 1.56 X10^3/ul (0.83-4.51); Lymphocyte % 14.4 % (19-41); Mean Corp Hgb Conc 30.9 g/dL (32-36); Mean Corpuscular Volume 84.1 fL (81-99); Mean Platelet Vol. 10.5 fl (6.2-12.0); Monocyte# 0.69 X10^3/uL; Monocyte% 6.4 % (0-10); NRBC Flagged by Analyzer 0 % (0-5); Neutrophil # 8.04 X10^3/uL (2.7-7.7); Neutrophil % 74.4 % (47-70); Platelet Count 283 K/mm3 (150-450); RBC Distribution Width CV 13.8 % (11.6-14.6); RBC Distribution Width SD 42.1 fl (35.1-43.9); Red Blood Count 4.96 M/mm3 (4.2-5.4); White Blood Count 10.8 K/mm3 (4.4-11.0)
[2023-10-21 10:38] LABS: Hemoglobin A1c 6.5 % (3.8-5.6)
[2023-10-21 11:21] LABS: ALB/GLOB Ratio 0.9 RATIO (0.9-2.4); AST(SGOT) 56 U/L (15-37); Alanine Aminotransfer ALT/SGPT 101 U/L (13-56); Albumin, Serum 3.3 g/dL (3.2-5.0); Alkaline Phosphatase 159 U/L (45-117); Anion Gap 2 (5-15); BUN 8 mg/dL (7-18); BUN/Creat Ratio 11.2 RATIO (10-20); Chloride 100 mmol/L (98-107); Cholesterol 91 mg/dL (200); Creatinine, Serum 0.72 mg/dL (0.55-1.02); EST Glomerular Filtration Rate 84 mL/min (>60); Est Glom Filt Rate - Afr Amer 102 mL/min (>60); Free T3 1.8 pg/mL (2.18-3.98); Globulin 3.6 g/dL (2.2-4.2); Glucose 127 mg/dL (74-106); High Density Lipoprotein 29 mg/dL; Potassium 4.5 mmol/L (3.5-5.1); Protein, Total 6.9 g/dL (6.4-8.2); Sodium Level 136 mmol/L (136-145); T4 Free Direct 0.91 ng/dL (0.76-1.46); Thyroid Stim Hormone (TSH) 7.16 uIU/mL (0.358-3.74); Triglycerides 110 mg/dL; Very Low Density Lipoprotein 22 mg/dL (5-40)
== END | disposition home or self-care (01) ==
LOC: LAB 09:45
PROVIDERS: PCP Family Medicine; Referring Provider Family Medicine; Visit Provider Family Medicine
DX: E11.9 Type 2 diabetes mellitus without complications (principal); E03.9 Hypothyroidism, unspecified; E78.5 Hyperlipidemia, unspecified
CPT/HCPCS: 36415; 80053; 80061; 83036; 84439; 84443; 84481; 85025

== ENCOUNTER → 2023-11-07 | Outpatient (CLI) | payer MEDICARE, OTHER, SELFPAY ==
--- NOTE | 2023-11-07 09:32 | RAD_ITS ---
HISTORY: SOB. TECHNIQUE: XR Chest 2 Views. COMPARISON: 09/12/2023. FINDINGS: CARDIOMEDIASTINAL BORDERS: Cardiac silhouette within normal limits in size. Mediastinal contour also unchanged with calcification of the aorta. LUNGS: Chronic right apical scarring. Chronic elevation of the right hemidiaphragm. PLEURA: No pleural effusion or pneumothorax seen. OSSEOUS STRUCTURES: Mild degenerative change. RAD/Chest PA and Lateral IMPRESSION: No acute cardiopulmonary process identified. Electronically Signed: Christel Desai MD at 10:40 EDT ,
== END | disposition home or self-care (01) ==
LOC: RAD 09:30
PROVIDERS: PCP Family Medicine; Referring Provider Internal Medicine Pulmonary Disease; Visit Provider Internal Medicine Pulmonary Disease
DX: R06.02 Shortness of breath (principal)
CPT/HCPCS: 71046

== ENCOUNTER → 2023-12-06 | Outpatient (CLI) | payer MEDICARE, OTHER, SELFPAY ==
[2023-12-06 18:21] LABS: CRP 4.91 mg/L (0.0-3.0)
[2023-12-08 16:10] LABS: Endomysial Antibody IgA Negative (Negative); Immunoglobulin A 141 mg/dL (64-422); t-Transglutaminase IgA <2 U/mL (0-3)
== END | disposition home or self-care (01) ==
LOC: MTLAB 16:06
PROVIDERS: PCP Family Medicine; Referring Provider Internal Medicine Gastroenterology; Visit Provider Internal Medicine Gastroenterology
DX: R19.7 Diarrhea, unspecified (principal)
CPT/HCPCS: 36415; 82784; 83516; 86140; 86255

== ENCOUNTER → 2024-04-16 | Outpatient (CLI) | payer MEDICARE, OTHER, SELFPAY ==
--- NOTE | 2024-04-16 08:18 | BI_ITS ---
MAMMOGRAPHY - BILATERAL SCREENING REASON FOR EXAM: Female, 78 years old. Routine annual screening examination. PERTINENT HISTORY: Grandmother with breast cancer. Aunt with breast cancer. History of prior right stereotactic breast biopsy and right excisional breast biopsy. TECHNIQUE: Digital bilateral breast denise (3D mammographic acquisition) in the CC and MLO projections. 2-D mediolateral oblique (MLO) and craniocaudad (CC) views of both breasts were obtained. CAD: Full Field Digital Mammography with Computer Added Detection was performed. COMPARISON: Comparison is made with prior study dated January 21, 2023 and September 16, 2021. FINDINGS: Breast Composition: The breasts are almost entirely fatty. There are no dominant masses or suspicious calcifications. Once again, a tissue clip marker is seen in the central lateral aspect of the right breast. No other significant abnormalities are identified. There has been no significant change since the prior study. BI/SCRN MAMM (CAD)W/DENISE BILAT IMPRESSION: Stable bilateral screening mammogram. Yearly follow-up mammogram recommended. (A) ASSESSMENT CATEGORY: BIRADS Category 2: Benign. A letter regarding these results will be sent to the patient by the facility within 30 days. Approximately 10% of breast cancers are not detected by mammography. A normal mammogram should not delay biopsy of a clinically suspicious abnormality. [id number] Electronically Signed: Tino Garcia MD at 11:14 EDT ,
[2024-04-16 09:38] LABS: ALB/GLOB Ratio 0.8 RATIO (0.9-2.4); AST(SGOT) 32 U/L (15-37); Alanine Aminotransfer ALT/SGPT 31 U/L (13-56); Albumin, Serum 3.2 g/dL (3.2-5.0); Alkaline Phosphatase 100 U/L (45-117); Anion Gap 4 (5-15); BUN 8 mg/dL (7-18); BUN/Creat Ratio 11.3 RATIO (10-20); Calcium,Total 9.2 mg/dL (8.5-10.1); Chloride 103 mmol/L (98-107); Creatinine, Serum 0.71 mg/dL (0.55-1.02); EST Glomerular Filtration Rate 85 mL/min (>60); Est Glom Filt Rate - Afr Amer 103 mL/min (>60); Free T3 2.3 pg/mL (2.18-3.98); Globulin 3.8 g/dL (2.2-4.2); Glucose 139 mg/dL (74-106); Sodium Level 139 mmol/L (136-145); Thyroid Stim Hormone (TSH) 0.617 uIU/mL (0.358-3.740)
== END | disposition home or self-care (01) ==
PROVIDERS: PCP Family Medicine; Referring Provider Family Medicine; Visit Provider Family Medicine
DX: Z12.31 Encounter for screening mammogram for malignant neoplasm of breast (principal); E11.9 Type 2 diabetes mellitus without complications; E03.9 Hypothyroidism, unspecified; R74.8 Abnormal levels of other serum enzymes
CPT/HCPCS: 36415; 77063; 77067; 80053; 84439; 84443; 84481

== ENCOUNTER → 2024-08-24 | Outpatient (CLI) | payer MEDICARE, OTHER, SELFPAY ==
[2024-08-24 10:02] LABS: Absolute Lymphocyte Count 1.37 X10^3/uL (0.83-4.51); Absolute Neutrophil Count 8.7 X10^3/uL (2.0-7.7); Basophil# 0.11 X10^3/uL; Eosinophil# 0.22 X10^3/uL; Hematocrit 41.4 % (37-47); Hemoglobin 12.6 g/dL (12.0-15.0); Lymphocyte # 1.37 X10^3/ul (0.83-4.51); Lymphocyte % 12.2 % (19-41); Mean Corp Hgb Conc 30.4 g/dL (32-36); Mean Corpuscular Hgb 25.4 pg (27.0-32.0); Mean Corpuscular Volume 83.5 fL (81-99); Mean Platelet Vol. 9.5 fl (6.2-12.0); Monocyte# 0.78 X10^3/uL; Monocyte% 6.9 % (0-10); NRBC Flagged by Analyzer 0 % (0-5); Neutrophil # 8.71 X10^3/uL (2.7-7.7); Neutrophil % 77.5 % (47-70); Platelet Count 265 K/mm3 (150-450); RBC Distribution Width SD 42.6 fl (35.1-43.9); Red Blood Count 4.96 M/mm3 (4.2-5.4); White Blood Count 11.2 K/mm3 (4.4-11.0)
[2024-08-24 11:11] LABS: EST Glomerular Filtration Rate 90 (>60)
[2024-08-24 11:22] LABS: ALB/GLOB Ratio 1.2 RATIO (0.9-2.4); AST(SGOT) 35 U/L (<=31); Albumin, Serum 3.8 g/dL (3.4-4.8); Alkaline Phosphatase 117 U/L (35-104); Anion Gap 9 (5-15); BUN 7 mg/dL (4-19); BUN/Creat Ratio 11.7 RATIO (10-20); Calcium 9.7 mg/dL (7.6-11.0); Carbon Dioxide 29.4 mmol/L (22.0-29.0); Chloride 99 mmol/L (96-108); Creatinine, Serum 0.64 mg/dL (0.70-1.20); Globulin 3.3 g/dL (2.2-4.2); Glucose 134 mg/dL (70-99); Potassium 4.5 mmol/L (3.3-5.1); Protein, Total 7.1 g/dL (5.9-8.4); Sodium Level 137 mmol/L (133-145)
[2024-08-24 11:23] LABS: Alanine Aminotransfer ALT/SGPT 29 U/L (<=34); Ferritin 30 ng/mL (22-378); Free T3 2.4 pg/mL (2.18-3.98); Iron 45 ug/dL (50-170); Total Bilirubin 0.26 mg/dL (0.00-1.30); Vitamin B12 1281 pg/mL (180-914); Vitamin D,25 Hydroxy 45.6 ng/mL (30-100)
== END | disposition home or self-care (01) ==
LOC: LAB 09:40
PROVIDERS: PCP Family Medicine; Referring Provider Family Medicine; Visit Provider Family Medicine
DX: E03.9 Hypothyroidism, unspecified (principal); E11.9 Type 2 diabetes mellitus without complications; E78.5 Hyperlipidemia, unspecified; E55.9 Vitamin D deficiency, unspecified; D64.9 Anemia, unspecified; R53.83 Other fatigue; Z51.81 Encounter for therapeutic drug level monitoring
CPT/HCPCS: 36415; 80053; 82306; 82607; 82728; 83540; 84439; 84443; 84481; 85025

== ENCOUNTER → 2024-11-09 | Outpatient (CLI) | payer MEDICARE, OTHER, SELFPAY ==
--- NOTE | 2024-11-09 07:56 | CT_ITS ---
PROCEDURE: ABDOMEN/PELVIS WITH CONTRAST 11/09/2024 REASON FOR EXAM: ABD PAIN Lower abdominal pain. Possible hernia. TECHNIQUE: Abdomen and pelvis CT with intravenous contrast. Coronal and Sagittal reconstruction series were provided. PATIENT PREPARATION: Per protocol ORAL CONTRAST TYPE: Given. CONTRAST: Isovue-300 VOLUME: 100 mL One or more dose reduction techniques were used (e.g., Automated exposure control, adjustment of the mA and/or kV according to patient size, use of iterative reconstruction technique. RADIATION DOSE SUMMARY: CTDlvol: 16 mGy DLP: 1094.84 mGycm COMPARISON: None FINDINGS: Lung bases: Minimal increased markings at the lung bases suggestive of atelectasis and/or possible linear scarring more prominent at the right lung base. Liver: Diffuse fatty infiltration. Gallbladder: Surgically absent. Spleen: There is a 7.7 mm hypodensity in the medial midportion of the spleen suggestive of a small cyst. Pancreas: Normal size without evidence of mass surrounding inflammation or ductal dilation. Adrenals: Unremarkable Kidneys: 1 cm cyst in the upper pole of the left kidney. Bladder: Unremarkable Reproductive Organs: Unremarkable Bowel: Colonic diverticulosis without diverticulitis. Appendix: Unremarkable Lymph nodes: Unremarkable. Vasculature: Mild diffuse atherosclerotic calcifications are noted. Peritoneum / Retroperitoneum: Tiny left inguinal hernia containing fat. Grade 3 anterior listhesis of L5 on S1 due to spondylolysis of the pars interarticularis of the L5 vertebrae. Bones: Grade 3 anterior listhesis of L5 on S1 due to spondylolysis of the pars interarticularis of the L5 vertebrae.. Disc space narrowing and disc degeneration at the L4-L5 level. CT/Abdomen/Pelvis WITH Contrast IMPRESSION: Fatty infiltration of the liver. Status post cholecystectomy. Findings suggestive of a 7.7 mm cyst in the medial midportion of the spleen. Small right renal cyst. Sigmoid diverticulosis. Findings suggestive of a tiny left inguinal hernia containing fat. OVERALL FINAL ASSESSMENT: . LI-RADS is not meant to be used in patients <18 years or patients with cirrhosi s due to congenital hepatic fibrosis or due to vascular disorders, because these patients have a lower chance of developing HC C. Reading Location: [facility]
[2024-11-09 08:21] LABS: CREATININE FINGERSTICK < 1.0 mg/dL (0.55-1.02); EGFR FINGERSTICK > 60.0000 mL/min (>60)
== END | disposition home or self-care (01) ==
LOC: CT 07:56
PROVIDERS: PCP Family Medicine; Referring Provider Surgery; Visit Provider Surgery
DX: R10.9 Unspecified abdominal pain (principal)
CPT/HCPCS: 74177; Q9967

== ENCOUNTER → 2024-12-24 | Outpatient (CLI) | payer MEDICARE, OTHER, SELFPAY ==
--- NOTE | 2024-12-24 10:19 | RAD_ITS ---
PROCEDURE: HIP, UNI W/ PELVIS 2-3 VIEWS 12/24/2024 REASON FOR EXAM: LEFT HIP PAIN TECHNIQUE: Three-view left hip to include the AP pelvis COMPARISON: None. RAD/HIP, UNI W/ Pelvis 2-3 Views IMPRESSION: Calcification of the aorta and iliac arteries is noted. Prominent degenerative changes are seen of the lower lumbar spine. Mild sacroiliac joint degenerative changes are seen. Bilateral hip joint degenerative changes are seen, with marked medial narrowing noted on the right moderate central to medial narrowing noted on the left. No evidence of femoral head osteonecrosis. No acute fracture or dislocation is seen. Reading Location: [place] [id number]
== END | disposition home or self-care (01) ==
LOC: RAD 10:16
PROVIDERS: PCP Family Medicine; Referring Provider Family Medicine; Visit Provider Family Medicine
DX: M25.552 Pain in left hip (principal)
CPT/HCPCS: 73502

== ENCOUNTER → 2025-01-01 | Outpatient (CLI) | payer MEDICARE, OTHER, SELFPAY ==
[2025-01-01 12:46] LABS: Hematocrit 40.5 % (37-47); Hemoglobin 12.6 g/dL (12.0-15.0); Immature Granulocytes Count 0.050 X10^3/uL (0.0-0.0); Mean Corp Hgb Conc 31.1 g/dL (32-36); Mean Corpuscular Volume 85.1 fL (81-99); Mean Platelet Vol. 10.2 fl (6.2-12.0); NRBC Flagged by Analyzer 0 % (0-5); Platelet Count 227 K/mm3 (150-450); RBC Distribution Width CV 13.3 % (11.6-14.6); RBC Distribution Width SD 41.1 fl (35.1-43.9); Red Blood Count 4.76 M/mm3 (4.2-5.4); White Blood Count 8.8 K/mm3 (4.4-11.0)
[2025-01-01 13:23] LABS: Ferritin 58 ng/mL (22-378); Iron 73 ug/dL (50-170); Vitamin B12 1229 pg/mL (180-914); Vitamin D,25 Hydroxy 57.4 ng/mL (30-100)
[2025-01-01 13:34] LABS: AST(SGOT) 25 U/L (<=31); Alanine Aminotransfer ALT/SGPT 33 U/L (<=34); Albumin, Serum 3.8 g/dL (3.4-4.8); Alkaline Phosphatase 102 U/L (35-104); Anion Gap 9 (5-15); BUN 7 mg/dL (4-19); BUN/Creat Ratio 9.5 RATIO (10-20); Calcium,Total 9.3 mg/dL (7.6-11.0); Carbon Dioxide 29.4 mmol/L (21.0-32.0); Chloride 100 mmol/L (98-108); Globulin 2.7 g/dL (2.2-4.2); Glucose 147 mg/dL (70-99); Potassium 4.4 mmol/L (3.3-5.1)
== END | disposition home or self-care (01) ==
LOC: BFHLAB 09:58
PROVIDERS: PCP Family Medicine; Visit Provider Family Medicine
DX: E55.9 Vitamin D deficiency, unspecified (principal); D50.9 Iron deficiency anemia, unspecified; E53.8 Deficiency of other specified B group vitamins; I10 Essential (primary) hypertension; E03.9 Hypothyroidism, unspecified
CPT/HCPCS: 36415; 80053; 82306; 82607; 82728; 83540; 84439; 84443; 85025

== ENCOUNTER → 2025-04-22 | Outpatient (CLI) | payer MEDICARE, OTHER, SELFPAY ==
[2025-04-22 15:50] LABS: PTHIN 57 pg/mL (11-61)
[2025-04-22 15:59] LABS: AST(SGOT) 41 U/L (<=31); Alanine Aminotransfer ALT/SGPT 26 U/L (<=34); Albumin, Serum 4.0 g/dL (3.4-4.8); Alkaline Phosphatase 98 U/L (35-104); Anion Gap 9 (5-15); BUN 5 mg/dL (4-19); BUN/Creat Ratio 8.9 RATIO (10-20); Calcium 9.2 mg/dL (7.6-11.0); Calcium,Total 9.2 mg/dL (7.6-11.0); Carbon Dioxide 28.7 mmol/L (21.0-32.0); Chloride 103 mmol/L (98-108); Ferritin 42 ng/mL (22-378); Globulin 2.6 g/dL (2.2-4.2); Glucose 112 mg/dL (70-99); Potassium 4.1 mmol/L (3.3-5.1)
== END | disposition home or self-care (01) ==
LOC: MTLAB 11:17
PROVIDERS: PCP Family Medicine; Referring Provider Dermatology Pediatric Dermatology; Visit Provider Dermatology Pediatric Dermatology
DX: D64.9 Anemia, unspecified (principal)
CPT/HCPCS: 36415; 80053; 82310; 82728; 83970; 86376

== ENCOUNTER → 2025-04-24 | Outpatient (CLI) | payer MEDICARE, OTHER, SELFPAY ==
--- NOTE | 2025-04-24 14:38 | BI_ITS ---
EXAM: BI/SCRN MAMM (CAD)W/DENISE BILAT
== END | disposition home or self-care (01) ==
LOC: OPBI 14:36
PROVIDERS: PCP Family Medicine; Referring Provider Family Medicine; Visit Provider Family Medicine
DX: Z12.31 Encounter for screening mammogram for malignant neoplasm of breast (principal)
CPT/HCPCS: 77063; 77067

== ENCOUNTER 2025-05-15 16:30 | Emergency (ER) | payer MEDICARE, OTHER, SELFPAY ==
[2025-05-15 16:32] VITALS: BP 118/80; PULSE 84; RESP 18; TEMP 35.8; O2SAT 95; BMI 30.8
[2025-05-15] MEDS: 0.9% Normal Saline (1000mL) 1,000 ML 999 ML IV (17:22)
--- NOTE | 2025-05-15 17:36 | ED.VIS.CHEST ---
HPI History of Present Illness Chief Complaint: Chest Pain Narrative Narrative: Patient is a 79-year-old female presenting to the emergency department for an episode of chest pain and lightheadedness. Patient has a past medical history of diabetes, hypothyroidism, former smoker, PVCs, PACs, COPD, paroxysmal SVT and mitral valve prolapse. Patient states that this afternoon a few hours ago she developed left-sided chest pressure. States that she was also having some pressure in her left shoulder blade. States that it lasted for a few hours and is now stopped. Patient endorses lightheadedness with it. Denies any room spinning or vertiginous symptoms. She states this is improved as well since sitting. She was sick with URI type symptoms that she suspected was COVID 2 weeks ago. She followed up with her primary care doctor who started her on Augmentin and prednisone. She denies any shortness of breath, abdominal pain, nausea, vomiting, diaphoresis. Denies any recent diarrhea. Denies any lower extremity edema. Denies any recent travel, hospitalizations or surgeries. States she had a provoked DVT in the past after the of one of her children. She is on Eliquis. [facility] Medical History Diabetes Hypothyroidism Former smoker DVT (deep venous thrombosis) Abdominal pain Encounter for screening for COVID-19 URI (upper respiratory infection) Ectopic atrial tachycardia Premature ventricular contraction Premature atrial contraction Pure hypercholesterolemia Diabetes mellitus type 2, noninsulin dependent GERD (gastroesophageal reflux disease) COPD (chronic obstructive pulmonary disease) Nonrheumatic mitral (valve) prolapse Nonrheumatic tricuspid valve disorder Paroxysmal SVT (supraventricular tachycardia) Hyperlipidemia Home Medications ?Medication ?Instructions ?Recorded ?Last Taken ?Type duloxetine 60 mg capsule,delayed 60 mg PO DAILY FIBROMYALGA 02/17/15 Unknown History release ergocalciferol (vitamin D2) 1,250 50,000 unit PO WE SUPPLEMENT 02/17/15 03/19/20 History mcg (50,000 unit) capsule pravastatin 20 mg tablet 20 mg PO QHS CHOLESTEROL 02/17/15 03/19/20 History albuterol sulfate 90 mcg/actuation 2 puff inhalation Q4H PRN Sob &/Or 11/12/19 03/20/20 History aerosol inhaler (ProAir HFA) Wheezing amitriptyline 10 mg tablet 20 mg PO QHS SLEEP 11/12/19 Unknown History B-complex with vitamin C (Super B 1 tablet PO DAILY 10/13/20 Unknown History Complex-Vitamin C tablet) fluticasone fur. 100 mcg-umeclid 1 inh inhalation DAILY 10/13/20 Unknown History 62.5 mcg-vilant 25 mcg inhalat.powder (Trelegy Ellipta) multivitamin 1 tablet PO DAILY 10/13/20 Unknown History metformin 500 mg tablet 500 mg PO BID DM 08/07/21 Unknown History esomeprazole magnesium 40 mg 40 mg PO BID GERD 07/21/23 Unknown History capsule,delayed release apixaban 5 mg tablet (Eliquis) 5 mg PO BID #180 tabs 07/25/24 Unknown Rx diltiazem HCl 120 mg 120 mg PO BID #180 caps 10/31/24 Unknown Rx capsule,extended release 24 hr levothyroxine 100 mcg tablet 100 mcg PO QDAY 02/21/25 Unknown History (Synthroid) metoprolol succinate 50 mg 50 mg PO DAILY HEART #90 tabs 02/21/25 Unknown Rx tablet,extended release 24 hr Allergy/AdvReac Type Severity Reaction Status Date / Time cyclobenzaprine Allergy Unknown Verified 05/15/25 16:32 diclofenac Allergy Unknown Verified 05/15/25 16:32 trifluoperazine Allergy Unknown Verified 05/15/25 16:32 Family History Mother Heart disease Brother Myocardial infarction, Onset Age: 63 Brother Diabetes Surgical History History of colonoscopy (~02/2020) History of breast surgery History of tonsillectomy History of cholecystectomy Social History household members: family housing: house Smoking Status: Former smoker alcohol intake: never substance use type: does not use diet: diabetic caffeine: No what type of physical activity do you participate in: walking frequency: daily duration: 30-45 minutes/day seatbelt use: always do you feel safe at home: Yes ROS ROS ED ROS Narrative see HPI EXAM Physical Exam Narrative Exam Narrative: Vital signs: Reviewed General: Alert and oriented x 3. No acute distress. Well-appearing. HEENT: Head is normocephalic and atraumatic, sinuses nontender, pupils equal round and reactive. Nares are patent. Oropharynx and throat exams normal. Neck: Supple without lymphadenopathy nontender Cardiovascular: Regular rate and rhythm, no murmurs. No rubs or gallops. Normal S1 and S2 Respiratory: Clear to auscultation bilaterally. No wheezes, rales, rhonchi. Intermittently saturating down to the 90% on room air. Abdominal: Soft and nontender. Normal bowel sounds. No guarding or rebound. Nonsurgical abdomen Extremities: No lower extremity edema. No tenderness. No bruising. Normal range of motion. Normal sensation. Skin: No rash or redness. Neurological: Cranial nerves II through XII are grossly intact. Normal strength and sensation. Normal cerebellar function The rest of the physical exam is unremarkable Const Vital Signs: 05/15/25 16:32 05/15/25 18:00 05/15/25 18:58 Temperature 96.4 F L Temperature Source Temporal Pulse Rate 84 65 64 Respiratory Rate 18 18 18 Blood Pressure 118/80 133/62 H 127/61 H Blood Pressure Mean 92 85 83 Pulse Ox 95 97 93 Oxygen Delivery Method Room Air Room Air Room Air MDM MDM MDM Narrative Medical decision making narrative: Patient is a 79-year-old female presenting to the emergency department for an episode of left-sided chest pressure and lightheadedness. Patient was seen and examined. Vitals are stable. Patient resting in bed comfortably no acute distress. Differential includes but is not limited to: ACS, pneumonia, viral illness, less likely PE given the patient is on Eliquis Given the patient's history of DVT and intermittent episodes of hypoxia, D-dimer was obtained however I think it is much less likely a pulmonary embolism given her use of Eliquis. In addition her DVT was provoked in the past. She will jump back up to 97-98% after the intermittent hypoxia and is asymptomatic. Does not drop below 90%. EKG shows normal sinus rhythm with nonspecific ST and T wave abnormalities, nothing meeting STEMI criteria. No dysrhythmia. Chest x-ray and blood work was obtained. Patient was given fluids. CBC with a nonspecific mild leukocytosis of 15.1 and a normal hemoglobin. D-dimer is negative. BMP with no significant abnormalities. Troponin and reflex within normal limits with no significant delta change. Chest x-ray reviewed by myself, no opacities, pneumothorax or mediastinum. Radiology read with negative findings as well. Patient ambulated to and from the bathroom and had some mild lightheadedness but no dizziness. States she is feeling better after the fluids. States she sometimes feels like it is after being sick. Updated on the negative workup. All questions answered. Patient discharged from the Emergency Department. I do not feel that the patient's evaluation reveals any acute reason for admission at this time. I instructed them to either follow-up with their primary care physician or promptly return to the Emergency Department for reevaluation should symptoms worsen or new symptoms develop. I explained what symptoms would indicate the need to return to the emergency department. Shared decision making was used. The patient voiced understanding of the treatment plan and is agreeable with it. Clinical impression Chest pain Lightheadedness History & Record Review Discussion w/independent historian: Patient and Family Lab Data Attestation: I reviewed the patient's lab results. Labs: Laboratory Results - last 24 hr 05/15/25 05/15/25 16:42 18:55 WBC 15.1 H RBC 5.29 Hgb 13.8 Hct 44.6 MCV 84.3 MCH 26.1 L MCHC 30.9 L RDW Std Deviation 41.1 RDW Coeff of Fernie 13.2 Plt Count 302 MPV 10.2 Immature Gran % (Auto) 0.600 Neut % (Auto) 77.6 H Lymph % (Auto) 10.8 L [place] % (Auto) 7.9 Eos % (Auto) 2.1 Baso % (Auto) 1.0 Absolute Neuts (auto) 11.7 H Absolute Lymphs (auto) 1.63 Nucleated RBC % 0 D-Dimer Quant (PE/DVT) < 0.27 L Sodium 137 Potassium 3.7 Chloride 98 Carbon Dioxide 31.3 Anion Gap 7 BUN 10 Creatinine 0.64 L Estim Creat Clear Calc 62.02 Est GFR (MDRD) Non-Af 90 BUN/Creatinine Ratio 15.5 Glucose 105 H Calcium 9.3 Troponin T High Sens 8 Troponin T Hi Sens 2 Hr 9 Radiography Chest X-Ray - ED: 2 View, Read by ED Physician, Normal, No Acute Disease and No Infiltrates Diagnostic Testing: Clinical Impression(s) from Imaging Studies Chest X-Ray 05/15/25 17:53 IMPRESSION: NO ACUTE FINDINGS. Reading Location: [address] Discharge Plan Triage Chief Complaint: Chest Pain ED Provider: Ivone Marsh Dx/Rx/DC Orders Clinical Impression: Chest pain, Episodic lightheadedness Instructions: ED Chest Pain, Uncertain Cause Prescriptions: No Action metformin 500 mg tablet 500 mg PO BID Rx Instructions: Patient states that she does not take it every day albuterol sulfate [ProAir HFA] 90 mcg/actuation HFA aerosol inhaler 2 puff INHALATION Q4H PRN (Reason: Sob &/Or Wheezing) Trelegy Ellipta 100-62.5-25 mcg blister with device 1 inh INHALATION DAILY multivitamin Tablet 1 tablet PO DAILY B-complex with vitamin C [Super B Complex-Vitamin C] Tablet 1 tablet PO DAILY levothyroxine [Synthroid] 100 mcg tablet 100 mcg PO QDAY metoprolol succinate 50 mg tablet extended release 24 hr 50 mg PO DAILY Qty: 90 3RF pravastatin 20 MG tablet 20 mg PO QHS ergocalciferol (vitamin D2) 50,000 UNIT capsule 50,000 unit PO WE duloxetine 60 MG capsule 60 mg PO DAILY amitriptyline 10 mg tablet 20 mg PO QHS esomeprazole magnesium 40 mg capsule,delayed release(DR/EC) 40 mg PO BID Eliquis 5 mg tablet 5 mg PO BID Qty: 180 3RF diltiazem HCl 120 mg capsule,extended release 24hr 120 mg PO BID Qty: 180 3RF Primary Care Provider: Lisa Lang Referrals: Lisa Lang DO [Primary Care Provider, Family Practice] - As soon as possible Activity Restrictions/Additional Instructions: Your evaluation in the Emergency Department did not reveal any acute reason for admission. However, I want to emphasize that you may be early in the course of a disease process or illness even if it is not present. For this reason you should follow-up within 24 hours for reevaluation with either your primary care physician or if necessary back here in the Emergency Department. You should return to the Emergency Department immediately if your symptoms worsen or new symptoms develop. Print Language: Andorran Disposition Disposition: Home, Self Care
[2025-05-15 17:45] LABS: Hematocrit 44.6 % (37-47); Hemoglobin 13.8 g/dL (12.0-15.0); Immature Granulocytes Count 0.090 X10^3/uL (0.0-0.0); Mean Corp Hgb Conc 30.9 g/dL (32-36); Mean Corpuscular Volume 84.3 fL (81-99); Mean Platelet Vol. 10.2 fl (6.2-12.0); NRBC Flagged by Analyzer 0 % (0-5); Platelet Count 302 K/mm3 (150-450); RBC Distribution Width CV 13.2 % (11.6-14.6); RBC Distribution Width SD 41.1 fl (35.1-43.9); Red Blood Count 5.29 M/mm3 (4.2-5.4); White Blood Count 15.1 K/mm3 (4.4-11.0)
--- NOTE | 2025-05-15 17:53 | RAD_ITS ---
PROCEDURE: CHEST PA AND LATERAL 05/15/2025 REASON FOR EXAM: CHEST PAIN TECHNIQUE: Procedure Code: RADCXR Modality: DX Procedure: CHEST PA AND LATERAL COMPARISON: 11/07/2023. FINDINGS: The heart is enlarged. Elevation of the right hemidiaphragm. The lungs are clear. No acute osseous abnormalities. RAD/Chest PA and Lateral IMPRESSION: NO ACUTE FINDINGS. Reading Location: [id number]
[2025-05-15 18:00] VITALS: BP 133/62; PULSE 65; RESP 18; O2SAT 97
[2025-05-15 18:00] LABS: Troponin T High Sensitivity 8 ng/L (<=14)
[2025-05-15 18:03] LABS: Anion Gap 7 (5-15); BUN 10 mg/dL (4-19); BUN/Creat Ratio 15.5 RATIO (10-20); Calcium,Total 9.3 mg/dL (7.6-11.0); Carbon Dioxide 31.3 mmol/L (21.0-32.0); Chloride 98 mmol/L (98-108); Estimated Creatinine Clearance 62.02 ml/min (50-250); Glucose 105 mg/dL (70-99); Potassium 3.7 mmol/L (3.3-5.1)
[2025-05-15 18:09] LABS: D-Dimer Quantitative (DVT/PE) < 0.27 FEU/ug/m (0.27-0.49)
[2025-05-15 18:58] VITALS: BP 127/61; PULSE 64; RESP 18; O2SAT 93
[2025-05-15 19:39] LABS: Troponin T High Sens 2 HR 9 ng/L (<=14)
[2025-05-15 20:00] VITALS: BP 133/69; PULSE 63; RESP 18; TEMP 36.2; O2SAT 94
== END 2025-05-15 20:04 | disposition home or self-care (01) ==
PROVIDERS: Emergency Provider Student in an Organized Health Care Education/Training Program; PCP Family Medicine; Visit Provider Student in an Organized Health Care Education/Training Program
DX: R07.9 Chest pain, unspecified (principal); J44.9 Chronic obstructive pulmonary disease, unspecified; E11.9 Type 2 diabetes mellitus without complications; Z86.718 Personal history of other venous thrombosis and embolism; R42 Dizziness and giddiness; Z87.891 Personal history of nicotine dependence; E78.00 Pure hypercholesterolemia, unspecified; Z79.01 Long term (current) use of anticoagulants; E03.9 Hypothyroidism, unspecified; K21.9 Gastro-esophageal reflux disease without esophagitis
CPT/HCPCS: 36415; 71046; 80048; 84484; 85025; 85379; 93005; 96360; 99285; A4216